=== PATIENT | male | born 1960 | race Caucasian/White ===

== ENCOUNTER → 2020-04-09 09:24 | Outpatient (BNVA) | payer MEDICARE, MEDICAID, SELFPAY | PROVIDERS: PCP Internal Medicine; Referring Provider Internal Medicine; Visit Provider Internal Medicine | DX: J44.9 Chronic obstructive pulmonary disease, unspecified (principal); J30.9 Allergic rhinitis, unspecified; R09.02 Hypoxemia; Z79.899 Other long term (current) drug therapy; Z99.81 Dependence on supplemental oxygen | CPT/HCPCS: 99213 ==

== ENCOUNTER → 2020-07-16 09:50 | Outpatient (BNVA) | payer MEDICARE, MEDICAID, SELFPAY | PROVIDERS: PCP Internal Medicine; Visit Provider Internal Medicine | DX: R09.02 Hypoxemia (principal); J30.9 Allergic rhinitis, unspecified; J44.9 Chronic obstructive pulmonary disease, unspecified | CPT/HCPCS: Q3014 ==

== ENCOUNTER → 2020-10-01 11:32 | Outpatient (BNVA) | payer MEDICARE, MEDICAID, SELFPAY | PROVIDERS: PCP Internal Medicine; Visit Provider Internal Medicine | DX: R09.02 Hypoxemia (principal); J30.9 Allergic rhinitis, unspecified; J44.9 Chronic obstructive pulmonary disease, unspecified; Z87.891 Personal history of nicotine dependence; Z99.81 Dependence on supplemental oxygen; Z79.52 Long term (current) use of systemic steroids; Z79.899 Other long term (current) drug therapy | CPT/HCPCS: Q3014 ==

== ENCOUNTER → 2021-01-01 10:56 | Outpatient (REF) | payer MEDICARE, MEDICAID, SELFPAY ==
--- NOTE | 2021-01-01 11:00 | CA_ITS ---
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 The visually estimated ejection fraction is between 60-65%. - There is moderate calcification of the aortic valve. - There is mild mitral annular calcification. Findings Left Ventricle Normal left ventricular cavity size. There is normal left ventricular wall thickness. The left ventricular systolic function is normal. The visually estimated ejection fraction is between 60-65%. There is no evidence of regional wall motion abnormalities. Diastolic function is indeterminate on the basis of available data. Right Ventricle Normal right ventricular cavity size and systolic function. Atria Both atria are normal in size. Aortic Valve There is moderate calcification of the aortic valve. There is no aortic valve stenosis. There is no aortic valve regurgitation. Mitral Valve There is mild mitral annular calcification. There is trace mitral valve regurgitation. There is no mitral valve stenosis. Pulmonic Valve The pulmonic valve was not well visualized. Tricuspid Valve Normal tricuspid valve structure. There is trace tricuspid valve regurgitation. The pulmonary artery systolic pressure is normal. Great Vessels The aortic annulus, sinuses of valsalva, and asc aorta are normal in size. Venous The inferior vena cava is normal in size and collapses greater than 50% with inspiration. Pericardium/Pleural There is no evidence of pericardial effusion. Prior Study Comparison No significant change compared to prior study dated: 11/24/2018. Measurements 2D Linear Measurements IVSd: 1.04 0.6-0.9/0.6-1.0 cm LVIDd: 4.23 3.9-5.3/4.2-5.9 cm LVIDd Index: 2.30 2.4-3.2/2.2-3.1 cm/m2 LVIDs: 2.38 2.0-3.6 cm LVPWd: 0.83 0.7-1.1 cm Ao Root: 2.70 2.1-3.5 cm LA Diam: 3.20 2.7-3.8/3.0-4.0 cm LAIDs Index: 1.74 1.5-2.3 cm/m2 LV Mass: 157.35 67-162/88-224 g LV Mass Index: 85.51 43-95/49-115 g/m2 LVOT Diam: 2.00 3.0+(-)1.3 cm 2D Systolic Function EF 4C: 59.60 >55% EF 2C: 72.80 >55% EF BiP: 67.80 >55% Mitral Valve MV Pk E: 1.04 MV Decel Time: 157.00 E'Lateral: 11.80 E'Medial: 10.10 E/E' Med: 10.30 E/E' Lat: 8.80 PHT: 46.00 MVA PHT: 4.78 Decel [place]: 6.69 Aortic Valve AoV Pk Andrew: 1.40 AoV Pk Grad: 8.00 LVOT LVOT Pk Andrew: 0.83 LVOT Mn Andrew: 0.58 LVOT VTI: 0.17 LVOT Pk Grad: 3.00 LVOT Mn Grad: 2.00 LVOT Diam: 2.00 LVOT Area: 3.14 Diastolic Function MV Pk E: 1.04 E'Medial: 10.10 E/E' Med: 10.30 E' Laterial: 11.80 E/E' Lat: 8.80 Tricuspid Valve TR Pk Andrew: 2.41 TR Pk Grad: 23.00 RA Press: 3.00 Great Vessels Aorta Ao Root-2D: 2.70 2.0-3.7 cm Ao Asc: 3.20 2.1-3.4 cm Updated in Other Vendor System with Status of Final El Lockett MD electronically signed on 01/02/2021 11:20:40 AM with status of Final
== END ==
LOC: HO.CARD 10:56
PROVIDERS: Visit Provider Internal Medicine Cardiovascular Disease
DX: I48.0 Paroxysmal atrial fibrillation (principal)
CPT/HCPCS: 93306

== ENCOUNTER → 2021-01-09 09:09 | Outpatient (BNVA) | payer MEDICARE, MEDICAID, SELFPAY | PROVIDERS: PCP Internal Medicine; Visit Provider Internal Medicine Cardiovascular Disease | DX: I48.19 Other persistent atrial fibrillation (principal); I10 Essential (primary) hypertension | CPT/HCPCS: Q3014 ==

== ENCOUNTER 2021-01-21 09:35 | Outpatient (REF) | payer MEDICARE, MEDICAID, SELFPAY ==
[2021-01-21 10:29] LABS: Hematocrit 42.3 % (42-52); Hemoglobin 13.6 g/dl (14.0-18.0); Mean Corpuscular HGB Conc 32.2 g/dl (31.0-36.0); Mean Corpuscular Hemoglobin 32.9 pg (27.0-33.0); Mean Corpuscular Volume 102.2 fL (80-98); Mean Platelet Volume 9.2 fL (9.4-12.4); Platelet Count 325 X10*3/uL (160-400); Red Blood Count 4.14 X10*6/uL (4.60-5.80); Red Cell Distribution Width 13.6 % (11.0-16.0); White Blood Count 10.6 X10*3/uL (4.8-10.8)
[2021-01-21 10:47] LABS: B Type Natriuretic Peptide 228 pg/mL (<100)
[2021-01-21 11:08] LABS: Blood Urea Nitrogen 6 mg/dL (9-16); Calcium 9.6 mg/dL (8.4-10.2); Estimated Glomerular Filt Rate > 60; Glucose Random 126 mg/dL (60-115)
[2021-01-21 11:22] LABS: Anion Gap 12 (12-20); Carbon Dioxide 30 mmol/L (22-29); Chloride 105 mmol/L (96-108); Potassium 4.4 mmol/L (3.3-5.1); Sodium 143 mmol/L (135-145)
== END 2021-01-21 09:36 | disposition home or self-care (01) ==
LOC: HO.LAB 09:35
PROVIDERS: PCP Internal Medicine; Visit Provider Internal Medicine Cardiovascular Disease
DX: R60.0 Localized edema (principal)
CPT/HCPCS: 36415; 80048; 83880; 85027

== ENCOUNTER 2021-02-06 07:22 | Day surgery (SDC) | payer MEDICARE, MEDICAID, SELFPAY ==
[2021-01-30 09:37] VITALS: BMI 23.1
--- NOTE | 2021-02-04 08:19 | P.CONAN_ITS ---
Documented by User: Bhakti Servin 02/04/21 08:26 HPI - Anesthesia Eval Consult details Narrative: 60yo M for Cardioversion Xarelto for afib O2 dependant >2L/min Chronic opioids Prednisone daily PMFSH Active Problems Active Problems: All Active Problems (Updated 01/30/21 @ 09:44 by Nikki Carpenter) Leg edema (Acute) Encounter for initial annual wellness visit (AWV) in Medicare patient (Acute) Atrial fibrillation (Acute) HTN (hypertension) (Acute) Persistent atrial fibrillation (Acute) Back pain (Acute) Hypoxemia (Acute) Allergic rhinitis (Acute) COPD (chronic obstructive pulmonary disease) (Acute) Past Medical History Medical History Allergic rhinitis Back pain COPD (chronic obstructive pulmonary disease) COVID-19 vaccine series completed Dependence on continuous supplemental oxygen Elevated cholesterol HTN (hypertension) Hypoxemia On anticoagulant therapy Persistent atrial fibrillation Family History Family History Father No problems noted. Mother No problems noted. Father No problems noted. Mother No problems noted. Surgical History Surgical History H/O colonoscopy History of back surgery History of esophagogastroduodenoscopy (EGD) Social History Social History Housing: Apartment Are you a primary medicare interviewer to a significant other at home: No Do you presently have visiting nurse or other home services: Yes ([employer]) Alcohol intake: never Patient Tobacco Use Status: Former Tobacco user Quit Date: 2000 Tobacco use type: Cigarette e-Cigarette/Vaping Use: Never Used Second Hand Smoke Exposure: No Use of substances other than those prescribed or required for medical reasons: No Have you been hit, kicked, punched, or otherwise hurt by someone within the past year? If so, by whom?: No Are you DNR?: No Advance Directives Information Provided: Yes (states is his sister) Advance Directives on File: No Recently lost weight without trying: No Eating poorly because of decreased appetite: No Nutrition Risks: No Nutritional Risk service: No Current occupational status: disabled Meds Allergies Allergy/AdvReac Type Severity Reaction Status Date / Time No Known Allergies Allergy Verified 02/06/21 07:47 Home Medications Medication Instructions Recorded Confirmed Last Taken Type naloxone 4 mg/actuation nasal spray 1 spray INTRANASAL DAILY PRN 03/23/20 01/30/21 Unknown History quetiapine 200 mg tablet 200 mg PO BEDTIME 03/23/20 01/30/21 Unknown History simvastatin 40 mg tablet 40 mg PO BEDTIME 03/23/20 01/30/21 Unknown History Exam Exam Date and Time: February 04, 2021 0819 Height,Weight and Vital Signs: Height 5 ft 9 in Weight 71.214 kg Pertinent Lab Results Pertinent Lab Results: Laboratory Tests 01/21/21 01/21/21 09:45 09:45 WBC 10.6 Hgb 13.6 L Hct 42.3 Plt Count 325 Sodium 143 Potassium 4.4 Chloride 105 Carbon Dioxide 30 H BUN 6 L Creatinine 0.81 Narrative Narrative: ECHO 12/2020 Conclusions: - The left ventricular systolic function is normal.? The visually estimated ejection fraction is between 60-65%. ? - There is moderate calcification of the aortic valve. ? - There is mild mitral annular calcification.? ?? Assessment and Plan Assessment Anesthesia Assessment: Chart Reviewed Documented by User: Nadir Bernabe 02/06/21 08:27 [facility] Past Medical History Medical History Allergic rhinitis Back pain COPD (chronic obstructive pulmonary disease) COVID-19 vaccine series completed Dependence on continuous supplemental oxygen Elevated cholesterol HTN (hypertension) Hypoxemia On anticoagulant therapy Persistent atrial fibrillation Family History Family History Father No problems noted. Mother No problems noted. Father No problems noted. Mother No problems noted. Family history of problems with anesthesia: No Surgical History Surgical History H/O colonoscopy History of back surgery History of esophagogastroduodenoscopy (EGD) History of Problems with Anesthesia: No Social History Social History Housing: Apartment Are you a primary medicare interviewer to a significant other at home: No Do you presently have visiting nurse or other home services: Yes ([employer]) Alcohol intake: never Patient Tobacco Use Status: Former Tobacco user Quit Date: 2000 Tobacco use type: Cigarette e-Cigarette/Vaping Use: Never Used Second Hand Smoke Exposure: No Use of substances other than those prescribed or required for medical reasons: No Have you been hit, kicked, punched, or otherwise hurt by someone within the past year? If so, by whom?: No Are you DNR?: No Advance Directives Information Provided: Yes (states is his sister) Advance Directives on File: No Recently lost weight without trying: No Eating poorly because of decreased appetite: No Nutrition Risks: No Nutritional Risk service: No Current occupational status: disabled Meds Allergies Allergy/AdvReac Type Severity Reaction Status Date / Time No Known Allergies Allergy Verified 02/06/21 07:47 Home Medications Medication Instructions Recorded Confirmed Last Taken Type naloxone 4 mg/actuation nasal spray 1 spray INTRANASAL DAILY PRN 03/23/20 01/30/21 Unknown History quetiapine 200 mg tablet 200 mg PO BEDTIME 03/23/20 01/30/21 Unknown History simvastatin 40 mg tablet 40 mg PO BEDTIME 03/23/20 01/30/21 Unknown History Exam Airway Mallampati Class: III TM Dist: >3cm Neck ROM: Full Loose/Missing/Broken Teeth: Yes Heart: irreg irreg s1s2 Lungs: + b/s bilaterally Assessment and Plan Assessment Anesthesia Assessment: Anesthesia Plan Discussed and PAT Visit Final Anesthetic Review Family History of Problems with Anesthesia: No History of Problems with Anesthesia: No NPO: Yes ASA Class: III Final Preanesthetic Review: No Changes in Pt Med Stat, Meds/Allgs Chart Reviewed, Consent Obtained/Reviewed and Anes Risks/Benef Reviewed Patient Risk: High Procedure Risk: Intermediate Assessment/Block/Sedation in SS: Assess/Block/Sedation-SS Anesthetic Plan Anesthetic Plan: MAC: and Agree w/ Assess. and Plan Disposition: Standard PACU
[2021-02-06 08:11] VITALS: BP 125/81; PULSE 79; RESP 16; TEMP 36.7; O2SAT 98
[2021-02-06] MEDS: Lactated Ringers 500 ML 20 ML IVCONT (08:25)
--- NOTE | 2021-02-06 11:13 | MHC.SHP ---
Pre-Procedural Eval Section A Date of Service: 02/06/21 The patient is an INPATIENT: No Changes since office visit: Yes Patient answered all questions; No Cold of Flu in the past 2 weeks, No New Medical Problems and No Changes in Medication The History & Physical has been completed within 30 days and I have reviewed it.: Yes Section B Chief Complaint: a-fib Allergies: Allergies Allergy/AdvReac Type Severity Reaction Status Date / Time No Known Allergies Allergy Verified 02/06/21 07:47 Plan I have reviewed the history and physical and performed a pertinent physical examination on my patient. No changes have occurred unless specified.
--- NOTE | 2021-02-06 11:19 | HO.CARDIVERS ---
Cardioversion Procedure Note Cardioversion Date of Procedure: 02/06/2021 Ordering Provider: Myself Performing Provider: Myself Indication for Procedure: Persistent symptomatic atrial fibrillation Pre-Op Diagnosis: Same Post-Op Diagnosis: Sinus rhythm briefly. Recurrent atrial fibrillation Performed with Transesophageal Echo: No History: See my history and physical Consent: Verbal and Written consent was obtained from the patient before starting and confirming oral anticoagulation The patient was made aware of the risk of synchronized cardioversion including risks, benefits, alternatives 2nd opinion. Procedure: After consent obtained, Cardioversion pads were attached In AP configurationand the patient was sedated by the anesthesia team. Once adequate sedation achieved, Patient was delivered 200 joules of biphasic synchronized energy in anteroposterior configuration. After the 1st attempt patient converted to sinus rhythm but again went back into atrial fibrillation. Two more attempts were made. Patient again converted after the 3rd attempt briefly and converted back to atrial fibrillation. Complications: None Impression: Failed cardioversion Recommendations: Plan: 1. Twelve lead EKG 2. Continue oral anticoagulation 3. Will attempt repeat cardioversion after loading up with oral antiarrhythmic therapy, most likely Multaq.
--- NOTE | 2021-02-06 11:24 | ECG_ITS ---
Test Reason : S/P CARDIOVERVSION Blood Pressure : / mmHG Vent. Rate : 082 BPM Atrial Rate : 076 BPM P-R Int : 000 ms QRS Dur : 084 ms QT Int : 366 ms P-R-T Axes : 000 213 020 degrees QTc Int : 427 ms Atrial fibrillation with a competing junctional pacemaker Right superior axis deviation Low voltage QRS Abnormal ECG When compared with ECG of 17-DEC-2018 12:46, Atrial fibrillation has replaced Sinus rhythm Nonspecific T wave abnormality now evident in Inferior leads Referred By: Arley Liz Electronically Signed By:ARLEY LIZ MD
[2021-02-06 11:29] VITALS: BP 116/72; PULSE 83; RESP 16; TEMP 36.5; O2SAT 98
[2021-02-06 11:34] VITALS: BP 103/71; PULSE 81; RESP 16; O2SAT 96
[2021-02-06 11:39] VITALS: BP 107/71; PULSE 86; RESP 17; O2SAT 96
[2021-02-06] MEDS: oxyCODONE HCl Immed Release 5 MG TABLET 10 MG PO (11:42)
[2021-02-06] MEDS: Acetaminophen 325 MG TABLET 650 MG PO (11:43)
[2021-02-06 11:44] VITALS: BP 97/77; PULSE 77; RESP 18; O2SAT 99
[2021-02-06 11:58] VITALS: BP 125/82; PULSE 79; RESP 20; TEMP 36.5; O2SAT 97
== END 2021-02-06 12:27 | disposition home or self-care (01) ==
PROVIDERS: PCP Internal Medicine; Visit Provider Internal Medicine Cardiovascular Disease
PROC: 5A2204Z Restoration of Cardiac Rhythm, Single (ICD-10-PCS; principal; 2021-02-06 11:30)
DX: I48.19 Other persistent atrial fibrillation (principal); I10 Essential (primary) hypertension; J44.9 Chronic obstructive pulmonary disease, unspecified; R60.0 Localized edema; Z79.51 Long term (current) use of inhaled steroids; Z79.52 Long term (current) use of systemic steroids; Z79.899 Other long term (current) drug therapy; Z87.891 Personal history of nicotine dependence
CPT/HCPCS: 92960; 93005; J0330

== ENCOUNTER 2021-02-14 12:04 | Day surgery (SDC) | payer MEDICARE, MEDICAID, SELFPAY ==
--- NOTE | 2021-02-13 08:17 | P.CONAN_ITS ---
HPI - Anesthesia Eval Consult details Narrative: 60yo M for Cardioversion s/p Cardioversion with TIVA 02/06/21 Xarelto for afib O2 dependant >2L/min Chronic opioids Prednisone daily PMFSH Active Problems Active Problems: All Active Problems (Updated 02/07/21 @ 08:51 by Olu Rawls MD) Leg edema (Acute) Encounter for initial annual wellness visit (AWV) in Medicare patient (Acute) Atrial fibrillation (Acute) HTN (hypertension) (Acute) Persistent atrial fibrillation (Acute) Back pain (Acute) Hypoxemia (Acute) Allergic rhinitis (Acute) COPD (chronic obstructive pulmonary disease) (Acute) Past Medical History Medical History Allergic rhinitis Back pain COPD (chronic obstructive pulmonary disease) COVID-19 vaccine series completed Dependence on continuous supplemental oxygen Elevated cholesterol History of cardioversion HTN (hypertension) Hypoxemia On anticoagulant therapy Persistent atrial fibrillation Family History Family History Father No problems noted. Mother No problems noted. Father No problems noted. Mother No problems noted. 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) Alcohol intake: never Patient Tobacco Use Status: Former Tobacco user Quit Date: 2000 Tobacco use type: Cigarette e-Cigarette/Vaping Use: Never Used Second Hand Smoke Exposure: No service: No Current occupational status: disabled Meds Allergies Allergy/AdvReac Type Severity Reaction Status Date / Time No Known Allergies Allergy Verified 02/14/21 12:25 Home Medications Medication Instructions Recorded Confirmed Last Taken Type naloxone 4 mg/actuation nasal spray 1 spray INTRANASAL DAILY PRN 03/23/20 02/07/21 Unknown History quetiapine 200 mg tablet 200 mg PO BEDTIME 03/23/20 02/07/21 Unknown History simvastatin 40 mg tablet 40 mg PO BEDTIME 03/23/20 02/07/21 Unknown History dronedarone 400 mg tablet (Multaq) 1 tab PO BID 02/14/21 02/14/21 Unknown History Exam Exam Date and Time: February 13, 2021 0817 Pertinent Lab Results Pertinent Lab Results: Laboratory Tests ? 01/21/21 01/21/21 ? 09:45 09:45 WBC ?10.6 ? Hgb ?13.6 L ? Hct ?42.3 ? Plt Count ?325 ? Sodium ? ?143 Potassium ? ?4.4 Chloride ? ?105 Carbon Dioxide ? ?30 H BUN ? ?6 L Creatinine ? ?0.81 Narrative Narrative: ECHO 12/2020 Conclusions: - The left ventricular systolic function is normal.? The visually estimated ejection fraction is between 60-65%. ? - There is moderate calcification of the aortic valve. ? - There is mild mitral annular calcification.? ?? Assessment and Plan Assessment Anesthesia Assessment: Chart Reviewed Final Anesthetic Review Family History of Problems with Anesthesia: No History of Problems with Anesthesia: No
[2021-02-14] VITALS (7 sets, daily range): BP systolic 94–105; BP diastolic 64–80; PULSE 67–77; RESP 16–20; TEMP 36.2–36.6; O2SAT 95–98; BMI 23.1
[2021-02-14] MEDS: Lactated Ringers 1,000 ML 100 ML IVCONT (13:00)
--- NOTE | 2021-02-14 13:51 | P.HPSUR_ITS ---
Pre-Procedural Eval Section A Date of Service: 02/14/21 Section B Chief Complaint: A-fib Details of Present Illness: Patient persistent shortness of breath and persistent atrial fibrillation, failed cardioversion a week ago. Brought back with loading of antiarrhythmic such. Confirmed oral anticoagulation. Relevant Family History (Specify if Yes): No Relevant Social History: None Present Medications: see Short Stay Collaborative assessment Medical History: Significant History Allergies: Allergies Allergy/AdvReac Type Severity Reaction Status Date / Time No Known Allergies Allergy Verified 02/14/21 12:25 Review of Systems Sugical H&P ROS: Negative: Constitution, Respiratory, Neurological, Hem-Onc, Allergic/Immunologic, Gastrointestinal, Genitourinary and Musculoskeletal and Yes, Specify: Cardiovascular (Shortness of breath on exertion) Exam Surgical H&P Exam: Normal: HEENT, Normal: Extremities, Normal: Abdomen, Normal: Skin and Normal: Neurological and Significant Findings: Heart (Irregularly irr egular rhythm) and Significant Findings: Lungs (Reduced air entry) Plan Diagnosis/Plan: Unchanged I have reviewed the history and physical and performed a pertinent physical examination on my patient. No changes have occurred unless specified. Proceed with planned cardioversion as before
--- NOTE | 2021-02-14 13:52 | P.CONAN_ITS ---
[facility] Active Problems Active Problems: All Active Problems (Updated 02/14/21 @ 12:25 by Melida lu RN) Leg edema (Acute) Encounter for initial annual wellness visit (AWV) in Medicare patient (Acute) Atrial fibrillation (Acute) HTN (hypertension) (Acute) Persistent atrial fibrillation (Acute) Back pain (Acute) Hypoxemia (Acute) Allergic rhinitis (Acute) COPD (chronic obstructive pulmonary disease) (Acute) Past Medical History Medical History Allergic rhinitis Back pain COPD (chronic obstructive pulmonary disease) COVID-19 vaccine series completed Dependence on continuous supplemental oxygen Elevated cholesterol History of cardioversion HTN (hypertension) Hypoxemia On anticoagulant therapy Persistent atrial fibrillation Functional capacity: independent ambulation Family History Family History Father No problems noted. Mother No problems noted. Father No problems noted. Mother No problems noted. Family history of problems with anesthesia: No Surgical History Surgical History H/O colonoscopy History of back surgery History of esophagogastroduodenoscopy (EGD) History of Problems with Anesthesia: No Social History Social History Housing: Apartment Are you a primary college and career counselor to a significant other at home: No Do you presently have visiting nurse or other home services: Yes ([employer]) Alcohol intake: never Patient Tobacco Use Status: Former Tobacco user Quit Date: 2000 Tobacco use type: Cigarette e-Cigarette/Vaping Use: Never Used Second Hand Smoke Exposure: No Use of substances other than those prescribed or required for medical reasons: No Are you DNR?: No Advance Directives: No Advance Directives Information Provided: Yes service: No Current occupational status: disabled Meds Allergies Allergy/AdvReac Type Severity Reaction Status Date / Time No Known Allergies Allergy Verified 02/14/21 12:25 Active Medications: Current Medications Generic Name Dose Route Start Last Admin Trade Name Freq PRN Reason Stop Dose Admin Albuterol Sulfate 2.5 mg 02/14/21 12:19 Albuterol Sulfate (0.083%) 2.5 Mg/3 Ml Vial.Neb INHALE ONCE PRN Shortness of Breath/Wheezing Lactated Ringer's 1,000 mls @ 100 mls/hr 02/14/21 12:30 02/14/21 13:00 Lr IVCONT 100 mls/hr .Q10H SARAY Administration Home Medications Medication Instructions Recorded Confirmed Last Taken Type naloxone 4 mg/actuation nasal spray 1 spray INTRANASAL DAILY PRN 03/23/20 02/07/21 Unknown History quetiapine 200 mg tablet 200 mg PO BEDTIME 03/23/20 02/07/21 Unknown History simvastatin 40 mg tablet 40 mg PO BEDTIME 03/23/20 02/07/21 Unknown History dronedarone 400 mg tablet (Multaq) 1 tab PO BID 02/14/21 02/14/21 Unknown History Exam Exam Date and Time: February 14, 2021 1352 Height,Weight and Vital Signs: Height 5 ft 9 in Weight 71.214 kg Last Vital Signs Temp 97.3 F 02/14/21 12:46 Pulse 73 02/14/21 12:46 Resp 18 02/14/21 12:46 BP 98/67 02/14/21 12:46 Pulse Ox 98 02/14/21 12:46 Assessment and Plan Final Anesthetic Review Family History of Problems with Anesthesia: No History of Problems with Anesthesia: No
--- NOTE | 2021-02-14 14:02 | HO.CARDIVERS ---
Cardioversion Procedure Note Cardioversion Date of Procedure: 02/14/2021 Ordering Provider: Myself Performing Provider: Myself Indication for Procedure: Persistent atrial fibrillation and failed cardioversion without antiarrhythmic Pre-Op Diagnosis: Same Post-Op Diagnosis: Persistent atrial fibrillation Performed with Transesophageal Echo: No History: Sees tree and physical for details Consent: Verbal and Written consent was obtained from the patient before starting and confirming oral anticoagulation use as well as use of Multaq. The patient was made aware of the risk of synchronized cardioversion including risks, benefits, alternatives and 2nd opinion Procedure: After consent obtained, cardioversion pads were attached and the patient was sedated by the anesthesia team. Once adequate sedation achieved, patient was delivered 200 joules of biphasic synchronized energy in anteroposterior configuration times 2 Complications: None Impression: Sales cardioversion Recommendations: Plan 1. Discontinue Multaq due to ineffectiveness 2. Continue full oral anticoagulation 3. Follow up as outpatient to discuss further options
--- NOTE | 2021-02-14 15:21 | HO.POSTANES ---
Post Anesthesia Evaluation Post Anesthesia Evaluation Vital Signs: Vital Signs Temp Pulse Resp BP Pulse Ox 02/14/21 14:55 97.2 F 70 18 105/80 98 02/14/21 14:40 73 18 98/64 98 02/14/21 14:25 77 20 99/69 96 02/14/21 14:20 72 18 95/68 95 02/14/21 14:15 67 17 97/68 96 02/14/21 14:10 97.8 F 71 16 94/68 97 02/14/21 12:46 97.3 F 73 18 98/67 98 Anesthesia: General Mental Status: Awake Pain Control: Satisfactory Nausea/Vomiting: None Hydration: Adequate Anesthesia-Related Issues: No Anes. Related Issues
== END 2021-02-14 15:40 | disposition home or self-care (01) ==
PROVIDERS: PCP Internal Medicine; Visit Provider Internal Medicine Cardiovascular Disease
PROC: 5A2204Z Restoration of Cardiac Rhythm, Single (ICD-10-PCS; principal; 2021-02-14 13:30)
DX: I48.19 Other persistent atrial fibrillation (principal); Z79.01 Long term (current) use of anticoagulants; I10 Essential (primary) hypertension; J44.9 Chronic obstructive pulmonary disease, unspecified; R09.02 Hypoxemia; Z79.899 Other long term (current) drug therapy; Z87.891 Personal history of nicotine dependence
CPT/HCPCS: 92960; J0461

== ENCOUNTER → 2021-02-20 09:26 | Outpatient (BNVA) | payer MEDICARE, MEDICAID, SELFPAY | PROVIDERS: PCP Internal Medicine; Referring Provider Internal Medicine; Visit Provider Internal Medicine Cardiovascular Disease ==

== ENCOUNTER → 2021-03-13 12:47 | Outpatient (BNVA) | payer MEDICARE, MEDICAID, SELFPAY | PROVIDERS: PCP Internal Medicine; Referring Provider Internal Medicine; Visit Provider Internal Medicine Cardiovascular Disease | DX: I48.19 Other persistent atrial fibrillation (principal); J96.11 Chronic respiratory failure with hypoxia | CPT/HCPCS: 93005; 99212 ==

== ENCOUNTER → 2021-03-18 14:56 | Outpatient (REF) | payer MEDICARE, MEDICAID, SELFPAY ==
--- NOTE | 2021-03-18 15:00 | HM_ITS ---
Total monitoring time 3 days. Underlying rhythm is atrial fibrillation. The heart rate 63/Min. Maximum 122/minute. Average 86/Min. No significant bradycardia. Minimal tachycardia-0.81%. Rare PVCs-burden 0.26%. One morphology. No patient events. Overall, adequate rate control of atrial fibrillation. MTDD
== END ==
LOC: HO.CARD 14:56
PROVIDERS: Visit Provider Internal Medicine Cardiovascular Disease
DX: I49.3 Ventricular premature depolarization (principal); I48.19 Other persistent atrial fibrillation
CPT/HCPCS: 93226; 93242

== ENCOUNTER → 2021-05-08 10:59 | Outpatient (BNVA) | payer MEDICARE, MEDICAID, SELFPAY | PROVIDERS: PCP Internal Medicine; Visit Provider Internal Medicine | DX: J30.9 Allergic rhinitis, unspecified (principal); J96.11 Chronic respiratory failure with hypoxia; J44.9 Chronic obstructive pulmonary disease, unspecified | CPT/HCPCS: 99212 ==

== ENCOUNTER → 2021-09-30 10:49 | Outpatient (BNVA) | payer MEDICARE, MEDICAID, SELFPAY | PROVIDERS: PCP Internal Medicine; Visit Provider Internal Medicine | DX: J96.11 Chronic respiratory failure with hypoxia (principal); J30.9 Allergic rhinitis, unspecified; J44.9 Chronic obstructive pulmonary disease, unspecified | CPT/HCPCS: 94010; 99212 ==

== ENCOUNTER 2022-02-11 09:23 | Outpatient (REF) | payer MEDICARE, SELFPAY ==
[2022-02-11 09:34] LABS: MANUAL DIFF FLAG NO
[2022-02-11 11:05] LABS: Basophils Absolute Auto 0.1 X10*3/uL (0.0-0.2); Basophils Percent Auto 0.7 % (0-2); Eosinophils Absolute Auto 0.3 X10*3/uL (0.0-0.4); Eosinophils Percent Auto 2.8 % (0-4); Hematocrit 38.1 % (42.0-52.0); Hemoglobin 12.3 g/dl (14.0-18.0); Imm Gran Abs Auto 0.12 X10*3/uL (0.00-0.03); Imm Gran Pct Auto 1.1 % (0.0-0.4); Lymphocytes Absolute Auto 2.6 X10*3/uL (1.2-4.9); Lymphocytes Percent Auto 23.8 % (20-40); Mean Corpuscular HGB Conc 32.3 g/dl (31.0-36.0); Mean Corpuscular Hemoglobin 32.4 pg (27.0-33.0); Mean Corpuscular Volume 100.3 fL (80.0-98.0); Mean Platelet Volume 9.9 fL (9.4-12.4); Monocytes Percent Auto 9.1 % (2-11); Neutrophils Absolute Auto 6.9 x10*3/uL (2.0-8.3); Neutrophils Percent Auto 62.5 % (45-73); Platelet Count 338 X10*3/uL (160-400); Red Cell Distribution Width 13.2 % (11.0-16.0)
[2022-02-11 11:32] LABS: Anion Gap 16 (12-20); Blood Urea Nitrogen 9 mg/dL (9-16); Calcium 9.8 mg/dL (8.4-10.2); Carbon Dioxide 34 mmol/L (22-29); Chloride 98 mmol/L (96-108); Estimated Glomerular Filt Rate > 60; Glucose Random 105 mg/dL (60-115); Potassium 4.2 mmol/L (3.3-5.1); Sodium 144 mmol/L (135-145)
[2022-02-11 11:44] LABS: Thyroid Stimulating Hormone 1.27 uIU/mL (0.32-4.0)
== END 2022-02-11 09:24 | disposition home or self-care (01) ==
LOC: HO.LAB 09:23
PROVIDERS: PCP Internal Medicine; Visit Provider Internal Medicine
DX: Z13.0 Encounter for screening for diseases of the blood and blood-forming organs and certain disorders involving the immune mechanism (principal); E03.9 Hypothyroidism, unspecified; R51.9 Headache, unspecified
CPT/HCPCS: 36415; 80048; 84443; 85025

== ENCOUNTER → 2022-03-23 10:49 | Outpatient (BNVA) | payer MEDICARE, MEDICAID, SELFPAY | PROVIDERS: PCP Internal Medicine; Visit Provider Internal Medicine | DX: J44.9 Chronic obstructive pulmonary disease, unspecified (principal); J30.9 Allergic rhinitis, unspecified; J96.11 Chronic respiratory failure with hypoxia | CPT/HCPCS: 99212 ==

== ENCOUNTER → 2022-06-02 10:42 | Outpatient (BNVA) | payer MEDICARE, MEDICAID, SELFPAY | PROVIDERS: PCP Internal Medicine; Visit Provider Internal Medicine | DX: J44.9 Chronic obstructive pulmonary disease, unspecified (principal); J96.11 Chronic respiratory failure with hypoxia; J30.9 Allergic rhinitis, unspecified; Z79.899 Other long term (current) drug therapy; Z99.81 Dependence on supplemental oxygen | CPT/HCPCS: 99212 ==

== ENCOUNTER 2022-09-07 15:54 | Inpatient (IN) | payer MEDICARE, MEDICAID, SELFPAY ==
--- NOTE | 2022-09-07 | ECG_ITS ---
Test Reason : SOB Blood Pressure : / mmHG Vent. Rate : 083 BPM Atrial Rate : 000 BPM P-R Int : 000 ms QRS Dur : 088 ms QT Int : 362 ms P-R-T Axes : 000 228 034 degrees QTc Int : 425 ms Atrial fibrillation Pulmonary disease pattern Right ventricular hypertrophy Septal infarct , age undetermined Abnormal ECG When compared with ECG of 06-FEB-2021 11:43, Septal infarct is now Present Referred By: Zuleika Thompson Electronically Signed By:Rodri Cox
--- NOTE | ~2022-09-07 | XR_ITS ---
EXAMINATION: XR CHEST CLINICAL INFORMATION: Shortness of breath COMPARISON: 12/17/2018 TECHNIQUE: Frontal view of the chest was obtained. FINDINGS: Skin folds are seen over the right hemithorax. The lungs are well expanded. Oligemia of the upper lungs suggestive of emphysema. No definite pneumothorax seen. No dense consolidation. No pleural effusion. The cardiomediastinal silhouette is normal in size. No acute osseous abnormality. XR/XR chest 1V IMPRESSION: Oligemia of the upper lungs suggestive of emphysema. No acute pulmonary finding.
--- NOTE | ~2022-09-07 | CT_ITS ---
EXAMINATION: CT CHEST WITHOUT CONTRAST CLINICAL INFORMATION: Shortness of breath. Sepsis. COMPARISON: Chest x-rays dating back to 2019. TECHNIQUE: Multidetector volumetric CT imaging of the chest was done. Axial MIP volume rendering provided. Sagittal and coronal reformatted images were obtained. This CT examination was performed using dose optimization techniques as appropriate, variously including the following: *Automated exposure control *Adjustment of mA and/or kV according to patient size (this includes techniques or standardized protocols for targeted exams where dose is matched to indication/reason for exam; i.e. extremities or head) *Use of iterative reconstruction technique DLP: 273 mGy-cm FINDINGS: LUNGS: Severe emphysema, associated with hyperexpansion of the right lower lobe, which is nearly entirely replaced by large bulla, many of which have espinal that are barely perceptible. The right lower lobe bronchus compressed by the hyperexpanded right lower lobe as best shown on axial images 280-330, and coronal images 40-43. There are transverse diameter of the trachea i.e. saber-sheath trachea. No focal consolidation or evidence of pneumonitis. No suspicious pulmonary nodules. MEDIASTINUM: Normal heart size. No pericardial effusion. No mediastinal, hilar or supraclavicular lymphadenopathy. CORONARY ARTERY CALCIFICATION: Triple vessel coronary calcifications. PLEURA: There is no pleural effusion. No pleural mass or thickening. AXILLA: No lymphadenopathy. UPPER ABDOMEN: Unremarkable. OSSEOUS STRUCTURES: No acute or suspicious osseous abnormalities. Posterior spinal fusion extends from T11 inferiorly. Chronic anterior wedge compression fractures at T12-L1. CT/CT chest wo IV con IMPRESSION: * Severe emphysema with hyperexpansion of the right lower lobe, which is nearly entirely replaced by large bulla. This appears to result in mass effect upon the right lower lobe bronchus which is collapsed (see sales images). This may be creating a ball valve mechanism, contributing to the hyperexpansion. * No evidence of pneumonitis or pneumonia. * Saber-sheath trachea indicative of COPD. * Triple vessel coronary calcifications.
[2022-09-07 16:12] VITALS: BP 128/70; BP 131/80; PULSE 87; PULSE 95; RESP 17; TEMP 37.1; O2SAT 95; BMI 19.2
--- NOTE | 2022-09-07 16:38 | ED_ITS ---
HPI - SOB/Dyspnea General Chief Complaint: Dyspnea Stated Complaint: sob Time Seen by Provider: 09/07/22 16:10 Source: patient Mode of arrival: ambulatory Limitations: no limitations History of Present Illness HPI Narrative: this is a 62-year-old male history of atrial fibrillation on rivaroxaban, COPD, leg edema, hypertension, presenting to the emergency department complaints of productive cough, chest pain, shortness of breath, neck pain, lower extremity edema that all started this morning. Chest pain is substernal in nature, nonradiating and sharp described as severe and intermittent. Shortness of tera th present both at rest and with exertion. Cough productive of thick sputum. Patient tells me he has lower extremity edema however is been much worse since this morning. Patient reports discomfort to his neck which is atraumatic in nature, constant, worse with movement better at rest. Denies fevers, chills, headache, dizziness, weakness, nausea, vomiting, abdominal pain, numbness or tingling, weakness. patient wears 3 L oxygen via nasal cannula at home Related Data Home Medications Medication Instructions Recorded Confirmed naloxone 4 mg/actuation nasal spray 1 spray intranasal DAILY PRN 03/23/20 08/21/22 Opiate Reversal Previous Rx's Medication Instructions Recorded famotidine 40 mg tablet 40 mg PO DAILY #90 tabs 09/05/21 rivaroxaban 20 mg tablet (Xarelto) 20 mg PO QPM 30 days #30 tabs 09/08/21 diltiazem HCl 180 mg 180 mg PO BID #90 caps 09/10/21 capsule,extended release 24 hr magnesium oxide 400 mg (241.3 mg 400 mg PO DAILY PRN constipation 10/21/21 magnesium) tablet #90 tabs ipratropium 0.5 mg-albuterol 3 mg 3 ml inhalation Q6H PRN shortness 02/09/22 (2.5 mg base)/3 mL nebulization of breath or wheezing 90 days soln #1,080 mL furosemide 20 mg tablet 40 mg PO DAILY PRN edema #180 tabs 03/30/22 quetiapine 200 mg tablet 200 mg PO BEDTIME #30 tabs 05/06/22 guaifenesin 100 mg/5 mL oral liquid 100 mg (5 mL) PO Q6H PRN cough 05/26/22 #473 mL simvastatin 40 mg tablet 40 mg PO BEDTIME #90 tabs 05/26/22 zolpidem 10 mg tablet 10 mg PO BEDTIME PRN insomnia #30 06/10/22 tabs metoprolol succinate 100 mg 50 mg PO TID #90 tabs 06/13/22 tablet,extended release 24 hr fluticasone 250 mcg-salmeterol 50 1 ea PO BID #180 ea 06/23/22 mcg/dose blistr powdr for inhalation trazodone 100 mg tablet 100 mg PO BEDTIME #90 tabs 08/10/22 lorazepam 0.5 mg tablet 0.5 mg PO Q6H PRN anxiety #90 tabs 08/12/22 oxycodone 5 mg tablet 5 mg PO Q4-6H PRN pain 28 days 08/21/22 #140 tabs albuterol sulfate 90 mcg/actuation 2 puff inhalation Q6H PRN 09/03/22 aerosol inhaler bronchospasm #8.5 grams prednisone 5 mg tablet 5 mg PO DAILY #30 tabs 09/07/22 Allergies Allergy/AdvReac Type Severity Reaction Status Date / Time No Known Allergies Allergy Verified 08/21/22 08:35 Review of Systems Review of Systems: Constitutional : No Weight loss, No Fever, No Chills, + Fatigue, + Malaise ENT/Mouth : No sore throat, No Rhinorrhea Eyes: No Eye Pain, No Swelling, No Redness Cardiovascular : + Chest Pain, + SOB, + Dyspnea on Exertion, No Orthopnea, + Edema, No Palpitations Respiratory : No Cough, No Sputum, No Wheezing Gastrointestinal : No Nausea, No Vomiting, No Diarrhea, No Constipation, No abdominal Pain, No Hematochezia, No Melena Genitourinary : No Dysuria, No Urinary Frequency, No Hematuria, Musculoskeletal : No joint pain, No Myalgias, No Joint Swelling Skin : No Skin Lesions, No rash Neuro : No Weakness, No Numbness, No Dizziness, No Headache Psych : No Anxiety/Panic, No Depression All other systems reviewed and are negative Yes all other systems are reviewed and are negative [facility] Past Medical History Attestation statement: The following information was validated with the patient. Source: old records reviewed and nursing notes reviewed Medical History Allergic rhinitis Back pain Chronic respiratory failure with hypoxia COPD (chronic obstructive pulmonary disease) COVID-19 vaccine series completed Dependence on continuous supplemental oxygen Elevated cholesterol History of cardioversion HTN (hypertension) Hypoxemia On anticoagulant therapy Persistent atrial fibrillation Surgical History H/O colonoscopy History of back surgery History of esophagogastroduodenoscopy (EGD) Family History Family History Father No problems noted. Mother No problems noted. Father No problems noted. Mother No problems noted. Social History Social History Housing: Apartment Are you a primary intensive care unit registered nurse to a significant other at home: No Do you presently have visiting nurse or other home services: Yes ([employer]) Alcohol intake: never Patient Tobacco Use Status: Former Tobacco user Quit Date: 2000 Tobacco use type: Cigarette Smoked in Last 30 Days: No e-Cigarette/Vaping Use: Never Used Second Hand Smoke Exposure: No Use of substances other than those prescribed or required for medical reasons: No Advance Directives: No Advance Directives Information Provided: No service: No Current occupational status: disabled Cognitive needs: No Hearing needs: No Vision needs: Yes Physical Exam Vital Signs: Vital Signs: Last Vital Signs Temp 98.8 F 09/07/22 16:12 Pulse 118 H 09/07/22 20:00 Resp 12 09/07/22 20:00 BP 116/73 09/07/22 20:00 Pulse Ox 98 09/07/22 20:00 O2 Del Method 09/07/22 20:00 O2 Flow Rate 4 09/07/22 18:34 Oxygen Flow Rate 5 09/07/22 16:12 BMI result Body Mass Index 19.2 vss Appearance: Alert.? Oriented X3.? No acute distress.? Head: Normocephalic, atraumatic, no step-offs or deformities Eyes: Pupils equal, round and reactive to light.? Neck: Normal inspection.? Neck supple.? CVS: Normal heart rate and rhythm.? Pulses normal.? Respiratory: No respiratory distress.? Breath sounds With diffuse wheezing throughout particularly on expiration.? Abdomen: Soft and nontender.? Skin: Skin warm and dry.? Normal skin color.? Normal skin turgor.? Extremities: No lower extremity edema.? No calf ttp. 5/5 strength to bilateral upper and lower extremities Neuro: Oriented X 3.? No motor deficit.? No sensory deficit. CN 2-12 intact Course Reevaluation(s) Reevaluation #1: Patient is noted to have elevated white blood cell count 14.0, blood cultures, lactic acid ordered at this time as well as ceftriaxone for empiric coverage for possible URI versus pneumonia versus chronic lung disease. Chemistry with old female of the right upper lung suggesting emphysema. No acute pulmonary findings noted. Chemistry pending. Time: 16:58 Reevaluation #2: patient's chemistry with elevated carbon dioxide level 39, patient's baseline around 30-34, will obtain VBG to further evaluate this. Patient is mentating well. No other acute electrolyte abnormalities requiring intervention. Patient's BNP within normal limits. Total bilirubin 2.2 elevated however there is no abdominal tenderness to palpation, low suspicion for intra-abdominal etiology. Time: 17:23 Reevaluation #3: Patient continues to have wheezing. Lactic WNL. Patient saturating well on home O2 but patient with significant SOB and labored breathing despite multiple breathing tx, atbx, mag, solumedrol, will admit to hospitalist for chronic lung disease w/ Acute exacerbation. Time: 21:16 Medications Administered Discontinued Medications Generic Name Dose Route Start Last Admin Trade Name Freq PRN Reason Stop Dose Admin Albuterol Sulfate 7.5 mg 09/07/22 18:36 09/07/22 18:54 Albuterol Sulfate (0.083%) 2.5 Mg/3 Ml Vial.Neb INHALE 09/07/22 18:37 Not Given ONCE ONE Albuterol Sulfate 5 mg 09/07/22 20:27 09/07/22 21:14 Albuterol Sulfate (0.083%) 2.5 Mg/3 Ml Vial.Neb INHALE 09/07/22 20:28 Not Given ONCE ONE Albuterol Sulfate 7.5 mg/ 0 mg 09/07/22 16:50 09/07/22 18:48 Ipratropium [place] 0.5 mg INHALE 09/07/22 16:51 1 each ONCE ONE Administration Magnesium Sulfate 2 gm in 50 mls @ 25 mls/hr 09/07/22 16:50 09/07/22 20:01 Magnesium Sulfate/H2o IV 09/07/22 18:49 Infused ONCE ONE Infusion Ceftriaxone Sodium 1 gm/ 50 mls @ 100 mls/hr 09/07/22 16:56 09/07/22 20:00 Sodium Chloride IV 09/07/22 17:25 Infused ONCE ONE Infusion Methylprednisolone Sodium Succinate 125 mg 09/07/22 16:50 09/07/22 17:07 Methylprednisolone Sod Succ 125 Mg/2 Ml Vial IVPUSH 09/07/22 16:51 125 mg ONCE ONE Administration Medical Decision Making Medical Decision Making [facility] Narrative: 1643 62-year-old male presents with productive cough, chest pain, shortness of breath, lower extremity edema , atraumatic neck pain started this morning. Physical exam with diffuse wheezing throughout particularly with expiration Concerns for possible chronic lung disease vs pna. I do not suspect ACS, PE as patient is anticoagulated,. History and physical exam not consistent with aortic dissection. Will rule out CHF. Unlikely venous or arterial occlusion Plan labs, imaging, troponin, chest x-ray. Differential Diagnosis Differential Diagnoses: The differential diagnosis associated with the presentation includes Concerns for possible chronic lung disease vs pna. I do not suspect ACS, PE as patient is anticoagulated,. History and physical exam not consistent with aortic dissection. Will rule out CHF. Unlikely venous or arterial occlusion Admission/Observation Consideration of admission/observation: Escalation of care including admission/observation considered Lab Data [facility] Lab Attestation statement: I reviewed the patient's lab results. 09/07/22 16:43 09/07/22 16:43 Labs: Lab Results 09/07/22 09/07/22 09/07/22 Range/Units 16:43 16:43 16:43 WBC 14.0 H (4.8-10.8) X10*3/uL RBC 4.02 L (4.60-5.80) X10*6/uL Hgb 13.0 L (14.0-18.0) g/dl Hct 39.8 L (42.0-52.0) % MCV 99.0 H (80.0-98.0) fL MCH 32.3 (27.0-33.0) pg MCHC 32.7 (31.0-36.0) g/dl RDW 14.1 (11.0-16.0) % Plt Count 221 D (160-400) X10*3/uL MPV 9.1 L (9.4-12.4) fL Immature Gran % (Auto) 0.7 H (0.0-0.4) % Neut % (Auto) 79.6 H (45-73) % Lymph % (Auto) 9.4 L (20-40) % [place] % (Auto) 8.6 (2-11) % Eos % (Auto) 1.3 (0-4) % Baso % (Auto) 0.4 (0-2) % Lymph # (Auto) 1.3 (1.2-4.9) X10*3/uL [place] # (Auto) 1.2 (0.1-1.2) X10*3/uL Eos # (Auto) 0.2 (0.0-0.4) X10*3/uL Baso # (Auto) 0.1 (0.0-0.2) X10*3/uL Abs Immat Gran (auto) 0.10 H (0.00-0.03) X10*3/uL Absolute Neuts (auto) 11.2 H (2.0-8.3) x10*3/uL Absolute Nucleated RBC 0.000 (0.0-0.012) X10*3/uL Nucleated RBC % (auto) 0.0 (0.0-0.2) /100WBC VBG pH (7.32-7.43) VBG pCO2 mmHg VBG pO2 mmHg VBG HCO3 (22-26) mmol/L VBG O2 Saturation % VBG Base Excess mmol/L Sodium 137 (135-145) mmol/L Potassium 3.7 (3.3-5.1) mmol/L Chloride 90 L (96-108) mmol/L Carbon Dioxide 39 H (22-29) mmol/L Anion Gap 12 (12-20) BUN 9 (9-16) mg/dL Creatinine 0.81 (0.5-1.4) mg/dL Estim Creat Clear Calc 76.8 Estimated GFR > 60 Random Glucose 120 H (60-115) mg/dL Lactic Acid (0.5-2.0) mmol/L Calcium 9.4 (8.4-10.2) mg/dL Magnesium 1.9 (1.6-2.6) mg/dL Total Bilirubin 2.2 H (0.0-1.0) mg/dL AST 16 (5-37) U/L ALT 16 (0-40) U/L Alkaline Phosphatase 68 (39-117) U/L Troponin I High Sens < 3.5 (<3.5-35.0) ng/L B-Natriuretic Peptide (<100) pg/mL Total Protein 6.7 (6.5-8.0) g/dL Albumin 4.2 (3.5-5.0) g/dL Urine Color Urine Appearance Urine pH (5.0-9.0) Ur Specific [place] (1.005-1.025) Urine Protein (Neg-Trace) mg/dL Urine Glucose (UA) (Negative) mg/dL Urine Ketones (Negative) mg/dL Urine Blood (Negative) Urine Nitrite (Negative) Ur Leukocyte Esterase (Negative) Urine RBC (0-2) /HPF Urine WBC (0-5) /HPF Ur Squamous Epith Cells (0-2) /HPF Urine Bacteria (None Seen) Hyaline Casts (0-2) /LPF COVID-19 (DANY) (Negative) COVID-19 Clin Com Influenza Type A (KEVIN) (Negative) Influenza Type B (KEVIN) (Negative) Influenza A & B Note 09/07/22 09/07/22 09/07/22 Range/Units 16:43 16:43 16:43 WBC (4.8-10.8) X10*3/uL RBC (4.60-5.80) X10*6/uL Hgb (14.0-18.0) g/dl Hct (42.0-52.0) % MCV (80.0-98.0) fL MCH (27.0-33.0) pg MCHC (31.0-36.0) g/dl RDW (11.0-16.0) % Plt Count (160-400) X10*3/uL MPV (9.4-12.4) fL Immature Gran % (Auto) (0.0-0.4) % Neut % (Auto) (45-73) % Lymph % (Auto) (20-40) % [place] % (Auto) (2-11) % Eos % (Auto) (0-4) % Baso % (Auto) (0-2) % Lymph # (Auto) (1.2-4.9) X10*3/uL [place] # (Auto) (0.1-1.2) X10*3/uL Eos # (Auto) (0.0-0.4) X10*3/uL Baso # (Auto) (0.0-0.2) X10*3/uL Abs Immat Gran (auto) (0.00-0.03) X10*3/uL Absolute Neuts (auto) (2.0-8.3) x10*3/uL Absolute Nucleated RBC (0.0-0.012) X10*3/uL Nucleated RBC % (auto) (0.0-0.2) /100WBC VBG pH (7.32-7.43) VBG pCO2 mmHg VBG pO2 mmHg VBG HCO3 (22-26) mmol/L VBG O2 Saturation % VBG Base Excess mmol/L Sodium (135-145) mmol/L Potassium (3.3-5.1) mmol/L Chloride (96-108) mmol/L Carbon Dioxide (22-29) mmol/L Anion Gap (12-20) BUN (9-16) mg/dL Creatinine (0.5-1.4) mg/dL Estim Creat Clear Calc Estimated GFR Random Glucose (60-115) mg/dL Lactic Acid (0.5-2.0) mmol/L Calcium (8.4-10.2) mg/dL Magnesium (1.6-2.6) mg/dL Total Bilirubin (0.0-1.0) mg/dL AST (5-37) U/L ALT (0-40) U/L Alkaline Phosphatase (39-117) U/L Troponin I High Sens (<3.5-35.0) ng/L B-Natriuretic Peptide 85 (<100) pg/mL Total Protein (6.5-8.0) g/dL Albumin (3.5-5.0) g/dL Urine Color Urine Appearance Urine pH (5.0-9.0) Ur Specific [place] (1.005-1.025) Urine Protein (Neg-Trace) mg/dL Urine Glucose (UA) (Negative) mg/dL Urine Ketones (Negative) mg/dL Urine Blood (Negative) Urine Nitrite (Negative) Ur Leukocyte Esterase (Negative) Urine RBC (0-2) /HPF Urine WBC (0-5) /HPF Ur Squamous Epith Cells (0-2) /HPF Urine Bacteria (None Seen) Hyaline Casts (0-2) /LPF COVID-19 (DANY) Negative (Negative) COVID-19 Clin Com See Note Influenza Type A (KEVIN) Negative (Negative) Influenza Type B (KEVIN) Negative (Negative) Influenza A & B Note See Note 09/07/22 09/07/22 09/07/22 Range/Units 17:29 17:33 19:32 WBC (4.8-10.8) X10*3/uL RBC (4.60-5.80) X10*6/uL Hgb (14.0-18.0) g/dl Hct (42.0-52.0) % MCV (80.0-98.0) fL MCH (27.0-33.0) pg MCHC (31.0-36.0) g/dl RDW (11.0-16.0) % Plt Count (160-400) X10*3/uL MPV (9.4-12.4) fL Immature Gran % (Auto) (0.0-0.4) % Neut % (Auto) (45-73) % Lymph % (Auto) (20-40) % [place] % (Auto) (2-11) % Eos % (Auto) (0-4) % Baso % (Auto) (0-2) % Lymph # (Auto) (1.2-4.9) X10*3/uL [place] # (Auto) (0.1-1.2) X10*3/uL Eos # (Auto) (0.0-0.4) X10*3/uL Baso # (Auto) (0.0-0.2) X10*3/uL Abs Immat Gran (auto) (0.00-0.03) X10*3/uL Absolute Neuts (auto) (2.0-8.3) x10*3/uL Absolute Nucleated RBC (0.0-0.012) X10*3/uL Nucleated RBC % (auto) (0.0-0.2) /100WBC VBG pH 7.46 H (7.32-7.43) VBG pCO2 50 mmHg VBG pO2 51 mmHg VBG HCO3 35 H (22-26) mmol/L VBG O2 Saturation 82.0 % VBG Base Excess 10.3 mmol/L Sodium (135-145) mmol/L Potassium (3.3-5.1) mmol/L Chloride (96-108) mmol/L Carbon Dioxide (22-29) mmol/L Anion Gap (12-20) BUN (9-16) mg/dL Creatinine (0.5-1.4) mg/dL Estim Creat Clear Calc Estimated GFR Random Glucose (60-115) mg/dL Lactic Acid 1.5 (0.5-2.0) mmol/L Calcium (8.4-10.2) mg/dL Magnesium (1.6-2.6) mg/dL Total Bilirubin (0.0-1.0) mg/dL AST (5-37) U/L ALT (0-40) U/L Alkaline Phosphatase (39-117) U/L Troponin I High Sens (<3.5-35.0) ng/L B-Natriuretic Peptide (<100) pg/mL Total Protein (6.5-8.0) g/dL Albumin (3.5-5.0) g/dL Urine Color Yellow Urine Appearance Clear Urine pH 6.0 (5.0-9.0) Ur Specific [place] 1.010 (1.005-1.025) Urine Protein Negative (Neg-Trace) mg/dL Urine Glucose (UA) Negative (Negative) mg/dL Urine Ketones 40 (Negative) mg/dL Urine Blood Small (1+) H (Negative) Urine Nitrite Negative (Negative) Ur Leukocyte Esterase Negative (Negative) Urine RBC 3-5 H (0-2) /HPF Urine WBC 0-5 (0-5) /HPF Ur Squamous Epith Cells 0-2 (0-2) /HPF Urine Bacteria None Seen (None Seen) Hyaline Casts 0-2 (0-2) /LPF COVID-19 (DANY) (Negative) COVID-19 Clin Com Influenza Type A (KEVIN) (Negative) Influenza Type B (KEVIN) (Negative) Influenza A & B Note Independent Interpretation I performed an independent interpretation of an: Plain X-Ray (XR/XR chest 1V IMPRESSION: Oligemia of the upper lungs suggestive of emphysema. No acute pulmonary finding. ) Radiology Impression Discussion of test interpretation with radiology: I have reviewed the radiologist's reading. External Record Review External record reviewed: Inpatient record, Office record, Outpatient record, Prior outpatient labs, Prior outpatient radiology, Primary care record and Outside ED record Core Measures AMI core measures followed: Yes Measure exclusions: not indicated Critical Care Time Critical Care Time Critical Care Time: No Discharge Plan Discharge Clinical Impression: Chronic lung disease, Wheezing, Hyperbilirubinemia Patient Disposition: Still a Patient Instructions: Wheezing (ED) Additional Instructions: Take your medications as prescribed. If you were prescribed antibiotics today, it is important that you take your medication to their entirety, do not skip any doses, do not finish them early. Follow-up with your primary care provider this week. Return to the emergency department with new or worsening symptoms. Such as fev ers, chills, chest pain, shortness of breath, nausea, vomiting, dizziness, headache, vision changes, lethargy In case of emergency call 911 Your bilirubin was noted to be 2.2 today, higher than your baseline, please follow-up with your primary care provider to further evaluate this lab value. Prescriptions: No Action famotidine 40 mg tablet 40 mg PO DAILY Qty: 90 8RF Xarelto 20 mg tablet 20 mg PO QPM 30 Days Qty: 30 0RF Rx Instructions: Must call and make a cardiology appt diltiazem HCl 180 mg capsule,extended release 24hr 180 mg PO BID Qty: 90 8RF magnesium oxide 400 mg (241.3 mg magnesium) tablet 400 mg PO DAILY PRN (Reason: constipation) Qty: 90 8RF ipratropium-albuterol 0.5 mg-3 mg(2.5 mg base)/3 mL solution for nebulization 3 ml inhalation Q6H PRN (Reason: shortness of breath or wheezing) 90 Days Qty: 1080 8RF furosemide 20 mg tablet 40 mg PO DAILY PRN (Reason: edema) Qty: 180 3RF quetiapine 200 mg tablet 200 mg PO BEDTIME Qty: 30 6RF simvastatin 40 mg tablet 40 mg PO BEDTIME Qty: 90 8RF guaifenesin 100 mg/5 mL liquid 100 mg PO Q6H PRN (Reason: cough) Qty: 473 3RF zolpidem 10 mg tablet 10 mg PO BEDTIME PRN (Reason: insomnia) Qty: 30 5RF metoprolol succinate 100 mg tablet extended release 24 hr 50 mg PO TID Qty: 90 8RF fluticasone propion-salmeterol 250-50 mcg/dose blister with device 1 ea PO BID Qty: 180 0RF trazodone 100 mg tablet 100 mg PO BEDTIME Qty: 90 8RF lorazepam 0.5 mg tablet 0.5 mg PO Q6H PRN (Reason: anxiety) Qty: 90 0RF albuterol sulfate 90 mcg/actuation HFA aerosol inhaler 2 puff inhalation Q6H PRN (Reason: bronchospasm) Qty: 8.5 8RF prednisone 5 mg tablet 5 mg PO DAILY Qty: 30 0RF oxycodone 5 mg tablet 5 mg PO Q4-6H PRN (Reason: pain) 28 Days Qty: 140 0RF Narcan 4 mg/actuation spray,non-aerosol 1 spray intranasal DAILY PRN (Reason: Opiate Reversal)
[2022-09-07 16:48] LABS: MANUAL DIFF FLAG NO
[2022-09-07 16:50] LABS: Basophils Absolute Auto 0.1 X10*3/uL (0.0-0.2); Basophils Percent Auto 0.4 % (0-2); Eosinophils Absolute Auto 0.2 X10*3/uL (0.0-0.4); Eosinophils Percent Auto 1.3 % (0-4); Hematocrit 39.8 % (42.0-52.0); Imm Gran Pct Auto 0.7 % (0.0-0.4); Lymphocytes Absolute Auto 1.3 X10*3/uL (1.2-4.9); Lymphocytes Percent Auto 9.4 % (20-40); Mean Corpuscular HGB Conc 32.7 g/dl (31.0-36.0); Mean Corpuscular Hemoglobin 32.3 pg (27.0-33.0); Mean Platelet Volume 9.1 fL (9.4-12.4); Monocytes Absolute Auto 1.2 X10*3/uL (0.1-1.2); Monocytes Percent Auto 8.6 % (2-11); Neutrophils Absolute Auto 11.2 x10*3/uL (2.0-8.3); Neutrophils Percent Auto 79.6 % (45-73); Platelet Count 221 X10*3/uL (160-400); Red Blood Count 4.02 X10*6/uL (4.60-5.80); Red Cell Distribution Width 14.1 % (11.0-16.0)
[2022-09-07 17:06] LABS: COVID-19 Test Negative (Negative); IDNOW Serial# 08D9AD1C; IDNOW Serial# BCCEAD1C; Influenza A Negative (Negative); Influenza B2 Negative (Negative)
[2022-09-07] MEDS: methylPREDNISolone Sod Succ 125 MG/2 ML VIAL IVPUSH (17:07)
[2022-09-07] MEDS: Magnesium Sulfate/H2O 2 GM/50 ML PIGGYBACK IV (17:07)
[2022-09-07 17:14] LABS: Alanine Aminotransferase 16 U/L (0-40); Albumin Level 4.2 g/dL (3.5-5.0); Alkaline Phosphatase 68 U/L (39-117); Anion Gap 12 (12-20); Aspartate Amino Transferase 16 U/L (5-37); Bilirubin Total 2.2 mg/dL (0.0-1.0); Blood Urea Nitrogen 9 mg/dL (9-16); Calcium 9.4 mg/dL (8.4-10.2); Carbon Dioxide 39 mmol/L (22-29); Chloride 90 mmol/L (96-108); Creatinine Clr Calc Pharmacy 76.8; Estimated Glomerular Filt Rate > 60; Glucose Random 120 mg/dL (60-115); Magnesium 1.9 mg/dL (1.6-2.6); Potassium 3.7 mmol/L (3.3-5.1); Sodium 137 mmol/L (135-145); Total Protein 6.7 g/dL (6.5-8.0)
[2022-09-07 17:19] LABS: B Type Natriuretic Peptide 85 pg/mL (<100)
[2022-09-07 17:24] LABS: Troponin-I High Sensitivity < 3.5 ng/L (<3.5-35.0)
[2022-09-07 17:44] LABS: Venous Blood Gas Refer to POC result
[2022-09-07 17:45] LABS: VBG Base Excess 10.3 mmol/L; VBG HCO3 35 mmol/L (22-26); VBG pCO2 50 mmHg; VBG pH 7.46 (7.32-7.43); VBG pO2 51 mmHg
[2022-09-07 17:45] LABS: Lactic Acid 1.5 mmol/L (0.5-2.0)
[2022-09-07] MEDS: cefTRIAXone sodium 1 GM in 0.9 % Sodium Chloride 50 ML IV (17:50)
[2022-09-07 18:34] VITALS: BP 135/73; PULSE 92; RESP 16; O2SAT 97
[2022-09-07 18:49] VITALS: PULSE 101; RESP 16; O2SAT 96
[2022-09-07 19:41] LABS: Appearance Urine Clear; Color Urine Yellow; Glucose Urine UA Negative (Negative); Leukocyte Esterase Urine Negative (Negative); Nitrite Urine Negative (Negative); UMIC TRIGGER UACC YES; Urine Blood Small (1+) (Negative); Urine Ketones 40 mg/dL (Negative); Urine Protein Negative (Neg-Trace)
[2022-09-07 19:55] LABS: Bacteria Urine None Seen (None Seen); Hyaline Casts Urine 0-2 /LPF (0-2); Squamous Epithelial Cell Urine 0-2 /HPF (0-2); WBC Urine 0-5 /HPF (0-5)
[2022-09-07 20:00] VITALS: BP 116/73; PULSE 118; RESP 12; O2SAT 98
--- NOTE | 2022-09-07 21:45 | PHA.MEDREC ---
Pharmacy Consult ? Medication Reconciliation Pharmacy has completed the medication reconciliation. Patient states they only take diltiazem once a day. Toprol xl is TID. Patient takes three meds at bedtime only David
--- NOTE | 2022-09-07 22:02 | PM.IMHP ---
History of Present Illness Date of Service: 09/07/22 Attending physician on admission: Shirley Choi Chief Complaint: sob 62-year-old male with history of COPD with chronic hypoxic respiratory failure, paroxysmal atrial fibrillation anticoagulated with Xarelto, hyperlipidemia, hypertension presented to the ED earlier today for evaluation of shortness of breath and productive cough as well as retrosternal chest pain that started this morning. He also awoke with neck pain, back pain, and right arm pain and denies injury. The patient uses 3 L supplemental O2 at baseline but has been increasingly short of breath since this morning. There has also been subjective fevers. He states he cleaned under the bed which had a lot of dog hair several days ago, which he states often triggers COPD exacerbation. There is associated chest pain described as sharp, nonradiating, pleuritic in nature. On arrival, vital stable though did develop tachycardia to 118, with quality assurance monitor chassis reading primarily sinus rhythm though EKG on arrival showing atrial fibrillation, rate at 83. There is a leukocytosis of 14.0. Renal function baseline. Sodium 137, potassium 3.7, chloride 90, CO2 39 (baseline around 34), total bilirubin 2.2. Lactic acid 1.5. Troponin unremarkable. BNP 85. VBG ordered given hypercapnia showing pH of 7.46, pCO2 50, PO2 51, bicarb 35. CXR negative for any acute cardiopulmonary abnormality. In the ED, patient treated with IV ceftriaxone, albuterol nebulizer, 2 g IV magnesium, and 125 mg IV methylprednisolone. Review of Systems Review of Systems: General: No fevers, malaise, unintentional weight loss HEENT: No blurred vision, diplopia. No sore throat, nasal congestion, rhinorrhea, sinus pain, ear pain Cardiovascular: + pleuritic chest pain. No chest pressure, palpitations, or leg edema Respiratory: +sob, + productive cough, + wheezing GI: No abdominal pain, nausea, vomiting, diarrhea, constipation, melena, hematochezia : No dysuria, hematuria, increased urinary frequency, decreased urinary output MSK: No myalgia. + neck and low back pain Neuro: No headaches, weakness, paresthesias Skin: No rashes or lesions [facility] Medical History Allergic rhinitis Back pain Chronic respiratory failure with hypoxia COPD (chronic obstructive pulmonary disease) COVID-19 vaccine series completed Dependence on continuous supplemental oxygen Elevated cholesterol History of cardioversion HTN (hypertension) Hypoxemia On anticoagulant therapy Persistent atrial fibrillation Family History Father No problems noted. Mother No problems noted. Father No problems noted. Mother No problems noted. Surgical History H/O colonoscopy History of back surgery History of esophagogastroduodenoscopy (EGD) Social History Housing: Apartment Are you a primary intensive care ambulance paramedic to a significant other at home: No Do you presently have visiting nurse or other home services: Yes ([employer]) Alcohol intake: never Patient Tobacco Use Status: Former Tobacco user Quit Date: 2000 Tobacco use type: Cigarette Smoked in Last 30 Days: No e-Cigarette/Vaping Use: Never Used Second Hand Smoke Exposure: No Use of substances other than those prescribed or required for medical reasons: No Advance Directives: No Advance Directives Information Provided: No service: No Current occupational status: disabled Cognitive needs: No Hearing needs: No Vision needs: Yes Meds Allergies Allergy/AdvReac Type Severity Reaction Status Date / Time No Known Allergies Allergy Verified 08/21/22 08:35 Active Medications: Current Medications Pharmacy Consult (Consult Rx Perform Med Rec) 1 each MISCELLANE ONCE PRN PRN Reason: Consult order Home Medications Medication Instructions Recorded Confirmed Last Taken Type diltiazem HCl 180 mg 180 mg PO DAILY 09/07/22 09/07/22 09/07/22 History capsule,extended release 24 hr lorazepam 0.5 mg tablet 0.5 mg PO BEDTIME PRN anxiety 09/07/22 09/07/22 Unknown History magnesium oxide 400 mg (241.3 mg 400 mg PO DAILY 09/07/22 09/07/22 09/07/22 History magnesium) tablet rivaroxaban 20 mg tablet (Xarelto) 20 mg PO DAILY 09/07/22 09/07/22 09/07/22 History simvastatin 40 mg tablet 40 mg PO DAILY 09/07/22 09/07/22 09/07/22 History Physical Exam Vital Signs and Narrative: Vital Signs: Last Vital Signs Temp 98.8 F 09/07/22 16:12 Pulse 118 H 09/07/22 20:00 Resp 12 09/07/22 20:00 BP 116/73 09/07/22 20:00 Pulse Ox 98 09/07/22 20:00 O2 Del Method 09/07/22 20:00 O2 Flow Rate 4 09/07/22 18:34 Oxygen Flow Rate 5 09/07/22 16:12 BMI result Body Mass Index 19.2 Constitutional - Awake and Alert, No apparent distress Eyes - PERRLA, EOMI Neck- supple, no adenopathy. Midline and right-sided paraspinal tenderness to palpation Cardiovascular - S1S2, regular rhythm, tachycardic, No edema Respiratory - Normal lung expansion, Normal respiratory effort, No respiratory distress, CTA bilaterally Gastrointestinal - NT / ND; +BS; No rebound or guarding Extremities - no calf tenderness bilaterally, no swelling Skin - Warm/Dry Neurological - Alert & oriented x3, 5/5 strength BUE and BLE Psychological - Appropriate affect Results Labs 09/07/22 16:43 09/07/22 16:43 Labs: Laboratory Results - last 24 hr 09/07/22 09/07/22 09/07/22 16:43 16:43 16:43 MCV 99.0 H MCH 32.3 MCHC 32.7 RDW 14.1 Plt Count 221 D MPV 9.1 L Immature Gran % (Auto) 0.7 H Neut % (Auto) 79.6 H Lymph % (Auto) 9.4 L [place] % (Auto) 8.6 Eos % (Auto) 1.3 Baso % (Auto) 0.4 Lymph # (Auto) 1.3 [place] # (Auto) 1.2 Eos # (Auto) 0.2 Baso # (Auto) 0.1 Abs Immat Gran (auto) 0.10 H Absolute Neuts (auto) 11.2 H Absolute Nucleated RBC 0.000 Nucleated RBC % (auto) 0.0 VBG pH VBG pCO2 VBG pO2 VBG HCO3 VBG O2 Saturation VBG Base Excess Anion Gap 12 Estim Creat Clear Calc 76.8 Estimated GFR > 60 Random Glucose 120 H Lactic Acid Calcium 9.4 Magnesium 1.9 Total Bilirubin 2.2 H AST 16 ALT 16 Alkaline Phosphatase 68 Troponin I High Sens < 3.5 B-Natriuretic Peptide Total Protein 6.7 Albumin 4.2 Urine Color Urine Appearance Urine pH Ur Specific Ma[place] Urine Protein Urine Glucose (UA) Urine Ketones Urine Blood Urine Nitrite Ur Leukocyte Esterase Urine RBC Urine WBC Ur Squamous Epith Cells Urine Bacteria Hyaline Casts COVID-19 (DANY) COVID-19 Clin Com Influenza Type A (KEVIN) Influenza Type B (KEVIN) Influenza A & B Note 09/07/22 09/07/22 09/07/22 16:43 16:43 16:43 MCV MCH MCHC RDW Plt Count MPV Immature Gran % (Auto) Neut % (Auto) Lymph % (Auto) [place] % (Auto) Eos % (Auto) Baso % (Auto) Lymph # (Auto) [place] # (Auto) Eos # (Auto) Baso # (Auto) Abs Immat Gran (auto) Absolute Neuts (auto) Absolute Nucleated RBC Nucleated RBC % (auto) VBG pH VBG pCO2 VBG pO2 VBG HCO3 VBG O2 Saturation VBG Base Excess Anion Gap Estim Creat Clear Calc Estimated GFR Random Glucose Lactic Acid Calcium Magnesium Total Bilirubin AST ALT Alkaline Phosphatase Troponin I High Sens B-Natriuretic Peptide 85 Total Protein Albumin Urine Color Urine Appearance Urine pH Ur Specific Maury Urine Protein Urine Glucose (UA) Urine Ketones Urine Blood Urine Nitrite Ur Leukocyte Esterase Urine RBC Urine WBC Ur Squamous Epith Cells Urine Bacteria Hyaline Casts COVID-19 (DANY) Negative COVID-19 Clin Com See Note Influenza Type A (KEVIN) Negative Influenza Type B (KEVIN) Negative Influenza A & B Note See Note 09/07/22 09/07/22 09/07/22 17:29 17:33 19:32 MCV MCH MCHC RDW Plt Count MPV Immature Gran % (Auto) Neut % (Auto) Lymph % (Auto) [place] % (Auto) Eos % (Auto) Baso % (Auto) Lymph # (Auto) [place] # (Auto) Eos # (Auto) Baso # (Auto) Abs Immat Gran (auto) Absolute Neuts (auto) Absolute Nucleated RBC Nucleated RBC % (auto) VBG pH 7.46 H VBG pCO2 50 VBG pO2 51 VBG HCO3 35 H VBG O2 Saturation 82.0 VBG Base Excess 10.3 Anion Gap Estim Creat Clear Calc Estimated GFR Random Glucose Lactic Acid 1.5 Calcium Magnesium Total Bilirubin AST ALT Alkaline Phosphatase Troponin I High Sens B-Natriuretic Peptide Total Protein Albumin Urine Color Yellow Urine Appearance Clear Urine pH 6.0 Ur Specific [place] 1.010 Urine Protein Negative Urine Glucose (UA) Negative Urine Ketones 40 Urine Blood Small (1+) H Urine Nitrite Negative Ur Leukocyte Esterase Negative Urine RBC 3-5 H Urine WBC 0-5 Ur Squamous Epith Cells 0-2 Urine Bacteria None Seen Hyaline Casts 0-2 COVID-19 (DANY) COVID-19 Clin Com Influenza Type A (KEVIN) Influenza Type B (KEVIN) Influenza A & B Note Imaging Radiologist's Impressions: Impressions Chest X-Ray 09/07/22 16:22 IMPRESSION: Oligemia of the upper lungs suggestive of emphysema. No acute pulmonary finding. Assessment and Plan (1) COPD exacerbation: Status: Acute Plan 62-year-old male with history of COPD with chronic hypoxic respiratory failure, paroxysmal atrial fibrillation anticoagulated with Xarelto, hyperlipidemia, hypertension to be admitted for COPD exacerbation with severe sepsis. #Acute COPD exacerbation with severe sepsis -CXR showing emphysema, but negative for acute cardiopulmonary abnormality -given severe sepsis with leukocytosis 14.0, tachycardia to 118 (sinus rhythm noted on monitor), and hyperbilirubinemia of 2.2 with COPD exacerbation, there is concern for superimposed bacterial infection versus pneumonia. Lactic acid normal, no hypotension -chest CT ordered -IV ceftriaxone and doxycycline 100 mg b.i.d. ordered (initiated 09/07) x5 days -60 mg IV methylprednisolone b.i.d. -DuoNebs q.4h while awake -albuterol q.2h p.r.n. -continue home maintenance inhaler -admit to telemetry -follow CBC, hepatic panel, and cultures # chronic hypoxemic respiratory failure -VBG with pH 7.46, pCO2 50, PO2 51, bicarb 35 -continue 3 L supplemental O2 (baseline) to maintain oximetry around 92% #Hypochloremia -unclear etiology -no metabolic acidosis, renal function baseline, lytes normal (except CO2 39) -Follow BMP # paroxysmal atrial fibrillation -tachycardic, but appears to be in sinus rhythm on quality assurance monitor chassis though EKG did show atrial fibrillation on arrival -monitor on telemetry -continue Xarelto for anticoagulation -continue rate control medications # hypertension-reasonably controlled -continue home meds # neck pain and chronic low back pain -continue home oxycodone -lidocaine patches p.r.n. -tizanidine DVT prophylaxis-on Xarelto Full code Patient requires inpatient stay of at least 2 midnights for management of acute COPD exacerbation with severe sepsis requiring IV antibiotics, IV steroids, and close monitoring for any cardiopulmonary decompensation Time Spent With Patient Time: Total time managing care of this patient today ____ minutes. Quality Stroke Does the patient have a stroke diagnosis?: No VTE Prior VTE?: No VTE Risk Level:: Medical - moderate - high VTE Device Contraindication: Treatment Not Indicated VTE Drug Contraindication: N/A - Med Ordered
[2022-09-07] MEDS: TiZANidine HCL 4 MG TABLET PO (23:17)
[2022-09-07] MEDS: oxyCODONE HCl Immed Release 5 MG TABLET PO (23:17)
[2022-09-07] MEDS: Doxycycline Hyclate 100 MG in 0.9 % Sodium Chloride 250 ML 166.67 MG IV (23:20)
[2022-09-07] MEDS: 0.9 % Sodium Chloride Flush 3 ML SYRINGE IVFLUSH (23:20)
[2022-09-07] MEDS: methylPREDNISolone Sod Succ 125 MG/2 ML VIAL 60 MG IVPUSH (23:20)
[2022-09-08] VITALS (10 sets, daily range): BP systolic 98–122; BP diastolic 62–75; PULSE 60–97; RESP 17–20; TEMP 36.1–36.8; O2SAT 94–99; BMI 19.1
[2022-09-08 07:46] LABS: Basophils Percent Auto 0.1 % (0-2); Hematocrit 35.9 % (42.0-52.0); Imm Gran Abs Auto 0.06 X10*3/uL (0.00-0.03); Imm Gran Pct Auto 0.6 % (0.0-0.4); Lymphocytes Absolute Auto 0.3 X10*3/uL (1.2-4.9); Lymphocytes Percent Auto 3.5 % (20-40); MANUAL DIFF FLAG SCAN; Mean Corpuscular HGB Conc 33.4 g/dl (31.0-36.0); Mean Corpuscular Hemoglobin 32.6 pg (27.0-33.0); Mean Corpuscular Volume 97.6 fL (80.0-98.0); Mean Platelet Volume 9.7 fL (9.4-12.4); Monocytes Absolute Auto 0.2 X10*3/uL (0.1-1.2); Monocytes Percent Auto 2.3 % (2-11); Neutrophils Absolute Auto 9.1 x10*3/uL (2.0-8.3); Neutrophils Percent Auto 93.5 % (45-73); Platelet Count 229 X10*3/uL (160-400); Red Blood Count 3.68 X10*6/uL (4.60-5.80); Red Cell Distribution Width 13.8 % (11.0-16.0); SCAN SMEAR FLAG 1; White Blood Count 9.7 X10*3/uL (4.8-10.8)
[2022-09-08] MEDS: Metoprolol Succinate ER 50 MG TAB.ER.24H PO ×3 (07:47→20:08)
[2022-09-08] MEDS: dilTIAZem HCL CD 180 MG CAP.ER.24H PO (07:47)
[2022-09-08] MEDS: Rivaroxaban 20 MG TABLET PO (07:47)
[2022-09-08] MEDS: Famotidine 20 MG TABLET 40 MG PO (07:48)
[2022-09-08] MEDS: 0.9 % Sodium Chloride Flush 3 ML SYRINGE IVFLUSH ×2 (07:48→15:15)
[2022-09-08] MEDS: Magnesium Oxide 400 MG TABLET PO (07:48)
[2022-09-08] MEDS: Atorvastatin Calcium 20 MG TABLET PO (07:48)
[2022-09-08 07:49] LABS: Alanine Aminotransferase 14 U/L (0-40); Albumin Level 3.8 g/dL (3.5-5.0); Alkaline Phosphatase 59 U/L (39-117); Aspartate Amino Transferase 12 U/L (5-37); Bilirubin Total 1.1 mg/dL (0.0-1.0); Blood Urea Nitrogen 10 mg/dL (9-16); Calcium 9.1 mg/dL (8.4-10.2); Creatinine Clr Calc Pharmacy 85.1; Estimated Glomerular Filt Rate > 60; Glucose Random 191 mg/dL (60-115); Total Protein 6.1 g/dL (6.5-8.0)
[2022-09-08] MEDS: oxyCODONE HCl Immed Release 5 MG TABLET PO ×4 (07:49→20:09)
[2022-09-08] MEDS: TiZANidine HCL 4 MG TABLET PO ×3 (07:49→20:08)
[2022-09-08 08:17] LABS: Anion Gap 16 (12-20); Carbon Dioxide 29 mmol/L (22-29); Chloride 96 mmol/L (96-108); Potassium 3.2 mmol/L (3.3-5.1); Sodium 138 mmol/L (135-145)
[2022-09-08 08:30] LABS: SLIDE REVIEW VERIFIED
--- NOTE | 2022-09-08 08:31 | MHC.CM.PN ---
Met with Patient at bedside and addressed IMM with him, providing him with the original and placing a copy on the chart. Patient lives alone in an apartment and he recently had VNA (He thinks it was [facility] but he wants [facility]). Home with VNA and resume home O2 from [employer] is the goal;CM has initiated and will follow for dc planning. Patient has received Pfizer/CovTechnitrol vax x3 and his PCP is Dr. Olu Rawls.
--- NOTE | 2022-09-08 08:36 | MHC.CM.PN ---
Patient's Sister, who recently , was the HCP; Patient is considering naming his Nephew as his new HCP at some point.
[2022-09-08] MEDS: Furosemide 40 MG TABLET PO (11:09)
[2022-09-08] MEDS: guaiFENesin LA 600 MG TAB.ER.12H PO ×2 (11:09→20:09)
[2022-09-08] MEDS: Potassium Chloride Packet 20 MEQ PACKET 40 MEQ PO (11:09)
[2022-09-08] MEDS: methylPREDNISolone Sod Succ 125 MG/2 ML VIAL 60 MG IVPUSH ×2 (11:10→22:09)
[2022-09-08] MEDS: Doxycycline Hyclate 100 MG in 0.9 % Sodium Chloride 250 ML 166.67 MG IV ×2 (11:10→22:09)
--- NOTE | 2022-09-08 11:30 | MHC.CLN ---
NUTRITION REVEIW OF WEIGHT HX SHOWS WEIGHT LOSS X 6 MONTHS -5.2%; SIGNIFICANT WEIGHT LOSS X 1 YEAR -20.3%. DISCUSSED WEIGHT LOSS. PATIENT STATED THAT EATING LESS AND COOKING LESS OFTEN. LIKES WHOLE MILK. DOES NOT WANT ENSURE SUPPLEMENT. DINING SERVICES ALERTED THAT OK TO SEND WHOLE MILK.
--- NOTE | 2022-09-08 15:07 | P.PNIM_ITS ---
Subjective Subjective Date of Service: 09/08/22 Interval History: Feels better , denies any chest pain wean down O2 to 3 L No fever No other overnight events Review of Systems Review of Systems: Yes all other systems are reviewed and are negative Physical Exam Vital Signs: Vital Signs: Last Vital Signs Temp 98.2 F 09/08/22 11:18 Pulse 64 09/08/22 11:37 Resp 18 09/08/22 11:37 BP 122/66 09/08/22 11:18 Pulse Ox 96 09/08/22 11:18 O2 Del Method 09/08/22 11:18 O2 Flow Rate 3 09/08/22 11:18 Oxygen Flow Rate 5 09/07/22 16:12 BMI result Body Mass Index 19.1 Const: Other: Constitutional : Awake, interactive, not in distress Neck : Normal inspection, Supple Cardiovascular : RRR, no JVP, no lower extremity edema Respiratory : decreased bilateral air entry, no crackles, expiratory wheezes Gastrointestinal: soft, lax, Normal bowel sounds, Non tender Skin : Warm, Dry Neurological : Alert & oriented x3, No focal deficit Objective Data Active Medications Acetaminophen (Acetaminophen 325 Mg Tablet) 650 mg PO Q6H PRN PRN Reason: Pain, Mild (Pain Scale 1-3) Albuterol Sulfate (Albuterol Sulfate (0.083%) 2.5 Mg/3 Ml Vial.Neb) 2.5 mg INHALE Q2H PRN PRN Reason: Shortness of Breath/Wheezing Atorvastatin Calcium (Atorvastatin Calcium 20 Mg Tablet) 20 mg PO DAILY [facility] Last Admin: 09/08/22 07:48 Dose: 20 mg Documented By: BRUNILDA Albuterol Sulfate 2.5 mg/ (Ipratropium [place] 0.5 mg) 0 mg INHALE RQ4H WHILE AWAKE [facility] Last Admin: 09/08/22 11:35 Dose: 1 each Documented By: DIDI Diltiazem HCl (Diltiazem Hcl Cd 180 Mg Cap.Er.24h) 180 mg PO DAILY [facility]; Protocol Last Admin: 09/08/22 07:47 Dose: 180 mg Documented By: BRUNILDA Docusate Sodium (Docusate Sodium 100 Mg Capsule) 100 mg PO DAILY PRN PRN Reason: Constipation Famotidine (Famotidine 20 Mg Tablet) 40 mg PO DAILY [facility] Last Admin: 09/08/22 07:48 Dose: 40 mg Documented By: BRUNILDA Fluticasone/Vilanterol (Fluticasone/Vilanterol 100/25 Blst.W.Dev) 1 puff INHALE RDAILY [facility] Last Admin: 09/08/22 08:01 Dose: Not Given Documented By: DIDI Non-Admin Reason: Med Not Available Furosemide (Furosemide 40 Mg Tablet) 40 mg PO DAILY PRN; Protocol PRN Reason: edema Furosemide (Furosemide 40 Mg Tablet) 40 mg PO DAILY [facility]; Protocol Last Admin: 09/08/22 11:09 Dose: 40 mg Documented By: BRUNILDA Guaifenesin (Guaifenesin 100 Mg/5 Ml Liquid) 5 ml PO Q6H PRN PRN Reason: cough Guaifenesin (Guaifenesin La 600 Mg Tab.Er.12h) 600 mg PO BID [facility] Last Admin: 09/08/22 11:09 Dose: 600 mg Documented By: BRUNILDA Ceftriaxone Sodium 1 gm/ (Sodium Chloride) 50 mls @ 100 mls/hr IV Q24H [facility] Doxycycline Hyclate 100 mg/ (Sodium Chloride) 250 mls @ 166.67 mls/hr IV Q12H [facility] Stop: 09/12/22 12:14 Last Infusion: 09/08/22 13:04 Dose: 0 mls/hr Documented By: BRUNILDA Lorazepam (Lorazepam 0.5 Mg Tablet) 0.5 mg PO BEDTIME PRN PRN Reason: anxiety Magnesium Oxide (Magnesium Oxide 400 Mg Tablet) 400 mg PO DAILY [facility] Last Admin: 09/08/22 07:48 Dose: 400 mg Documented By: BRUNILDA Methylprednisolone Sodium Succinate (Methylprednisolone Sod Succ 125 Mg/2 Ml Vial) 60 mg IVPUSH Q12H [facility] Last Admin: 09/08/22 11:10 Dose: 60 mg Documented By: BRUNILDA Metoprolol Succinate (Metoprolol Succinate Er 50 Mg Tab.Er.24h) 50 mg PO TID [facility]; Protocol Last Admin: 09/08/22 07:47 Dose: 50 mg Documented By: BRUNILDA Ondansetron HCl (Ondansetron Hcl 4 Mg/2 Ml Vial) 4 mg IVPUSH Q8H PRN PRN Reason: Nausea and Vomiting Oxycodone HCl (Oxycodone Hcl Immed Release 5 Mg Tablet) 5 mg PO Q4H PRN PRN Reason: Pain, Severe (Pain Scale 7-10) Last Admin: 09/08/22 11:55 Dose: 5 mg Documented By: BRUNILDA Pharmacy Consult (Consult Rx Perform Med Rec) 1 each MISCELLANE ONCE PRN PRN Reason: Consult order Quetiapine Fumarate (Quetiapine Fumarate 200 Mg Tablet) 200 mg PO BEDTIME [facility] Rivaroxaban (Rivaroxaban 20 Mg Tablet) 20 mg PO DAILY@0730 [facility] Last Admin: 09/08/22 07:47 Dose: 20 mg Documented By: BRUNILDA Sodium Chloride (0.9 % Sodium Chloride Flush 3 Ml Syringe) 3 ml IVFLUSH QSHIFT [facility] Last Admin: 09/08/22 07:48 Dose: 3 ml Documented By: BRUNILDA Tizanidine HCl (Tizanidine Hcl 4 Mg Tablet) 4 mg PO TID [facility] Last Admin: 09/08/22 07:49 Dose: 4 mg Documented By: BRUNILDA Trazodone HCl (Trazodone Hcl 100 Mg Tablet) 100 mg PO BEDTIME [facility] Zolpidem Tartrate (Zolpidem Tartrate 5 Mg Tablet) 5 mg PO BEDTIME PRN PRN Reason: insomnia Labs 09/08/22 06:59 09/08/22 06:59 Labs: Laboratory Results - last 24 hr 09/07/22 09/07/22 09/07/22 16:43 16:43 16:43 MCV 99.0 H MCH 32.3 MCHC 32.7 RDW 14.1 Plt Count 221 D MPV 9.1 L Immature Gran % (Auto) 0.7 H Neut % (Auto) 79.6 H Lymph % (Auto) 9.4 L [place] % (Auto) 8.6 Eos % (Auto) 1.3 Baso % (Auto) 0.4 Lymph # (Auto) 1.3 [place] # (Auto) 1.2 Eos # (Auto) 0.2 Baso # (Auto) 0.1 Abs Immat Gran (auto) 0.10 H Absolute Neuts (auto) 11.2 H Absolute Nucleated RBC 0.000 Nucleated RBC % (auto) 0.0 Smear Tech's Comments VBG pH VBG pCO2 VBG pO2 VBG HCO3 VBG O2 Saturation VBG Base Excess Anion Gap 12 Estim Creat Clear Calc 76.8 Estimated GFR > 60 Random Glucose 120 H Lactic Acid Calcium 9.4 Magnesium 1.9 Total Bilirubin 2.2 H AST 16 ALT 16 Alkaline Phosphatase 68 Troponin I High Sens < 3.5 B-Natriuretic Peptide Total Protein 6.7 Albumin 4.2 Urine Color Urine Appearance Urine pH Ur Specific [place] Urine Protein Urine Glucose (UA) Urine Ketones Urine Blood Urine Nitrite Ur Leukocyte Esterase Urine RBC Urine WBC Ur Squamous Epith Cells Urine Bacteria Hyaline Casts COVID-19 (DANY) COVID-19 Clin Com Influenza Type A (KEVIN) Influenza Type B (KEVIN) Influenza A & B Note 09/07/22 09/07/22 09/07/22 16:43 16:43 16:43 MCV MCH MCHC RDW Plt Count MPV Immature Gran % (Auto) Neut % (Auto) Lymph % (Auto) [place] % (Auto) Eos % (Auto) Baso % (Auto) Lymph # (Auto) [place] # (Auto) Eos # (Auto) Baso # (Auto) Abs Immat Gran (auto) Absolute Neuts (auto) Absolute Nucleated RBC Nucleated RBC % (auto) Smear Tech's Comments VBG pH VBG pCO2 VBG pO2 VBG HCO3 VBG O2 Saturation VBG Base Excess Anion Gap Estim Creat Clear Calc Estimated GFR Random Glucose Lactic Acid Calcium Magnesium Total Bilirubin AST ALT Alkaline Phosphatase Troponin I High Sens B-Natriuretic Peptide 85 Total Protein Albumin Urine Color Urine Appearance Urine pH Ur Specific [place] Urine Protein Urine Glucose (UA) Urine Ketones Urine Blood Urine Nitrite Ur Leukocyte Esterase Urine RBC Urine WBC Ur Squamous Epith Cells Urine Bacteria Hyaline Casts COVID-19 (DANY) Negative COVID-19 Clin Com See Note Influenza Type A (KEVIN) Negative Influenza Type B (KEVIN) Negative Influenza A & B Note See Note 09/07/22 09/07/22 09/07/22 17:29 17:33 19:32 MCV MCH MCHC RDW Plt Count MPV Immature Gran % (Auto) Neut % (Auto) Lymph % (Auto) [place] % (Auto) Eos % (Auto) Baso % (Auto) Lymph # (Auto) [place] # (Auto) Eos # (Auto) Baso # (Auto) Abs Immat Gran (auto) Absolute Neuts (auto) Absolute Nucleated RBC Nucleated RBC % (auto) Smear Tech's Comments VBG pH 7.46 H VBG pCO2 50 VBG pO2 51 VBG HCO3 35 H VBG O2 Saturation 82.0 VBG Base Excess 10.3 Anion Gap Estim Creat Clear Calc Estimated GFR Random Glucose Lactic Acid 1.5 Calcium Magnesium Total Bilirubin AST ALT Alkaline Phosphatase Troponin I High Sens B-Natriuretic Peptide Total Protein Albumin Urine Color Yellow Urine Appearance Clear Urine pH 6.0 Ur Specific [place] 1.010 Urine Protein Negative Urine Glucose (UA) Negative Urine Ketones 40 Urine Blood Small (1+) H Urine Nitrite Negative Ur Leukocyte Esterase Negative Urine RBC 3-5 H Urine WBC 0-5 Ur Squamous Epith Cells 0-2 Urine Bacteria None Seen Hyaline Casts 0-2 COVID-19 (DANY) COVID-19 Clin Com Influenza Type A (KEVIN) Influenza Type B (KEVIN) Influenza A & B Note 09/08/22 09/08/22 06:59 06:59 MCV 97.6 MCH 32.6 MCHC 33.4 RDW 13.8 Plt Count 229 MPV 9.7 Immature Gran % (Auto) 0.6 H Neut % (Auto) 93.5 H Lymph % (Auto) 3.5 L [place] % (Auto) 2.3 Eos % (Auto) 0.0 Baso % (Auto) 0.1 Lymph # (Auto) 0.3 L [place] # (Auto) 0.2 Eos # (Auto) 0.0 Baso # (Auto) 0.0 Abs Immat Gran (auto) 0.06 H Absolute Neuts (auto) 9.1 H Absolute Nucleated RBC 0.000 Nucleated RBC % (auto) 0.0 Smear Tech's Comments VERIFIED VBG pH VBG pCO2 VBG pO2 VBG HCO3 VBG O2 Saturation VBG Base Excess Anion Gap 16 Estim Creat Clear Calc 85.1 Estimated GFR > 60 Random Glucose 191 H Lactic Acid Calcium 9.1 Magnesium Total Bilirubin 1.1 H AST 12 ALT 14 Alkaline Phosphatase 59 Troponin I High Sens B-Natriuretic Peptide Total Protein 6.1 L Albumin 3.8 Urine Color Urine Appearance Urine pH Ur Specific [place] Urine Protein Urine Glucose (UA) Urine Ketones Urine Blood Urine Nitrite Ur Leukocyte Esterase Urine RBC Urine WBC Ur Squamous Epith Cells Urine Bacteria Hyaline Casts COVID-19 (DANY) COVID-19 Clin Com Influenza Type A (KEVIN) Influenza Type B (KEVIN) Influenza A & B Note Assessment and Plan (1) COPD exacerbation: Status: Acute (2) Wheezing: Status: Acute (3) Chronic respiratory failure with hypoxia: Status: Acute Plan 62-year-old male with history of COPD with chronic hypoxic respiratory failure, paroxysmal atrial fibrillation anticoagulated with Xarelto, hyperlipidemia, hypertension to be admitted for COPD exacerbation with severe sepsis. # Acute COPD exacerbation with sepsis sepsis resolved chest CT showing large bullae and emphysema on IV ceftriaxone and doxycycline 100 mg b.i.d. (initiated 09/07) pending final blood culture 60 mg IV methylprednisolone b.i.d. DuoNebs q.4h while awake continue home maintenance inhaler # chronic hypoxemic respiratory failure continue 3 L supplemental O2 (baseline) to maintain oximetry around 92% #Hypokalemia replacement given # paroxysmal atrial fibrillation in sinus rhythm on telemetry continue Xarelto for anticoagulation continue rate control medications # hypertension-reasonably controlled continue home meds # neck pain and chronic low back pain continue home oxycodone lidocaine patches p.r.n. tizanidine DVT prophylaxis Xarelto Full code Patient requires inpatient overnight for management of acute COPD exacerbation with severe sepsis requiring IV antibiotics, IV steroids, and close monitoring for any cardiopulmonary decompensation Time Spent With Patient Time: Total time managing care of this patient today ____ minutes. Quality Stroke Does the patient have a stroke diagnosis?: No VTE Prior VTE?: No VTE Risk Level:: Medical - moderate - high VTE Device Contraindication: Treatment Not Indicated VTE Drug Contraindication: N/A - Med Ordered
[2022-09-08] MEDS: cefTRIAXone sodium 1 GM in 0.9 % Sodium Chloride 50 ML IV (18:04)
[2022-09-08] MEDS: LORazepam 0.5 MG TABLET PO (20:44)
[2022-09-08] MEDS: QUEtiapine Fumarate 200 MG TABLET PO (23:37)
[2022-09-08] MEDS: Zolpidem Tartrate 5 MG TABLET PO (23:37)
[2022-09-08] MEDS: traZODone HCL 100 MG TABLET PO (23:37)
[2022-09-09] VITALS (10 sets, daily range): BP systolic 80–107; BP diastolic 57–72; PULSE 82–100; RESP 16–20; TEMP 36–36.2; O2SAT 93–100
[2022-09-09] MEDS: TiZANidine HCL 4 MG TABLET PO ×3 (08:41→21:31)
[2022-09-09] MEDS: dilTIAZem HCL CD 180 MG CAP.ER.24H PO (08:42)
[2022-09-09] MEDS: oxyCODONE HCl Immed Release 5 MG TABLET PO ×4 (08:42→21:31)
[2022-09-09] MEDS: Atorvastatin Calcium 20 MG TABLET PO (08:42)
[2022-09-09] MEDS: Rivaroxaban 20 MG TABLET PO (08:42)
[2022-09-09] MEDS: Magnesium Oxide 400 MG TABLET PO (08:42)
[2022-09-09] MEDS: guaiFENesin LA 600 MG TAB.ER.12H PO ×2 (08:42→21:32)
[2022-09-09] MEDS: Metoprolol Succinate ER 50 MG TAB.ER.24H PO (08:42)
[2022-09-09] MEDS: 0.9 % Sodium Chloride Flush 3 ML SYRINGE IVFLUSH ×3 (08:43→21:32)
[2022-09-09] MEDS: Furosemide 40 MG TABLET PO (08:43)
[2022-09-09] MEDS: Famotidine 20 MG TABLET 40 MG PO (08:43)
[2022-09-09] MEDS: Fluticasone/Vilanterol 100/25 BLST.W.DEV 1 PUFF INHALE (11:16)
[2022-09-09] MEDS: Doxycycline Hyclate 100 MG in 0.9 % Sodium Chloride 250 ML 166.67 MG IV ×2 (11:44→23:34)
[2022-09-09] MEDS: methylPREDNISolone Sod Succ 125 MG/2 ML VIAL 60 MG IVPUSH ×2 (11:51→23:34)
--- NOTE | 2022-09-09 12:14 | HO.PM.IMPN ---
Subjective Subjective Date of Service: 09/09/22 Interval History: sob Physical Exam Vital Signs: Vital Signs: Last Vital Signs Temp 97.2 F 09/09/22 11:43 Pulse 97 09/09/22 11:43 Resp 18 09/09/22 11:43 BP 100/72 09/09/22 11:43 Pulse Ox 94 09/09/22 11:43 O2 Del Method 09/09/22 11:43 O2 Flow Rate 3 09/09/22 11:43 Oxygen Flow Rate 5 09/07/22 16:12 BMI result Body Mass Index 19.1 wheezing Objective Data Active Medications Acetaminophen (Acetaminophen 325 Mg Tablet) 650 mg PO Q6H PRN PRN Reason: Pain, Mild (Pain Scale 1-3) Albuterol Sulfate (Albuterol Sulfate (0.083%) 2.5 Mg/3 Ml Vial.Neb) 2.5 mg INHALE Q2H PRN PRN Reason: Shortness of Breath/Wheezing Atorvastatin Calcium (Atorvastatin Calcium 20 Mg Tablet) 20 mg PO DAILY [facility] Last Admin: 09/09/22 08:42 Dose: 20 mg Documented By: BELEM Albuterol Sulfate 2.5 mg/ (Ipratropium [place] 0.5 mg) 0 mg INHALE RQ4H WHILE AWAKE [facility] Last Admin: 09/09/22 11:16 Dose: 2.5 each Documented By: JASPAL Diltiazem HCl (Diltiazem Hcl Cd 180 Mg Cap.Er.24h) 180 mg PO DAILY [facility]; Protocol Last Admin: 09/09/22 08:42 Dose: 180 mg Documented By: BELEM Docusate Sodium (Docusate Sodium 100 Mg Capsule) 100 mg PO DAILY PRN PRN Reason: Constipation Famotidine (Famotidine 20 Mg Tablet) 40 mg PO DAILY [facility] Last Admin: 09/09/22 08:43 Dose: 40 mg Documented By: BELEM Fluticasone/Vilanterol (Fluticasone/Vilanterol 100/25 Blst.W.Dev) 1 puff INHALE RDAILY [facility] Last Admin: 09/09/22 11:16 Dose: 1 puff Documented By: JASPAL Furosemide (Furosemide 40 Mg Tablet) 40 mg PO DAILY [facility]; Protocol Last Admin: 09/09/22 08:43 Dose: 40 mg Documented By: BELEM Guaifenesin (Guaifenesin 100 Mg/5 Ml Liquid) 5 ml PO Q6H PRN PRN Reason: cough Guaifenesin (Guaifenesin La 600 Mg Tab.Er.12h) 600 mg PO BID [facility] Last Admin: 09/09/22 08:42 Dose: 600 mg Documented By: BELEM Ceftriaxone Sodium 1 gm/ (Sodium Chloride) 50 mls @ 100 mls/hr IV Q24H [facility] Last Infusion: 09/08/22 18:36 Dose: 0 mls/hr Documented By: BRUNILDA Doxycycline Hyclate 100 mg/ (Sodium Chloride) 250 mls @ 166.67 mls/hr IV Q12H [facility] Stop: 09/12/22 12:14 Last Admin: 09/09/22 11:44 Dose: 166.67 mls/hr Documented By: BELEM Lorazepam (Lorazepam 0.5 Mg Tablet) 0.5 mg PO BEDTIME PRN PRN Reason: anxiety Last Admin: 09/08/22 20:44 Dose: 0.5 mg Documented By: KATIE Magnesium Oxide (Magnesium Oxide 400 Mg Tablet) 400 mg PO DAILY [facility] Last Admin: 09/09/22 08:42 Dose: 400 mg Documented By: BELEM Methylprednisolone Sodium Succinate (Methylprednisolone Sod Succ 125 Mg/2 Ml Vial) 60 mg IVPUSH Q12H [facility] Last Admin: 09/09/22 11:51 Dose: 60 mg Documented By: BELEM Metoprolol Succinate (Metoprolol Succinate Er 50 Mg Tab.Er.24h) 50 mg PO TID [facility]; Protocol Last Admin: 09/09/22 08:42 Dose: 50 mg Documented By: BELEM Ondansetron HCl (Ondansetron Hcl 4 Mg/2 Ml Vial) 4 mg IVPUSH Q8H PRN PRN Reason: Nausea and Vomiting Oxycodone HCl (Oxycodone Hcl Immed Release 5 Mg Tablet) 5 mg PO Q4H PRN PRN Reason: Pain, Severe (Pain Scale 7-10) Last Admin: 09/09/22 08:42 Dose: 5 mg Documented By: BELEM Pharmacy Consult (Consult Rx Perform Med Rec) 1 each MISCELLANE ONCE PRN PRN Reason: Consult order Quetiapine Fumarate (Quetiapine Fumarate 200 Mg Tablet) 200 mg PO BEDTIME [facility] Last Admin: 09/08/22 23:37 Dose: 200 mg Documented By: KATIE Rivaroxaban (Rivaroxaban 20 Mg Tablet) 20 mg PO DAILY@0730 [facility] Last Admin: 09/09/22 08:42 Dose: 20 mg Documented By: BELEM Sodium Chloride (0.9 % Sodium Chloride Flush 3 Ml Syringe) 3 ml IVFLUSH QSHIFT [facility] Last Admin: 09/09/22 08:43 Dose: 3 ml Documented By: BELEM Tizanidine HCl (Tizanidine Hcl 4 Mg Tablet) 4 mg PO TID [facility] Last Admin: 09/09/22 08:41 Dose: 4 mg Documented By: BELEM Trazodone HCl (Trazodone Hcl 100 Mg Tablet) 100 mg PO BEDTIME [facility] Last Admin: 09/08/22 23:37 Dose: 100 mg Documented By: KATIE Zolpidem Tartrate (Zolpidem Tartrate 5 Mg Tablet) 5 mg PO BEDTIME PRN PRN Reason: insomnia Last Admin: 09/08/22 23:37 Dose: 5 mg Documented By: KATIE Labs 09/08/22 06:59 09/08/22 06:59 Microbiology Microbiology Results: Microbiology 09/07/22 18:42 Blood Culture - Preliminary Blood - Venous No growth after 24 hours. 09/07/22 17:29 Blood Culture - Preliminary Blood - Venous No growth after 24 hours. Assessment and Plan (1) COPD exacerbation: Status: Acute (2) Wheezing: Status: Acute (3) Chronic respiratory failure with hypoxia: Status: Acute Plan 62M PMH COPD with chronic hypoxic respiratory failure on 3L home o2, paroxysmal atrial fibrillation anticoagulated with Xarelto, hyperlipidemia, hypertension to be admitted for COPD exacerbation with severe sepsis. sepsis, acute on chronic hypoxic respiratory failure due to copd with acute decompensation steroids, bronchodilators, antibiotics Hypokalemia replacement given paroxysmal atrial fibrillation toprol, cardizem, xarelto hypertension-reasonably controlled toprol, cardizem neck pain and chronic low back pain continue home oxycodone lidocaine patches p.r.n. tizanidine DVT prophylaxis Xarelto Full code reason for continued hospitalization:sob Time Spent With Patient Time: Total time managing care of this patient today ____ minutes. Quality Stroke Does the patient have a stroke diagnosis?: No VTE Prior VTE?: No VTE Risk Level:: Medical - moderate - high VTE Device Contraindication: Treatment Not Indicated VTE Drug Contraindication: N/A - Med Ordered
--- NOTE | 2022-09-09 15:01 | P.CDIM_ITS ---
PROVIDER RESPONSE TEXT: To clarify, the appropriate diagnosis supported by the clinical indicators: Acute hypoxic and hypercarbic respiratory failure QUERY TEXT: PHYSICIAN'S DOCUMENTATION REQUEST Date of Query: 09/09/2022 02:49 PM EDT Patient Name: Kelechi Amado Admit Date: 09/08/2022 Dear Tai Dover, A review of the medical record indicates additional documentation may be needed. Please review below and update the documentation accordingly. Is there a diagnosis that correlates with the findings below: Clinical Indicators: Labs: Carbon dioxide level on 09/07 - 39 VBG on 09/07: pH - 7.46 pCO2 - 50 pO2 - 51 HCO3 - 35 Other indicators/risk factors: -Patient requiring supplemental oxygen via NC -Patient requiring PRN use of Albuterol inhaler and nebulizer treatments -Patient presents with sob and wheezing -Patient being treated for ARF with hypoxia Please clarify which of the following accurately represents the patient's respiratory status: Acute hypoxic and hypercarbic respiratory failure Acute hypoxic respiratory failure Other Other (explain) Clinically unable to determine (explain) Thank you, Claudia Wade MS, RN, CCRN Use of terms such as suspected, likely, concern for, or probable (associated with a specific diagnosi s that is being evaluated, monitored, or treated as if it exists) are acceptable and can be coded in the inpatient se tting, when documented at the time of discharge. Please use your independent medical judgment in providing your response. THIS QUERY IS PART OF THE PERMANENT MEDICAL RECORD
--- NOTE | 2022-09-09 15:19 | PC.NURSE ---
Patient alert and oriented, BP 92/59, pt. assymptomatic; denies dizziness/ weakness. Schedule Metoprolol MD stephany notified.
[2022-09-09] MEDS: cefTRIAXone sodium 1 GM in 0.9 % Sodium Chloride 50 ML IV (17:23)
[2022-09-09] MEDS: QUEtiapine Fumarate 200 MG TABLET PO (23:41)
[2022-09-09] MEDS: traZODone HCL 100 MG TABLET PO (23:41)
[2022-09-10] VITALS (9 sets, daily range): BP systolic 106–141; BP diastolic 71–93; PULSE 84–129; RESP 18–28; TEMP 36.1–36.9; O2SAT 95–100
[2022-09-10] MEDS: 0.9 % Sodium Chloride 500 ML IV (00:13)
--- NOTE | 2022-09-10 00:21 | PC.NURSE ---
Pt's BP's running soft. HS BP 90/57. Rechecked before HS medications, 90/60-held Metoprolol. Midnight BP 80/65 (manual) with HR 95. Dr Choi notified. 500NS ordered at 500mls/hr. Infusing. Pt aware to notify staff of any increased sob. Pt has hx CHF, on Lasix.
[2022-09-10] MEDS: oxyCODONE HCl Immed Release 5 MG TABLET PO ×5 (01:30→21:06)
--- NOTE | 2022-09-10 03:07 | PC.NURSE ---
After patient received 500mls of NS, recheck of BP 115/73 with HR 101. Pt requesting Ambien and Oxy. I discussed with patient my concern that if he received both he may drop his BP again. Pt agreed to taking his prn pain medication and will hold off on the Ambien. Pt pain free and resting in bed with eyes closed. Will continue to monitor.
[2022-09-10 06:30] LABS: Hematocrit 32.3 % (42.0-52.0); Hemoglobin 10.5 g/dl (14.0-18.0); Mean Corpuscular HGB Conc 32.5 g/dl (31.0-36.0); Mean Corpuscular Hemoglobin 32.5 pg (27.0-33.0); Mean Platelet Volume 9.7 fL (9.4-12.4); Platelet Count 247 X10*3/uL (160-400); Red Blood Count 3.23 X10*6/uL (4.60-5.80); White Blood Count 13.6 X10*3/uL (4.8-10.8)
[2022-09-10 06:58] LABS: Anion Gap 13 (12-20); Blood Urea Nitrogen 14 mg/dL (9-16); Calcium 9.3 mg/dL (8.4-10.2); Carbon Dioxide 31 mmol/L (22-29); Chloride 102 mmol/L (96-108); Creatinine Clr Calc Pharmacy 87.5; Estimated Glomerular Filt Rate > 60; Glucose Fasting 151 mg/dL (60-99); Potassium 3.9 mmol/L (3.3-5.1); Sodium 142 mmol/L (135-145)
[2022-09-10] MEDS: Fluticasone/Vilanterol 100/25 BLST.W.DEV 1 PUFF INHALE (07:55)
[2022-09-10] MEDS: guaiFENesin LA 600 MG TAB.ER.12H PO ×2 (08:05→21:06)
[2022-09-10] MEDS: Furosemide 40 MG TABLET PO (08:05)
[2022-09-10] MEDS: Atorvastatin Calcium 20 MG TABLET PO (08:05)
[2022-09-10] MEDS: Magnesium Oxide 400 MG TABLET PO (08:05)
[2022-09-10] MEDS: Metoprolol Succinate ER 50 MG TAB.ER.24H PO ×3 (08:06→21:06)
[2022-09-10] MEDS: Rivaroxaban 20 MG TABLET PO (08:06)
[2022-09-10] MEDS: Famotidine 20 MG TABLET 40 MG PO (08:06)
[2022-09-10] MEDS: 0.9 % Sodium Chloride Flush 3 ML SYRINGE IVFLUSH ×2 (08:06→17:11)
--- NOTE | 2022-09-10 08:46 | HO.PM.IMPN ---
Subjective Subjective Date of Service: 09/10/22 Interval History: sob Physical Exam Vital Signs: Vital Signs: Last Vital Signs Temp 97.4 F 09/10/22 07:27 Pulse 98 09/10/22 07:58 Resp 18 09/10/22 07:58 BP 120/73 09/10/22 07:27 Pulse Ox 97 09/10/22 07:27 O2 Del Method 09/10/22 07:27 O2 Flow Rate 3 09/10/22 07:27 Oxygen Flow Rate 5 09/07/22 16:12 BMI result Body Mass Index 19.1 wheezing Objective Data Active Medications Acetaminophen (Acetaminophen 325 Mg Tablet) 650 mg PO Q6H PRN PRN Reason: Pain, Mild (Pain Scale 1-3) Albuterol Sulfate (Albuterol Sulfate (0.083%) 2.5 Mg/3 Ml Vial.Neb) 2.5 mg INHALE Q2H PRN PRN Reason: Shortness of Breath/Wheezing Atorvastatin Calcium (Atorvastatin Calcium 20 Mg Tablet) 20 mg PO DAILY [facility] Last Admin: 09/10/22 08:05 Dose: 20 mg Documented By: BELEM Albuterol Sulfate 2.5 mg/ (Ipratropium [place] 0.5 mg) 0 mg INHALE RQ4H WHILE AWAKE [facility] Last Admin: 09/10/22 07:55 Dose: 2.5 each Documented By: SHAE Diltiazem HCl (Diltiazem Hcl Cd 180 Mg Cap.Er.24h) 180 mg PO DAILY [facility]; Protocol Last Admin: 09/10/22 08:06 Dose: Not Given Documented By: BELEM Non-Admin Reason: held per Docusate Sodium (Docusate Sodium 100 Mg Capsule) 100 mg PO DAILY PRN PRN Reason: Constipation Famotidine (Famotidine 20 Mg Tablet) 40 mg PO DAILY [facility] Last Admin: 09/10/22 08:06 Dose: 40 mg Documented By: BELEM Fluticasone/Vilanterol (Fluticasone/Vilanterol 100/25 Blst.W.Dev) 1 puff INHALE RDAILY [facility] Last Admin: 09/10/22 07:55 Dose: 1 puff Documented By: SHAE Furosemide (Furosemide 40 Mg Tablet) 40 mg PO DAILY [facility]; Protocol Last Admin: 09/10/22 08:05 Dose: 40 mg Documented By: BELEM Guaifenesin (Guaifenesin 100 Mg/5 Ml Liquid) 5 ml PO Q6H PRN PRN Reason: cough Guaifenesin (Guaifenesin La 600 Mg Tab.Er.12h) 600 mg PO BID [facility] Last Admin: 09/10/22 08:05 Dose: 600 mg Documented By: BELEM Ceftriaxone Sodium 1 gm/ (Sodium Chloride) 50 mls @ 100 mls/hr IV Q24H [facility] Last Infusion: 09/09/22 17:59 Dose: 0 mls/hr Documented By: BELEM Doxycycline Hyclate 100 mg/ (Sodium Chloride) 250 mls @ 166.67 mls/hr IV Q12H [facility] Stop: 09/12/22 12:14 Last Infusion: 09/10/22 01:05 Dose: 0 mls/hr Documented By: ANAHY Lorazepam (Lorazepam 0.5 Mg Tablet) 0.5 mg PO BEDTIME PRN PRN Reason: anxiety Last Admin: 09/08/22 20:44 Dose: 0.5 mg Documented By: KATIE Magnesium Oxide (Magnesium Oxide 400 Mg Tablet) 400 mg PO DAILY [facility] Last Admin: 09/10/22 08:05 Dose: 400 mg Documented By: BELEM Methylprednisolone Sodium Succinate (Methylprednisolone Sod Succ 125 Mg/2 Ml Vial) 60 mg IVPUSH Q12H [facility] Last Admin: 09/09/22 23:34 Dose: 60 mg Documented By: ANAHY Metoprolol Succinate (Metoprolol Succinate Er 50 Mg Tab.Er.24h) 50 mg PO TID [facility]; Protocol Last Admin: 09/10/22 08:06 Dose: 50 mg Documented By: BELEM Ondansetron HCl (Ondansetron Hcl 4 Mg/2 Ml Vial) 4 mg IVPUSH Q8H PRN PRN Reason: Nausea and Vomiting Oxycodone HCl (Oxycodone Hcl Immed Release 5 Mg Tablet) 5 mg PO Q4H PRN PRN Reason: Pain, Severe (Pain Scale 7-10) Last Admin: 09/10/22 08:05 Dose: 5 mg Documented By: BELEM Pharmacy Consult (Consult Rx Perform Med Rec) 1 each MISCELLANE ONCE PRN PRN Reason: Consult order Quetiapine Fumarate (Quetiapine Fumarate 200 Mg Tablet) 200 mg PO BEDTIME [facility] Last Admin: 09/09/22 23:41 Dose: 200 mg Documented By: ANAHY Rivaroxaban (Rivaroxaban 20 Mg Tablet) 20 mg PO DAILY@0730 [facility] Last Admin: 09/10/22 08:06 Dose: 20 mg Documented By: BELEM Sodium Chloride (0.9 % Sodium Chloride Flush 3 Ml Syringe) 3 ml IVFLUSH QSHIFT [facility] Last Admin: 09/10/22 08:06 Dose: 3 ml Documented By: BELEM Trazodone HCl (Trazodone Hcl 100 Mg Tablet) 100 mg PO BEDTIME [facility] Last Admin: 09/09/22 23:41 Dose: 100 mg Documented By: ANAHY Zolpidem Tartrate (Zolpidem Tartrate 5 Mg Tablet) 5 mg PO BEDTIME PRN PRN Reason: insomnia Last Admin: 09/08/22 23:37 Dose: 5 mg Documented By: KATIE Labs 09/10/22 06:14 09/10/22 06:14 Labs: Laboratory Results - last 24 hr 09/10/22 09/10/22 06:14 06:14 MCV 100.0 H MCH 32.5 MCHC 32.5 RDW 14.0 Plt Count 247 MPV 9.7 Absolute Nucleated RBC 0.000 Nucleated RBC % (auto) 0.0 Anion Gap 13 Estim Creat Clear Calc 87.5 Estimated GFR > 60 Fasting Glucose 151 H Calcium 9.3 Microbiology Microbiology Results: Microbiology 09/07/22 18:42 Blood Culture - Preliminary Blood - Venous No growth after 48 hours. 09/07/22 17:29 Blood Culture - Preliminary Blood - Venous No growth after 48 hours. Assessment and Plan (1) COPD exacerbation: Status: Acute (2) Wheezing: Status: Acute (3) Chronic respiratory failure with hypoxia: Status: Acute Plan 62M PMH COPD with chronic hypoxic respiratory failure on 3L home o2, paroxysmal atrial fibrillation anticoagulated with Xarelto, hyperlipidemia, hypertension to be admitted for COPD exacerbation with severe sepsis. sepsis, acute on chronic hypoxic and hypercapneic respiratory failure due to copd with acute decompensation steroids, bronchodilators, antibiotics Hypokalemia replacement given paroxysmal atrial fibrillation toprol, xarelto hodling cardizem for relative hypotension neck pain and chronic low back pain continue home oxycodone lidocaine patches p.r.n. DVT prophylaxis Xarelto Full code reason for continued hospitalization:sob Time Spent With Patient Time: Total time managing care of this patient today ____ minutes. Quality Stroke Does the patient have a stroke diagnosis?: No VTE Prior VTE?: No VTE Risk Level:: Medical - moderate - high VTE Device Contraindication: Treatment Not Indicated VTE Drug Contraindication: N/A - Med Ordered
[2022-09-10] MEDS: guaiFENesin 100 MG/5 ML LIQUID PO (11:00)
[2022-09-10] MEDS: Albuterol Sulfate (0.083%) 2.5 MG/3 ML VIAL.NEB INHALE (11:00)
[2022-09-10] MEDS: methylPREDNISolone Sod Succ 125 MG/2 ML VIAL 60 MG IVPUSH ×2 (11:08→22:59)
[2022-09-10] MEDS: Doxycycline Hyclate 100 MG in 0.9 % Sodium Chloride 250 ML 166.67 MG IV ×2 (11:57→23:00)
[2022-09-10] MEDS: Furosemide 40 MG/4 ML VIAL IVPUSH (12:09)
[2022-09-10] MEDS: Digoxin 0.5 MG/2 ML AMPUL 0.25 MG IVPUSH ×2 (12:15→17:09)
--- NOTE | 2022-09-10 12:32 | MHC.CLN ---
F/U DIET=CARDIAC. ALLOW WHOLE MILK PER PREFERENCE. DISIKES SUPPLEMENTS. APPEARS TO BE EATING WELL, 100% FOLLOW FOR INTAKE AND WEIGHT.
[2022-09-10] MEDS: cefTRIAXone sodium 1 GM in 0.9 % Sodium Chloride 50 ML IV (17:14)
[2022-09-10] MEDS: QUEtiapine Fumarate 200 MG TABLET PO (23:13)
[2022-09-10] MEDS: traZODone HCL 100 MG TABLET PO (23:13)
[2022-09-11] VITALS (9 sets, daily range): BP systolic 123–163; BP diastolic 78–98; PULSE 89–110; RESP 17–20; TEMP 36.3–37.2; O2SAT 95–99
[2022-09-11] MEDS: oxyCODONE HCl Immed Release 5 MG TABLET PO ×5 (00:42→21:50)
[2022-09-11] MEDS: LORazepam 0.5 MG TABLET PO ×2 (00:42→11:21)
[2022-09-11] MEDS: Zolpidem Tartrate 5 MG TABLET PO (00:42)
[2022-09-11] MEDS: Fluticasone/Vilanterol 100/25 BLST.W.DEV 1 PUFF INHALE (07:23)
[2022-09-11] MEDS: Famotidine 20 MG TABLET 40 MG PO (07:51)
[2022-09-11] MEDS: guaiFENesin LA 600 MG TAB.ER.12H PO ×2 (07:51→21:50)
[2022-09-11] MEDS: Furosemide 40 MG TABLET PO (07:51)
[2022-09-11] MEDS: Magnesium Oxide 400 MG TABLET PO (07:51)
[2022-09-11] MEDS: Rivaroxaban 20 MG TABLET PO (07:51)
[2022-09-11] MEDS: 0.9 % Sodium Chloride Flush 3 ML SYRINGE IVFLUSH ×3 (07:52→21:52)
[2022-09-11] MEDS: Atorvastatin Calcium 20 MG TABLET PO (07:52)
[2022-09-11] MEDS: Metoprolol Succinate ER 50 MG TAB.ER.24H PO ×3 (07:52→21:50)
--- NOTE | 2022-09-11 10:26 | MHC.CM.PN ---
[facility] will not be accepting Patient back r/t [facility] not doing subsidies. Per ROUNDS, Patient is still SOB and not yet medically cleared for dc. CM has made additional VNA referrals and will continue to follow.
[2022-09-11] MEDS: methylPREDNISolone Sod Succ 125 MG/2 ML VIAL 60 MG IVPUSH ×2 (11:04→21:51)
--- NOTE | 2022-09-11 11:25 | P.PNIM_ITS ---
Subjective Subjective Date of Service: 09/11/22 Interval History: sob Physical Exam Vital Signs: Vital Signs: Last Vital Signs Temp 97.4 F 09/11/22 07:40 Pulse 100 09/11/22 07:40 Resp 17 09/11/22 07:40 BP 126/89 09/11/22 07:40 Pulse Ox 98 09/11/22 07:40 O2 Del Method 09/11/22 07:40 O2 Flow Rate 3 09/11/22 07:40 Oxygen Flow Rate 5 09/07/22 16:12 BMI result Body Mass Index 19.1 wheezing, diminsihed Objective Data Active Medications Acetaminophen (Acetaminophen 325 Mg Tablet) 650 mg PO Q6H PRN PRN Reason: Pain, Mild (Pain Scale 1-3) Albuterol Sulfate (Albuterol Sulfate (0.083%) 2.5 Mg/3 Ml Vial.Neb) 2.5 mg INHALE Q2H PRN PRN Reason: Shortness of Breath/Wheezing Last Admin: 09/10/22 11:00 Dose: 2.5 mg Documented By: BELEM Atorvastatin Calcium (Atorvastatin Calcium 20 Mg Tablet) 20 mg PO DAILY [facility] Last Admin: 09/11/22 07:52 Dose: 20 mg Documented By: VANE Azithromycin (Azithromycin 500 Mg Tablet) 500 mg PO Q24H [facility] Albuterol Sulfate 2.5 mg/ (Ipratropium [place] 0.5 mg) 0 mg INHALE RQ4H WHILE AWAKE [facility] Last Admin: 09/11/22 07:22 Dose: 1 each Documented By: DIDI Diltiazem HCl (Diltiazem Hcl Cd 180 Mg Cap.Er.24h) 180 mg PO DAILY [facility]; Protocol Last Admin: 09/10/22 08:06 Dose: Not Given Documented By: BELEM Non-Admin Reason: held per Docusate Sodium (Docusate Sodium 100 Mg Capsule) 100 mg PO DAILY PRN PRN Reason: Constipation Doxycycline Monohydrate (Doxycycline Monohydrate 100 Mg Capsule) 100 mg PO Q12H [facility] Famotidine (Famotidine 20 Mg Tablet) 40 mg PO DAILY [facility] Last Admin: 09/11/22 07:51 Dose: 40 mg Documented By: VANE Fluticasone/Vilanterol (Fluticasone/Vilanterol 100/25 Blst.W.Dev) 1 puff INHALE RDAILY [facility] Last Admin: 09/11/22 07:23 Dose: 1 puff Documented By: DIDI Furosemide (Furosemide 40 Mg Tablet) 40 mg PO DAILY [facility]; Protocol Last Admin: 09/11/22 07:51 Dose: 40 mg Documented By: VANE Guaifenesin (Guaifenesin 100 Mg/5 Ml Liquid) 5 ml PO Q6H PRN PRN Reason: cough Last Admin: 09/10/22 11:00 Dose: 5 ml Documented By: BELEM Guaifenesin (Guaifenesin La 600 Mg Tab.Er.12h) 600 mg PO BID [facility] Last Admin: 09/11/22 07:51 Dose: 600 mg Documented By: VANE Lorazepam (Lorazepam 0.5 Mg Tablet) 0.5 mg PO BEDTIME PRN PRN Reason: anxiety Last Admin: 09/11/22 11:21 Dose: 0.5 mg Documented By: CLARISSE Magnesium Oxide (Magnesium Oxide 400 Mg Tablet) 400 mg PO DAILY [facility] Last Admin: 09/11/22 07:51 Dose: 400 mg Documented By: VANE Methylprednisolone Sodium Succinate (Methylprednisolone Sod Succ 125 Mg/2 Ml Vial) 60 mg IVPUSH Q12H [facility] Last Admin: 09/11/22 11:04 Dose: 60 mg Documented By: CLARISSE Metoprolol Succinate (Metoprolol Succinate Er 50 Mg Tab.Er.24h) 50 mg PO TID [facility]; Protocol Last Admin: 09/11/22 07:52 Dose: 50 mg Documented By: VANE Ondansetron HCl (Ondansetron Hcl 4 Mg/2 Ml Vial) 4 mg IVPUSH Q8H PRN PRN Reason: Nausea and Vomiting Oxycodone HCl (Oxycodone Hcl Immed Release 5 Mg Tablet) 5 mg PO Q4H PRN PRN Reason: Pain, Severe (Pain Scale 7-10) Last Admin: 09/11/22 07:51 Dose: 5 mg Documented By: VANE Pharmacy Consult (Consult Rx Perform Med Rec) 1 each MISCELLANE ONCE PRN PRN Reason: Consult order Quetiapine Fumarate (Quetiapine Fumarate 200 Mg Tablet) 200 mg PO BEDTIME [facility] Last Admin: 09/10/22 23:13 Dose: 200 mg Documented By: DARIA Rivaroxaban (Rivaroxaban 20 Mg Tablet) 20 mg PO DAILY@0730 [facility] Last Admin: 09/11/22 07:51 Dose: 20 mg Documented By: AVNE Sodium Chloride (0.9 % Sodium Chloride Flush 3 Ml Syringe) 3 ml IVFLUSH QSHIFT [facility] Last Admin: 09/11/22 07:52 Dose: 3 ml Documented By: VANE Trazodone HCl (Trazodone Hcl 100 Mg Tablet) 100 mg PO BEDTIME [facility] Last Admin: 09/10/22 23:13 Dose: 100 mg Documented By: DARIA Zolpidem Tartrate (Zolpidem Tartrate 5 Mg Tablet) 5 mg PO BEDTIME PRN PRN Reason: insomnia Last Admin: 09/11/22 00:42 Dose: 5 mg Documented By: DARIA Labs 09/10/22 06:14 09/10/22 06:14 Assessment and Plan (1) COPD exacerbation: Status: Acute (2) Wheezing: Status: Acute (3) Chronic respiratory failure with hypoxia: Status: Acute Plan 62M PMH COPD with chronic hypoxic respiratory failure on 3L home o2, paroxysmal atrial fibrillation anticoagulated with Xarelto, hyperlipidemia, hypertension to be admitted for COPD exacerbation with severe sepsis. sepsis, acute on chronic hypoxic and hypercapneic respiratory failure due to copd with acute decompensation with large bleb compressing right lung steroids, bronchodilators, antibiotics changed to azithro Hypokalemia replacement given paroxysmal atrial fibrillation with rvr toprol, xarelto hodling cardizem for relative hypotension neck pain and chronic low back pain continue home oxycodone lidocaine patches p.r.n. DVT prophylaxis Xarelto Full code reason for continued hospitalization:sob Time Spent With Patient Time: Total time managing care of this patient today ____ minutes. Quality Stroke Does the patient have a stroke diagnosis?: No VTE Prior VTE?: No VTE Risk Level:: Medical - moderate - high VTE Device Contraindication: Treatment Not Indicated VTE Drug Contraindication: N/A - Med Ordered
--- NOTE | 2022-09-11 12:58 | MHC.CLN ---
F/U DIET=CARDIAC. ALLOW WHOLE MILK PER PREFERENCE. DISIKES SUPPLEMENTS. APPEARS TO BE EATING WELL, 100% FOLLOW FOR INTAKE AND WEIGHT.
[2022-09-11] MEDS: Azithromycin 500 MG TABLET PO (15:03)
[2022-09-11] MEDS: Doxycycline Monohydrate 100 MG CAPSULE PO (21:50)
[2022-09-12] VITALS (9 sets, daily range): BP systolic 132–156; BP diastolic 61–86; PULSE 76–103; RESP 17–20; TEMP 36.1–36.9; O2SAT 95–99
[2022-09-12] MEDS: traZODone HCL 100 MG TABLET PO (00:31)
[2022-09-12] MEDS: Zolpidem Tartrate 5 MG TABLET PO (00:31)
[2022-09-12] MEDS: QUEtiapine Fumarate 200 MG TABLET PO (00:32)
[2022-09-12] MEDS: oxyCODONE HCl Immed Release 5 MG TABLET PO ×5 (03:35→20:32)
[2022-09-12 06:37] LABS: Hematocrit 38.5 % (42.0-52.0); Hemoglobin 12.8 g/dl (14.0-18.0); Mean Corpuscular HGB Conc 33.2 g/dl (31.0-36.0); Mean Corpuscular Hemoglobin 32.1 pg (27.0-33.0); Mean Corpuscular Volume 96.5 fL (80.0-98.0); Mean Platelet Volume 9.4 fL (9.4-12.4); Platelet Count 312 X10*3/uL (160-400); Red Blood Count 3.99 X10*6/uL (4.60-5.80); Red Cell Distribution Width 13.5 % (11.0-16.0); White Blood Count 13.3 X10*3/uL (4.8-10.8)
[2022-09-12 06:49] LABS: Anion Gap 14 (12-20); Blood Urea Nitrogen 21 mg/dL (9-16); Carbon Dioxide 33 mmol/L (22-29); Chloride 98 mmol/L (96-108); Creatinine Clr Calc Pharmacy 95.6; Estimated Glomerular Filt Rate > 60; Glucose Fasting 132 mg/dL (60-99); Potassium 4.1 mmol/L (3.3-5.1); Sodium 141 mmol/L (135-145)
[2022-09-12] MEDS: Fluticasone/Vilanterol 100/25 BLST.W.DEV 1 PUFF INHALE (07:44)
[2022-09-12] MEDS: Metoprolol Succinate ER 50 MG TAB.ER.24H PO (07:48)
[2022-09-12] MEDS: Magnesium Oxide 400 MG TABLET PO (07:48)
[2022-09-12] MEDS: Rivaroxaban 20 MG TABLET PO (07:49)
[2022-09-12] MEDS: Atorvastatin Calcium 20 MG TABLET PO (07:49)
[2022-09-12] MEDS: Doxycycline Monohydrate 100 MG CAPSULE PO ×2 (07:49→20:32)
[2022-09-12] MEDS: dilTIAZem HCL CD 180 MG CAP.ER.24H PO (07:49)
[2022-09-12] MEDS: Famotidine 20 MG TABLET 40 MG PO (07:49)
[2022-09-12] MEDS: guaiFENesin LA 600 MG TAB.ER.12H PO ×2 (07:49→20:32)
[2022-09-12] MEDS: 0.9 % Sodium Chloride Flush 3 ML SYRINGE IVFLUSH ×2 (07:50→14:40)
[2022-09-12] MEDS: Furosemide 40 MG TABLET PO (07:57)
--- NOTE | 2022-09-12 10:00 | HO.PM.IMPN ---
Subjective Subjective Date of Service: 09/12/22 Interval History: sob Physical Exam Vital Signs: Vital Signs: Last Vital Signs Temp 97.0 F 09/12/22 07:10 Pulse 88 09/12/22 07:45 Resp 17 09/12/22 07:45 BP 145/80 H 09/12/22 07:10 Pulse Ox 98 09/12/22 07:10 O2 Del Method 09/12/22 07:10 O2 Flow Rate 3 09/12/22 07:10 Oxygen Flow Rate 5 09/07/22 16:12 BMI result Body Mass Index 19.1 wheezing, diminsihed Objective Data Active Medications Acetaminophen (Acetaminophen 325 Mg Tablet) 650 mg PO Q6H PRN PRN Reason: Pain, Mild (Pain Scale 1-3) Albuterol Sulfate (Albuterol Sulfate (0.083%) 2.5 Mg/3 Ml Vial.Neb) 2.5 mg INHALE Q2H PRN PRN Reason: Shortness of Breath/Wheezing Last Admin: 09/10/22 11:00 Dose: 2.5 mg Documented By: BELEM Atorvastatin Calcium (Atorvastatin Calcium 20 Mg Tablet) 20 mg PO DAILY [facility] Last Admin: 09/12/22 07:49 Dose: 20 mg Documented By: MATIAS Azithromycin (Azithromycin 500 Mg Tablet) 500 mg PO Q24H [facility] Last Admin: 09/11/22 15:03 Dose: 500 mg Documented By: CLARISSE Albuterol Sulfate 2.5 mg/ (Ipratropium [place] 0.5 mg) 0 mg INHALE RQ4H WHILE AWAKE [facility] Last Admin: 09/12/22 07:44 Dose: 1 each Documented By: DIDI Diltiazem HCl (Diltiazem Hcl Cd 180 Mg Cap.Er.24h) 180 mg PO DAILY [facility]; Protocol Last Admin: 09/12/22 07:49 Dose: 180 mg Documented By: MATIAS Docusate Sodium (Docusate Sodium 100 Mg Capsule) 100 mg PO DAILY PRN PRN Reason: Constipation Doxycycline Monohydrate (Doxycycline Monohydrate 100 Mg Capsule) 100 mg PO Q12H [facility] Last Admin: 09/12/22 07:49 Dose: 100 mg Documented By: MATIAS Famotidine (Famotidine 20 Mg Tablet) 40 mg PO DAILY [facility] Last Admin: 09/12/22 07:49 Dose: 40 mg Documented By: MATIAS Fluticasone/Vilanterol (Fluticasone/Vilanterol 100/25 Blst.W.Dev) 1 puff INHALE RDAILY [facility] Last Admin: 09/12/22 07:44 Dose: 1 puff Documented By: DIDI Furosemide (Furosemide 40 Mg Tablet) 40 mg PO DAILY [facility]; Protocol Last Admin: 09/12/22 07:57 Dose: 40 mg Documented By: MATIAS Guaifenesin (Guaifenesin 100 Mg/5 Ml Liquid) 5 ml PO Q6H PRN PRN Reason: cough Last Admin: 09/10/22 11:00 Dose: 5 ml Documented By: BELEM Guaifenesin (Guaifenesin [place] 600 Mg Tab.Er.12h) 600 mg PO BID [facility] Last Admin: 09/12/22 07:49 Dose: 600 mg Documented By: MATIAS Lorazepam (Lorazepam 0.5 Mg Tablet) 0.5 mg PO BEDTIME PRN PRN Reason: anxiety Last Admin: 09/11/22 11:21 Dose: 0.5 mg Documented By: CLARISSE Magnesium Oxide (Magnesium Oxide 400 Mg Tablet) 400 mg PO DAILY [facility] Last Admin: 09/12/22 07:48 Dose: 400 mg Documented By: MATIAS Methylprednisolone Sodium Succinate (Methylprednisolone Sod Succ 125 Mg/2 Ml Vial) 60 mg IVPUSH Q12H [facility] Last Admin: 09/11/22 21:51 Dose: 60 mg Documented By: LARRY Metoprolol Succinate (Metoprolol Succinate Er 100 Mg Tab.Er.24h) 100 mg PO BID [facility]; Protocol Ondansetron HCl (Ondansetron Hcl 4 Mg/2 Ml Vial) 4 mg IVPUSH Q8H PRN PRN Reason: Nausea and Vomiting Oxycodone HCl (Oxycodone Hcl Immed Release 5 Mg Tablet) 5 mg PO Q4H PRN PRN Reason: Pain, Severe (Pain Scale 7-10) Last Admin: 09/12/22 07:45 Dose: 5 mg Documented By: MATIAS Pharmacy Consult (Consult Rx Perform Med Rec) 1 each MISCELLANE ONCE PRN PRN Reason: Consult order Quetiapine Fumarate (Quetiapine Fumarate 200 Mg Tablet) 200 mg PO BEDTIME [facility] Last Admin: 09/12/22 00:32 Dose: 200 mg Documented By: LARRY Rivaroxaban (Rivaroxaban 20 Mg Tablet) 20 mg PO DAILY@0730 [facility] Last Admin: 09/12/22 07:49 Dose: 20 mg Documented By: MATIAS Sodium Chloride (0.9 % Sodium Chloride Flush 3 Ml Syringe) 3 ml IVFLUSH QSHIFT [facility] Last Admin: 09/12/22 07:50 Dose: 3 ml Documented By: MATIAS Trazodone HCl (Trazodone Hcl 100 Mg Tablet) 100 mg PO BEDTIME [facility] Last Admin: 09/12/22 00:31 Dose: 100 mg Documented By: LARRY Zolpidem Tartrate (Zolpidem Tartrate 5 Mg Tablet) 5 mg PO BEDTIME PRN PRN Reason: insomnia Last Admin: 09/12/22 00:31 Dose: 5 mg Documented By: LARRY Labs 09/12/22 06:05 09/12/22 06:05 Labs: Laboratory Results - last 24 hr 09/12/22 09/12/22 06:05 06:05 MCV 96.5 MCH 32.1 MCHC 33.2 RDW 13.5 Plt Count 312 D MPV 9.4 Absolute Nucleated RBC 0.000 Nucleated RBC % (auto) 0.0 Anion Gap 14 Estim Creat Clear Calc 95.6 Estimated GFR > 60 Fasting Glucose 132 H Calcium 9.0 Assessment and Plan (1) COPD exacerbation: Status: Acute (2) Wheezing: Status: Acute (3) Chronic respiratory failure with hypoxia: Status: Acute Plan 62M PMH COPD with chronic hypoxic respiratory failure on 3L home o2, paroxysmal atrial fibrillation anticoagulated with Xarelto, hyperlipidemia, hypertension to be admitted for COPD exacerbation with severe sepsis. sepsis, acute on chronic hypoxic and hypercapneic respiratory failure due to copd with acute decompensation with large bleb compressing right lung steroids, bronchodilators, antibiotics changed to azithro Hypokalemia replacement given paroxysmal atrial fibrillation with rvr toprol increased to 100mg bid, xarelto restarting diltiazem neck pain and chronic low back pain continue home oxycodone lidocaine patches p.r.n. DVT prophylaxis Xarelto Full code reason for continued hospitalization:sob, rvr Time Spent With Patient Time: Total time managing care of this patient today ____ minutes. Quality Stroke Does the patient have a stroke diagnosis?: No VTE Prior VTE?: No VTE Risk Level:: Medical - moderate - high VTE Device Contraindication: Treatment Not Indicated VTE Drug Contraindication: N/A - Med Ordered
[2022-09-12] MEDS: methylPREDNISolone Sod Succ 125 MG/2 ML VIAL 60 MG IVPUSH (12:03)
[2022-09-12] MEDS: Azithromycin 500 MG TABLET PO (14:39)
[2022-09-12] MEDS: Metoprolol Succinate ER 100 MG TAB.ER.24H PO (20:31)
[2022-09-13] VITALS (11 sets, daily range): BP systolic 128–153; BP diastolic 78–92; PULSE 86–100; RESP 15–20; TEMP 36.1–36.4; O2SAT 94–98
[2022-09-13] MEDS: Zolpidem Tartrate 5 MG TABLET PO ×2 (00:05→23:14)
[2022-09-13] MEDS: traZODone HCL 100 MG TABLET PO ×2 (00:05→23:13)
[2022-09-13] MEDS: methylPREDNISolone Sod Succ 125 MG/2 ML VIAL 60 MG IVPUSH ×3 (00:05→23:13)
[2022-09-13] MEDS: QUEtiapine Fumarate 200 MG TABLET PO ×2 (00:05→23:13)
[2022-09-13] MEDS: 0.9 % Sodium Chloride Flush 3 ML SYRINGE IVFLUSH ×3 (00:07→13:51)
[2022-09-13] MEDS: oxyCODONE HCl Immed Release 5 MG TABLET PO ×5 (06:28→23:13)
[2022-09-13 06:35] LABS: Hematocrit 38.3 % (42.0-52.0); Hemoglobin 12.6 g/dl (14.0-18.0); Mean Corpuscular HGB Conc 32.9 g/dl (31.0-36.0); Mean Corpuscular Hemoglobin 31.7 pg (27.0-33.0); Mean Corpuscular Volume 96.2 fL (80.0-98.0); Mean Platelet Volume 9.1 fL (9.4-12.4); Platelet Count 322 X10*3/uL (160-400); Red Blood Count 3.98 X10*6/uL (4.60-5.80); Red Cell Distribution Width 13.5 % (11.0-16.0); White Blood Count 12.9 X10*3/uL (4.8-10.8)
[2022-09-13 07:13] LABS: Anion Gap 13 (12-20); Blood Urea Nitrogen 20 mg/dL (9-16); Calcium 9.1 mg/dL (8.4-10.2); Carbon Dioxide 33 mmol/L (22-29); Chloride 98 mmol/L (96-108); Creatinine Clr Calc Pharmacy 85.1; Estimated Glomerular Filt Rate > 60; Glucose Fasting 144 mg/dL (60-99); Sodium 140 mmol/L (135-145)
[2022-09-13] MEDS: Fluticasone/Vilanterol 100/25 BLST.W.DEV 1 PUFF INHALE (07:44)
[2022-09-13] MEDS: Magnesium Oxide 400 MG TABLET PO (08:27)
[2022-09-13] MEDS: Rivaroxaban 20 MG TABLET PO (08:27)
[2022-09-13] MEDS: guaiFENesin LA 600 MG TAB.ER.12H PO ×2 (08:27→20:18)
[2022-09-13] MEDS: dilTIAZem HCL CD 180 MG CAP.ER.24H PO (08:27)
[2022-09-13] MEDS: Famotidine 20 MG TABLET 40 MG PO (08:28)
[2022-09-13] MEDS: Atorvastatin Calcium 20 MG TABLET PO (08:28)
[2022-09-13] MEDS: Metoprolol Succinate ER 100 MG TAB.ER.24H PO ×2 (08:28→20:18)
[2022-09-13] MEDS: Doxycycline Monohydrate 100 MG CAPSULE PO ×2 (08:28→20:18)
[2022-09-13] MEDS: Furosemide 40 MG TABLET PO (08:28)
--- NOTE | 2022-09-13 10:15 | HO.PM.IMPN ---
Subjective Subjective Date of Service: 09/13/22 Interval History: sob Physical Exam Vital Signs: Vital Signs: Last Vital Signs Temp 97.4 F 09/13/22 07:07 Pulse 92 09/13/22 07:46 Resp 18 09/13/22 07:46 BP 139/90 H 09/13/22 07:07 Pulse Ox 97 09/13/22 07:07 O2 Del Method 09/13/22 07:07 O2 Flow Rate 3 09/13/22 07:07 Oxygen Flow Rate 5 09/07/22 16:12 BMI result Body Mass Index 19.1 diminsihed Objective Data Active Medications Acetaminophen (Acetaminophen 325 Mg Tablet) 650 mg PO Q6H PRN PRN Reason: Pain, Mild (Pain Scale 1-3) Albuterol Sulfate (Albuterol Sulfate (0.083%) 2.5 Mg/3 Ml Vial.Neb) 2.5 mg INHALE Q2H PRN PRN Reason: Shortness of Breath/Wheezing Last Admin: 09/10/22 11:00 Dose: 2.5 mg Documented By: BELEM Atorvastatin Calcium (Atorvastatin Calcium 20 Mg Tablet) 20 mg PO DAILY [facility] Last Admin: 09/13/22 08:28 Dose: 20 mg Documented By: MATIAS Azithromycin (Azithromycin 500 Mg Tablet) 500 mg PO Q24H [facility] Last Admin: 09/12/22 14:39 Dose: 500 mg Documented By: MATIAS Albuterol Sulfate 2.5 mg/ (Ipratropium [place] 0.5 mg) 0 mg INHALE RQ4H WHILE AWAKE [facility] Last Admin: 09/13/22 07:44 Dose: 1 each Documented By: DIDI Diltiazem HCl (Diltiazem Hcl Cd 180 Mg Cap.Er.24h) 180 mg PO DAILY [facility]; Protocol Last Admin: 09/13/22 08:27 Dose: 180 mg Documented By: MATIAS Docusate Sodium (Docusate Sodium 100 Mg Capsule) 100 mg PO DAILY PRN PRN Reason: Constipation Doxycycline Monohydrate (Doxycycline Monohydrate 100 Mg Capsule) 100 mg PO Q12H [facility] Last Admin: 09/13/22 08:28 Dose: 100 mg Documented By: MATIAS Famotidine (Famotidine 20 Mg Tablet) 40 mg PO DAILY [facility] Last Admin: 09/13/22 08:28 Dose: 40 mg Documented By: MATIAS Fluticasone/Vilanterol (Fluticasone/Vilanterol 100/25 Blst.W.Dev) 1 puff INHALE RDAILY [facility] Last Admin: 09/13/22 07:44 Dose: 1 puff Documented By: DIDI Furosemide (Furosemide 40 Mg Tablet) 40 mg PO DAILY [facility]; Protocol Last Admin: 09/13/22 08:28 Dose: 40 mg Documented By: MATIAS Guaifenesin (Guaifenesin 100 Mg/5 Ml Liquid) 5 ml PO Q6H PRN PRN Reason: cough Last Admin: 09/10/22 11:00 Dose: 5 ml Documented By: BELEM Guaifenesin (Guaifenesin [place] 600 Mg Tab.Er.12h) 600 mg PO BID [facility] Last Admin: 09/13/22 08:27 Dose: 600 mg Documented By: MATIAS Lorazepam (Lorazepam 0.5 Mg Tablet) 0.5 mg PO BEDTIME PRN PRN Reason: anxiety/restlessness Magnesium Oxide (Magnesium Oxide 400 Mg Tablet) 400 mg PO DAILY [facility] Last Admin: 09/13/22 08:27 Dose: 400 mg Documented By: MATIAS Methylprednisolone Sodium Succinate (Methylprednisolone Sod Succ 125 Mg/2 Ml Vial) 60 mg IVPUSH Q12H [facility] Last Admin: 09/13/22 00:05 Dose: 60 mg Documented By: LARRY Metoprolol Succinate (Metoprolol Succinate Er 100 Mg Tab.Er.24h) 100 mg PO BID [facility]; Protocol Last Admin: 09/13/22 08:28 Dose: 100 mg Documented By: MATIAS Ondansetron HCl (Ondansetron Hcl 4 Mg/2 Ml Vial) 4 mg IVPUSH Q8H PRN PRN Reason: Nausea and Vomiting Oxycodone HCl (Oxycodone Hcl Immed Release 5 Mg Tablet) 5 mg PO Q4H PRN PRN Reason: Pain, Severe (Pain Scale 7-10) Last Admin: 09/13/22 06:28 Dose: 5 mg Documented By: LARRY Pharmacy Consult (Consult Rx Perform Med Rec) 1 each MISCELLANE ONCE PRN PRN Reason: Consult order Quetiapine Fumarate (Quetiapine Fumarate 200 Mg Tablet) 200 mg PO BEDTIME [facility] Last Admin: 09/13/22 00:05 Dose: 200 mg Documented By: LARRY Rivaroxaban (Rivaroxaban 20 Mg Tablet) 20 mg PO DAILY@0730 [facility] Last Admin: 09/13/22 08:27 Dose: 20 mg Documented By: MATIAS Sodium Chloride (0.9 % Sodium Chloride Flush 3 Ml Syringe) 3 ml IVFLUSH QSHIFT [facility] Last Admin: 09/13/22 08:28 Dose: 3 ml Documented By: MATIAS Trazodone HCl (Trazodone Hcl 100 Mg Tablet) 100 mg PO BEDTIME [facility] Last Admin: 09/13/22 00:05 Dose: 100 mg Documented By: LARRY Zolpidem Tartrate (Zolpidem Tartrate 5 Mg Tablet) 5 mg PO BEDTIME PRN PRN Reason: Insomnia Last Admin: 09/13/22 00:05 Dose: 5 mg Documented By: LARRY Labs 09/13/22 06:07 09/13/22 06:07 Labs: Laboratory Results - last 24 hr 09/13/22 09/13/22 06:07 06:07 MCV 96.2 MCH 31.7 MCHC 32.9 RDW 13.5 Plt Count 322 MPV 9.1 L Absolute Nucleated RBC 0.000 Nucleated RBC % (auto) 0.0 Anion Gap 13 Estim Creat Clear Calc 85.1 Estimated GFR > 60 Fasting Glucose 144 H Calcium 9.1 Microbiology Microbiology Results: Microbiology 09/07/22 18:42 Blood Culture - Final Blood - Venous No growth after 5 days. 09/07/22 17:29 Blood Culture - Final Blood - Venous No growth after 5 days. Assessment and Plan (1) COPD exacerbation: Status: Acute (2) Wheezing: Status: Acute (3) Chronic respiratory failure with hypoxia: Status: Acute Plan 62M PMH COPD with chronic hypoxic respiratory failure on 3L home o2, paroxysmal atrial fibrillation anticoagulated with Xarelto, hyperlipidemia, hypertension to be admitted for COPD exacerbation with severe sepsis. sepsis, acute on chronic hypoxic and hypercapneic respiratory failure due to copd with acute decompensation with large bleb compressing right lung steroids, bronchodilators, antibiotics changed to azithro Hypokalemia replacement given paroxysmal atrial fibrillation with rvr toprol increased to 100mg bid, xarelto restarted diltiazem heart rate improved neck pain and chronic low back pain continue home oxycodone lidocaine patches p.r.n. DVT prophylaxis Xarelto Full code reason for continued hospitalization:sob Time Spent With Patient Time: Total time managing care of this patient today ____ minutes. Quality Stroke Does the patient have a stroke diagnosis?: No VTE Prior VTE?: No VTE Risk Level:: Medical - moderate - high VTE Device Contraindication: Treatment Not Indicated VTE Drug Contraindication: N/A - Med Ordered
[2022-09-13] MEDS: Azithromycin 500 MG TABLET PO (13:51)
[2022-09-14] MEDS: oxyCODONE HCl Immed Release 5 MG TABLET PO ×3 (05:59→14:50)
[2022-09-14 07:38] LABS: Glucose, Whole Blood 144 mg/dL (60-115)
[2022-09-14 08:00] VITALS: BP 133/84; PULSE 83; RESP 20; TEMP 36.1; O2SAT 98
--- NOTE | 2022-09-14 08:21 | P.CDIM_ITS ---
PROVIDER RESPONSE TEXT: To clarify, the appropriate diagnosis supported by the clinical indicators: No nutritional deficiency QUERY TEXT: PHYSICIAN'S DOCUMENTATION REQUEST Date of Query: 09/14/2022 08:09 AM EDT Patient Name: Kelechi Amado Admit Date: 09/08/2022 Dear Tai Dover, A review of the medical record indicates additional documentation may be needed. Please review below and update the documentation accordingly. Is there a diagnosis that correlates with the findings below: Clinical indicators: BMI - 19.1 Height - 5ft 9in Weight - 58.9kg Per nutrition consult: HX SHOWS WEIGHT LOSS X 6 MONTHS -5.2%; SIGNIFICANT WEIGHT LOSS X 1 YEAR -20.3%. DISCUSSED WEIGHT LOSS. PATIENT STATED THAT EATING LESS AND COOKING LESS OFTEN. To ensure the quality of the medical record, based on the above information and the recognized standa rd for (specify malnutrition severity), could you please verify which of the following diagnoses best reflects the pa tient's nutritional status. Malnutrition is/was a likely/suspected clinical diagnosis Please specify - mild, moderate, severe No nutritional deficiency Other Other (explain) Clinically unable to determine (explain) Thank you, Claudia Wade, MS, RN, CCRN Use of terms such as suspected, likely, concern for, or probable (associated with a specific diagnosi s that is being evaluated, monitored, or treated as if it exists) are acceptable and can be coded in the inpatient se tting, when documented at the time of discharge. Please use your independent medical judgment in providing your response. THIS QUERY IS PART OF THE PERMANENT MEDICAL RECORD
[2022-09-14] MEDS: Fluticasone/Vilanterol 100/25 BLST.W.DEV 1 PUFF INHALE (08:28)
[2022-09-14] MEDS: Rivaroxaban 20 MG TABLET PO (09:04)
[2022-09-14] MEDS: Magnesium Oxide 400 MG TABLET PO (09:05)
[2022-09-14] MEDS: Metoprolol Succinate ER 100 MG TAB.ER.24H PO (09:05)
[2022-09-14] MEDS: Furosemide 40 MG TABLET PO (09:05)
[2022-09-14] MEDS: Famotidine 20 MG TABLET 40 MG PO (09:05)
[2022-09-14] MEDS: dilTIAZem HCL CD 180 MG CAP.ER.24H PO (09:06)
[2022-09-14] MEDS: Atorvastatin Calcium 20 MG TABLET PO (09:06)
[2022-09-14] MEDS: guaiFENesin LA 600 MG TAB.ER.12H PO (09:06)
[2022-09-14] MEDS: 0.9 % Sodium Chloride Flush 3 ML SYRINGE IVFLUSH (09:06)
[2022-09-14] MEDS: Doxycycline Monohydrate 100 MG CAPSULE PO (09:06)
[2022-09-14] MEDS: methylPREDNISolone Sod Succ 125 MG/2 ML VIAL 60 MG IVPUSH (10:28)
--- NOTE | 2022-09-14 10:41 | P.DS_ITS ---
DS: Providers Provider Date of Service: 09/14/22 Date of admission: 09/07/22 22:30 Primary care physician: Olu Rawls MD DS: Diagnosis Discharge Diagnosis (1) COPD exacerbation: Status: Acute (2) Wheezing: Status: Acute (3) Chronic respiratory failure with hypoxia: Status: Acute DS: Summary Hospital Course Hospital Course: from initial hpi: 62-year-old male with history of COPD with chronic hypoxic respiratory failure, paroxysmal atrial fibrillation anticoagulated with Xarelto, hyperlipidemia, hypertension presented to the ED earlier today for evaluation of shortness of breath and productive cough as well as retrosternal chest pain that started this morning. He also awoke with neck pain, back pain, and right arm pain and denies injury.? The patient uses 3 L supplemental O2 at baseline but has been increasingly short of breath since this morning. There has also been subjective fevers. He states he cleaned under the bed which had a lot of dog hair several days ago, which he states often triggers COPD exacerbation. There is associated chest pain described as sharp, nonradiating, pleuritic in nature.? On arrival, vital stable though did develop tachycardia to 118, with monitoring manager reading primarily sinus rhythm though? EKG on arrival showing atrial fibrillation, rate at 83.? There is a leukocytosis of 14.0.? Renal function baseline.? Sodium 137, potassium 3.7, chloride 90, CO2 39 (baseline around 34), total bilirubin 2.2.? Lactic acid 1.5.? Troponin unremarkable.? BNP 85.? VBG ordered given hypercapnia showing pH of 7.46, pCO2 50, PO2 51, bicarb 35.? CXR negative for any acute cardiopulmonary abnormality.? In the ED, patient treated with IV ceftriaxone, albuterol nebulizer, 2 g IV magnesium, and 125 mg IV methylprednisolone. hospital course: Patient was admitted for sepsis and acute on chronic hypoxic and hypercapnic respiratory failure due to COPD with acute decompensation with large bleb compressing right lung. He was treated with steroids, bronchodilators, antibiotics and was slowly weaned down to his 3 L home O2 and shortness of breath improved. He will be discharged home and follow up with Pulmonary for further management of his COPD and large bleb. patient had hypokalemia which was replaced. For paroxysmal atrial fibrillation with rapid ventricle response he was continued on Toprol 100 mg b.i.d. and Xarelto and continue on diltiazem and heart rate improved. Patient is feeling better will be discharged home with [facility]NA. Time Spent with Patient Time attestation: Total time managing care of this patient today ____ minutes. Discharge coordination time: Greater than 30 minutes Quality: Safe Use of Opioids Does Pt have an Active Cancer Diagnosis on the Problem List?: No Quality: Stroke Does the patient have a stroke diagnosis?: No Physical Exam Vital Signs: Vital Signs: Last Vital Signs Temp 97.0 F 09/14/22 08:00 Pulse 83 09/14/22 08:00 Resp 20 09/14/22 08:00 BP 133/84 09/14/22 08:00 Pulse Ox 98 09/14/22 08:00 O2 Del Method 09/14/22 08:00 O2 Flow Rate 2 09/14/22 08:00 Oxygen Flow Rate 5 09/07/22 16:12 BMI result Body Mass Index 19.1 diminsihed DS: Data Data Completed and Pending Labs on day of discharge: Laboratory Results - last 24 hr 09/14/22 07:34 POC Glucose 144 H Discharge Plan Discharge Anticipated Discharge Date/Time: 09/14/22 10:38 Patient Disposition: Home Health Service Discharge Diagnosis: copd Referrals: [facility] [Outside] - 1 Week Olu Rawls MD [Primary Care Provider] - 1 Week Discharge Medications: Continued famotidine 40 mg tablet 40 mg PO DAILY Qty: 90 8RF ipratropium-albuterol 0.5 mg-3 mg(2.5 mg base)/3 mL solution for nebulization 3 ml inhalation Q6H PRN (Reason: shortness of breath or wheezing) 90 Days Qty: 1080 8RF furosemide 20 mg tablet 40 mg PO DAILY PRN (Reason: edema) Qty: 180 3RF quetiapine 200 mg tablet 200 mg PO BEDTIME Qty: 30 6RF guaifenesin 100 mg/5 mL liquid 100 mg PO Q6H PRN (Reason: cough) Qty: 473 3RF zolpidem 10 mg tablet 10 mg PO BEDTIME PRN (Reason: insomnia) Qty: 30 5RF metoprolol succinate 100 mg tablet extended release 24 hr 50 mg PO TID Qty: 90 8RF fluticasone propion-salmeterol 250-50 mcg/dose blister with device 1 ea PO BID Qty: 180 0RF trazodone 100 mg tablet 100 mg PO BEDTIME Qty: 90 8RF albuterol sulfate 90 mcg/actuation HFA aerosol inhaler 2 puff inhalation Q6H PRN (Reason: bronchospasm) Qty: 8.5 8RF diltiazem HCl 180 mg capsule,extended release 24hr 180 mg PO DAILY simvastatin 40 mg tablet 40 mg PO DAILY magnesium oxide 400 mg (241.3 mg magnesium) tablet 400 mg PO DAILY lorazepam 0.5 mg tablet 0.5 mg PO BEDTIME PRN (Reason: anxiety) Xarelto 20 mg tablet 20 mg PO DAILY Rx Instructions: Must call and make a cardiology appt oxycodone 5 mg tablet 5 mg PO Q4-6H PRN (Reason: pain) 28 Days Qty: 140 0RF Discharge Orders: Discharge Order (Routine); Ordered 09/14/22 Ordered By: Tai Dover Diet: Advance to usual diet Activity on Discharge: As tolerated Stand Alone Forms: Patient Portal Discharge page Activity Restrictions/Additional Instructions: Take your medications as prescribed. If you were prescribed antibiotics today, it is important that you take your medication to their entirety, do not skip any doses, do not finish them early. Follow-up with your primary care provider this week. Return to the emergency department with new or worsening symptoms. Such as fevers, chills, chest pain, shortness of breath, nausea, vomiting, dizziness, headache, vision changes, lethargy In case of emergency call 911 Your bilirubin was noted to be 2.2 today, higher than your baseline, please follow-up with your primary care provider to further evaluate this lab value. Care Plan Goals: recovery Health Concerns: severe copd Plan of Treatment: follow up with pulm Assessment: see above
--- NOTE | 2022-09-14 11:34 | MHC.CM.PN ---
Patient has been medically cleared for dc to home today with [facility]. A referral was made to [facility], who has accepted Patient, and they are aware of today's dc. Patient is aware of and in agreement with the dc plan. Patient will dc to home today at 2:30 PM via [facility]. CM met with Patient at bedside and addressed the IMM with him (original was given to Patient and a copy has been placed on the chart).
--- NOTE | 2022-09-14 11:35 | W.MHC.F2F ---
Service Date Service Date: 09/14/22 Encounter Date of encounter: 09/14/22 Reasons for Services Signs and symptoms assessed: <del>sob</del> Reason for mcfp: medication management, medication treatment and teach disease management Homebound: Leaving the home is medically contraindicated at this time without the asist of a device and/or another person due th the listed conditions above and below. Reason homebound: shortness of breath with minimal effort Certification: Based on the above findings, I certify that this patient is confined to the home and needs intermittent mcfp care, physical therapy and/or speech therapy, or continues to need occupational therapy. The patient is under my care, and I have initiated the establishment of the plan of care. The patient will be followed by a physician who will periodically review the plan of care. Time Spent With Patient Time: Total time managing care of this patient today ____ minutes.
[2022-09-14 11:54] VITALS: BP 122/72; PULSE 88; RESP 20; TEMP 36.7; O2SAT 96
[2022-09-14] MEDS: Azithromycin 500 MG TABLET PO (14:50)
== END 2022-09-14 15:25 | disposition home health service (06) | DRG 192 ==
LOC: HO.ED 17:25 → HO.EDOVER 22:40 → HO.IMC 23:08
PROVIDERS: Physician Assistant; Admitting Provider Physician Assistant; Emergency Provider Emergency Medicine Emergency Medical Services; PCP Internal Medicine; Visit Provider Internal Medicine
DX: J43.9 Emphysema, unspecified (principal); E87.6 Hypokalemia; M54.2 Cervicalgia; M54.59 Other low back pain; I10 Essential (primary) hypertension; E87.8 Other disorders of electrolyte and fluid balance, not elsewhere classified; G89.29 Other chronic pain; Z20.822 Contact with and (suspected) exposure to COVID-19; Z99.81 Dependence on supplemental oxygen; Z87.891 Personal history of nicotine dependence; Z79.01 Long term (current) use of anticoagulants; Z79.899 Other long term (current) drug therapy
CPT/HCPCS: 36415; 71045; 71250; 80048; 80053; 81001; 82803; 82947; 83605; 83735; 83880; 84484; 85025; 85027; 87040; 87502; 87635; 93005; 94640; 99285; J0696; J1160; J1940; J2930; J3475

== ENCOUNTER 2022-12-03 22:02 | Inpatient (IN) | payer MEDICARE, SELFPAY ==
--- NOTE | ~2022-12-03 | XR_ITS ---
EXAMINATION: XR CHEST CLINICAL INFORMATION: Shortness of breath COMPARISON: Previous chest x-ray and chest CT August 2022 TECHNIQUE: Frontal view of the chest was obtained. FINDINGS: The cardiac and mediastinal contours are stable. The lung volumes are low. There is severe emphysematous change at the right right lung. There are crowded bronchovascular markings and the left lung and question mild bronchial wall thickening. No definite pneumonia. No pleural effusion or pneumothorax. Rods in the mid and lower thoracic spine. XR/XR chest 1V IMPRESSION: Low lung volumes and severe emphysematous change. Question left lung bronchial wall thickening versus low lung volumes.
--- NOTE | ~2022-12-03 | XR_ITS ---
EXAMINATION: XR CHEST CLINICAL INFORMATION: Shortness of breath COMPARISON: Previous chest x-ray most recent 12/03/2022 TECHNIQUE: 2 views of the chest were obtained. FINDINGS: The cardiac and mediastinal contours are stable. The lungs are well inflated. There is severe emphysema in the right lung. There are increased coarse lung markings in the left lung similar to previous exams. This may represent crowding of the left lung secondary to severe emphysematous changes on the right. No definite pneumonia. No pleural effusion or pneumothorax. Old lower thoracic compression fractures and rods in the lower thoracic and upper lumbar spine. XR/XR chest 2V IMPRESSION: Severe emphysematous changes of the right lung. Increased coarse lung markings on the left similar to previous exams. No evidence for acute disease in the chest.
--- NOTE | 2022-12-03 22:14 | ECG_ITS ---
Test Reason : SOB Blood Pressure : / mmHG Vent. Rate : 073 BPM Atrial Rate : 000 BPM P-R Int : 000 ms QRS Dur : 092 ms QT Int : 404 ms P-R-T Axes : 000 215 079 degrees QTc Int : 445 ms Atrial fibrillation Right superior axis deviation Pulmonary disease pattern Incomplete right bundle branch block Right ventricular hypertrophy with repolarization abnormality Septal infarct (cited on or before 07-SEP-2022) Abnormal ECG When compared with ECG of 07-SEP-2022 16:30, Nonspecific T wave abnormality now evident in Lateral leads Referred By: Porfirio Chase Electronically Signed By:Rodri Cox
[2022-12-03 22:17] VITALS: BP 102/72; PULSE 77; RESP 14; TEMP 37.2; O2SAT 92; BMI 21.2
--- NOTE | 2022-12-03 22:19 | ED.SOB ---
HPI - SOB/Dyspnea General Chief Complaint: Upper Respiratory Symptoms Stated Complaint: SOB Time Seen by Provider: 12/03/22 22:09 Source: patient and EMS Mode of arrival: EMS Limitations: no limitations History of Present Illness HPI Narrative: Patient 62 years old with history of chronic hypoxic respiratory failure, COPD on 3 LMN/24 hrs of oxygen and chronic prednisone dependent, paroxysmal AFib on Xarelto comes in for increased shortness of breath and cough for last few days patient was saturating high 80s on 3 L when EMS arrived saturating 94% on 5 L on arrival. Patient coughing with mucopurulent expectoration no fever no chills no leg swelling no chest pain or palpitation patient using nebulizing treatment at home without much response patient been admitted to the hospital with same in the past Related Data Home Medications Medication Instructions Recorded Confirmed lorazepam 0.5 mg tablet 0.5 mg PO BEDTIME PRN anxiety 09/07/22 11/06/22 magnesium oxide 400 mg (241.3 mg 400 mg PO DAILY 09/07/22 11/06/22 magnesium) tablet simvastatin 40 mg tablet 40 mg PO DAILY 09/07/22 11/06/22 Previous Rx's Medication Instructions Recorded ipratropium 0.5 mg-albuterol 3 mg 3 ml inhalation Q6H PRN shortness 02/09/22 (2.5 mg base)/3 mL nebulization of breath or wheezing 90 days soln #1,080 mL quetiapine 200 mg tablet 200 mg PO BEDTIME #30 tabs 05/06/22 zolpidem 10 mg tablet 10 mg PO BEDTIME PRN insomnia #30 06/10/22 tabs metoprolol succinate 100 mg 50 mg PO TID #90 tabs 06/13/22 tablet,extended release 24 hr trazodone 100 mg tablet 100 mg PO BEDTIME #90 tabs 08/10/22 albuterol sulfate 90 mcg/actuation 2 puff inhalation Q6H PRN 09/03/22 aerosol inhaler bronchospasm #8.5 grams famotidine 40 mg tablet 40 mg PO DAILY #90 tabs 09/27/22 furosemide 20 mg tablet 40 mg PO DAILY PRN edema #180 tabs 09/27/22 compr.stocking,knee,long,x-lrg #2 ea 09/29/22 fluticasone 250 mcg-salmeterol 50 1 ea PO BID #180 ea 10/13/22 mcg/dose blistr irvingdr for inhalation (Wixela Inhub) diltiazem HCl 180 mg 180 mg PO DAILY #120 caps 11/06/22 capsule,extended release 24 hr oxycodone 5 mg tablet 5 mg PO Q4-6H PRN pain 28 days 11/06/22 #140 tabs rivaroxaban 20 mg tablet (Xarelto) 20 mg PO DAILY #90 tabs 11/06/22 prednisone 5 mg tablet 5 mg PO DAILY #30 tabs 11/16/22 Allergies Allergy/AdvReac Type Severity Reaction Status Date / Time No Known Allergies Allergy Verified 11/06/22 09:46 Review of Systems Review of Systems: Yes all other systems are reviewed and are negative [facility] Past Medical History Medical History Allergic rhinitis Back pain Chronic respiratory failure with hypoxia COPD (chronic obstructive pulmonary disease) COVID-19 vaccine series completed Dependence on continuous supplemental oxygen Elevated cholesterol History of cardioversion HTN (hypertension) Hypoxemia On anticoagulant therapy Persistent atrial fibrillation Surgical History H/O colonoscopy History of back surgery History of esophagogastroduodenoscopy (EGD) Family History Family History Father No problems noted. Mother No problems noted. Father No problems noted. Mother No problems noted. Social History Social History Household Members: None Housing: Apartment Are you a primary direct care specialist to a significant other at home: No Do you presently have visiting nurse or other home services: No Alcohol intake: never Patient Tobacco Use Status: Former Tobacco user Quit Date: 2000 Tobacco use type: Cigarette Smoked in Last 30 Days: No e-Cigarette/Vaping Use: Never Used Second Hand Smoke Exposure: No Use of substances other than those prescribed or required for medical reasons: No Advance Directives: No Advance Directives Information Provided: Yes service: No Current occupational status: disabled Cognitive needs: No Hearing needs: No Vision needs: Yes Physical Exam Vital Signs: Vital Signs: Last Vital Signs Temp 98.3 F 12/04/22 06:42 Pulse 71 12/04/22 06:42 Resp 18 12/04/22 06:42 BP 96/53 L 12/04/22 06:42 Pulse Ox 96 12/04/22 06:42 O2 Del Method Nasal Cannula 12/04/22 06:42 O2 Flow Rate 5.0 12/04/22 06:42 Oxygen Flow Rate 5 12/03/22 22:57 BMI result Body Mass Index 21.2 Appearance: Alert. Oriented X3. Moderate respiratory distress thin build Eyes: PERRLA, No Nystagmus ENT: Pharynx normal. Oral Mucosa moist Neck: Normal inspection. Neck supple. CVS: Irregularly irregular heart rate no murmur. Pulses normal. Respiratory: Moderate respiratory distress. Equal air entry bilateral, bilateral wheezing and conducted sounds Abdomen: Soft and nontender. Bowel sounds are present, no mass palpable, no CVA tenderness Skin: Skin warm and dry. Normal skin color. Normal skin turgor. Extremities: No lower extremity edema. No calf tenderness Neuro: Oriented X 3. No motor deficit. No sensory deficit.No cerebellar signs , cranial nerves II-XII intact Medications Administered Generic Name Dose Route Start Last Admin Trade Name Freq PRN Reason Stop Dose Admin Acetaminophen 650 mg 12/03/22 23:26 12/04/22 03:00 Acetaminophen 325 Mg Tablet PO 650 mg Q6H PRN Administration Pain, Mild (Pain Scale 1-3) Azithromycin 500 mg/ Sodium 250 mls @ 125 mls/hr 12/04/22 00:15 12/04/22 04:53 Chloride IV Infused Q24H SARAY Infusion Methylprednisolone Sodium Succinate 40 mg 12/03/22 23:45 12/04/22 02:53 Methylprednisolone Sod Succ 40 Mg/Ml Vial IVPUSH 40 mg Q12H SARAY Administration Sodium Chloride 3 ml 12/04/22 00:00 12/04/22 03:01 0.9 % Sodium Chloride Flush 3 Ml Syringe IVFLUSH 3 ml QSHIFT SARAY Administration Discontinued Medications Generic Name Dose Route Start Last Admin Trade Name Freq PRN Reason Stop Dose Admin Albuterol Sulfate 2.5 mg/ 0 mg 12/03/22 22:15 12/03/22 22:23 Albuterol/Ipratropium 3 ml INHALE 12/03/22 22:16 1 each ONCE ONE Administration Sodium Chloride 1,000 mls @ 999 mls/hr 12/03/22 22:15 12/03/22 23:17 Ns IV 12/03/22 23:15 Infused .Q1H1M ONE Infusion Ceftriaxone Sodium 1 gm/ 50 mls @ 100 mls/hr 12/03/22 22:15 12/03/22 23:17 Sodium Chloride IV 12/03/22 22:44 Infused ONCE ONE Infusion Oxycodone HCl 5 mg 12/04/22 03:19 12/04/22 03:28 Oxycodone Hcl Immed Release 5 Mg Tablet PO 12/04/22 03:20 5 mg ONCE ONE Administration Medical Decision Making Medical Decision Making [facility] Narrative: Patient on chronic hypoxic respiratory failure due to COPD oxygen and steroid-dependent came here for worsening of hypoxia saturating 88% on 3 L improved on 5 L chest x-ray negative for infiltrate started on IV steroids IV dose of Rocephin given patient is not septic has chronic lung disease has reactive leukocytosis secondary to prednisone use. Will admit patient for further management Consult Healthcare Provider Management of the patient was discussed with: Hospitalist Lab Data [facility] Lab Attestation statement: I reviewed the patient's lab results. 12/03/22 22:28 12/04/22 05:38 Labs: Lab Results 12/03/22 12/03/22 12/03/22 Range/Units 22:28 22:28 22:28 WBC 26.5 H (4.8-10.8) X10*3/uL RBC 4.34 L (4.60-5.80) X10*6/uL Hgb 14.1 (14.0-18.0) g/dl Hct 43.3 (42.0-52.0) % MCV 99.8 H (80.0-98.0) fL MCH 32.5 (27.0-33.0) pg MCHC 32.6 (31.0-36.0) g/dl RDW 13.4 (11.0-16.0) % Plt Count 271 (160-400) X10*3/uL MPV 9.3 L (9.4-12.4) fL Immature Gran % (Auto) 0.7 H (0.0-0.4) % Neut % (Auto) 82.7 H (45-73) % Lymph % (Auto) 7.7 L (20-40) % Greer % (Auto) 7.5 (2-11) % Eos % (Auto) 0.9 (0-4) % Baso % (Auto) 0.5 (0-2) % Lymph # (Auto) 2.1 (1.2-4.9) X10*3/uL Greer # (Auto) 2.0 H (0.1-1.2) X10*3/uL Eos # (Auto) 0.2 (0.0-0.4) X10*3/uL Baso # (Auto) 0.1 (0.0-0.2) X10*3/uL Abs Immat Gran (auto) 0.18 H (0.00-0.03) X10*3/uL Absolute Neuts (auto) 21.9 H (2.0-8.3) x10*3/uL Absolute Nucleated RBC 0.000 (0.0-0.012) X10*3/uL Nucleated RBC % (auto) 0.0 (0.0-0.2) /100WBC Smear Tech's Comments VERIFIED PT 33.4 H (10.0-13.1) SEC INR 2.8 H (0.9-1.1) Sodium 138 (135-145) mmol/L Potassium 3.6 (3.3-5.1) mmol/L Chloride 95 L (96-108) mmol/L Carbon Dioxide 33 H (22-29) mmol/L Anion Gap 14 (12-20) BUN 9 (9-16) mg/dL Creatinine 0.81 (0.5-1.4) mg/dL Estim Creat Clear Calc 84.7 Estimated GFR > 60 Random Glucose 114 (60-115) mg/dL Lactic Acid (0.5-2.0) mmol/L Calcium 10.0 D (8.4-10.2) mg/dL Magnesium 1.9 (1.6-2.6) mg/dL Total Bilirubin 1.8 H (0.0-1.0) mg/dL AST 16 (5-37) U/L ALT 16 (0-40) U/L Alkaline Phosphatase 79 (39-117) U/L Troponin I High Sens (<3.5-35.0) ng/L B-Natriuretic Peptide (<100) pg/mL Total Protein 7.4 (6.5-8.0) g/dL Albumin 4.9 (3.5-5.0) g/dL COVID-19 ([facility]) (Negative) COVID-19 Clin Com 12/03/22 12/03/22 12/03/22 Range/Units 22:28 22:28 22:28 WBC (4.8-10.8) X10*3/uL RBC (4.60-5.80) X10*6/uL Hgb (14.0-18.0) g/dl Hct (42.0-52.0) % MCV (80.0-98.0) fL MCH (27.0-33.0) pg MCHC (31.0-36.0) g/dl RDW (11.0-16.0) % Plt Count (160-400) X10*3/uL MPV (9.4-12.4) fL Immature Gran % (Auto) (0.0-0.4) % Neut % (Auto) (45-73) % Lymph % (Auto) (20-40) % Greer % (Auto) (2-11) % Eos % (Auto) (0-4) % Baso % (Auto) (0-2) % Lymph # (Auto) (1.2-4.9) X10*3/uL Greer # (Auto) (0.1-1.2) X10*3/uL Eos # (Auto) (0.0-0.4) X10*3/uL Baso # (Auto) (0.0-0.2) X10*3/uL Abs Immat Gran (auto) (0.00-0.03) X10*3/uL Absolute Neuts (auto) (2.0-8.3) x10*3/uL Absolute Nucleated RBC (0.0-0.012) X10*3/uL Nucleated RBC % (auto) (0.0-0.2) /100WBC Smear Tech's Comments PT (10.0-13.1) SEC INR (0.9-1.1) Sodium (135-145) mmol/L Potassium (3.3-5.1) mmol/L Chloride (96-108) mmol/L Carbon Dioxide (22-29) mmol/L Anion Gap (12-20) BUN (9-16) mg/dL Creatinine (0.5-1.4) mg/dL Estim Creat Clear Calc Estimated GFR Random Glucose (60-115) mg/dL Lactic Acid 1.1 (0.5-2.0) mmol/L Calcium (8.4-10.2) mg/dL Magnesium (1.6-2.6) mg/dL Total Bilirubin (0.0-1.0) mg/dL AST (5-37) U/L ALT (0-40) U/L Alkaline Phosphatase (39-117) U/L Troponin I High Sens < 2.7 (<3.5-35.0) ng/L B-Natriuretic Peptide 130 H (<100) pg/mL Total Protein (6.5-8.0) g/dL Albumin (3.5-5.0) g/dL COVID-19 ([facility]) (Negative) COVID-19 Clin Com 12/03/22 Range/Units 22:40 WBC (4.8-10.8) X10*3/uL RBC (4.60-5.80) X10*6/uL Hgb (14.0-18.0) g/dl Hct (42.0-52.0) % MCV (80.0-98.0) fL MCH (27.0-33.0) pg MCHC (31.0-36.0) g/dl RDW (11.0-16.0) % Plt Count (160-400) X10*3/uL MPV (9.4-12.4) fL Immature Gran % (Auto) (0.0-0.4) % Neut % (Auto) (45-73) % Lymph % (Auto) (20-40) % Greer % (Auto) (2-11) % Eos % (Auto) (0-4) % Baso % (Auto) (0-2) % Lymph # (Auto) (1.2-4.9) X10*3/uL Greer # (Auto) (0.1-1.2) X10*3/uL Eos # (Auto) (0.0-0.4) X10*3/uL Baso # (Auto) (0.0-0.2) X10*3/uL Abs Immat Gran (auto) (0.00-0.03) X10*3/uL Absolute Neuts (auto) (2.0-8.3) x10*3/uL Absolute Nucleated RBC (0.0-0.012) X10*3/uL Nucleated RBC % (auto) (0.0-0.2) /100WBC Smear Tech's Comments PT (10.0-13.1) SEC INR (0.9-1.1) Sodium (135-145) mmol/L Potassium (3.3-5.1) mmol/L Chloride (96-108) mmol/L Carbon Dioxide (22-29) mmol/L Anion Gap (12-20) BUN (9-16) mg/dL Creatinine (0.5-1.4) mg/dL Estim Creat Clear Calc Estimated GFR Random Glucose (60-115) mg/dL Lactic Acid (0.5-2.0) mmol/L Calcium (8.4-10.2) mg/dL Magnesium (1.6-2.6) mg/dL Total Bilirubin (0.0-1.0) mg/dL AST (5-37) U/L ALT (0-40) U/L Alkaline Phosphatase (39-117) U/L Troponin I High Sens (<3.5-35.0) ng/L B-Natriuretic Peptide (<100) pg/mL Total Protein (6.5-8.0) g/dL Albumin (3.5-5.0) g/dL COVID-19 ([facility]) Negative (Negative) COVID-19 Clin Com See Note Independent Interpretation I performed an independent interpretation of an: EKG Interpretation: Atrial fibrillation heart rate 73 beats per minute incomplete right bundle branch block no acute ST T wave changes no acute ischemia Discharge Plan Discharge Clinical Impression: Acute and chronic respiratory failure with hypoxia, COPD (chronic obstructive pulmonary disease), Atrial fibrillation Patient Disposition: Admitted As Inpatient
[2022-12-03 22:30] VITALS: PULSE 83; RESP 18; O2SAT 93
[2022-12-03] MEDS: 0.9 % Sodium Chloride 1,000 ML 999 ML IV (22:30)
[2022-12-03 22:37] LABS: Basophils Absolute Auto 0.1 X10*3/uL (0.0-0.2); Basophils Percent Auto 0.5 % (0-2); Eosinophils Absolute Auto 0.2 X10*3/uL (0.0-0.4); Eosinophils Percent Auto 0.9 % (0-4); Hematocrit 43.3 % (42.0-52.0); Hemoglobin 14.1 g/dl (14.0-18.0); Imm Gran Abs Auto 0.18 X10*3/uL (0.00-0.03); Imm Gran Pct Auto 0.7 % (0.0-0.4); Lymphocytes Absolute Auto 2.1 X10*3/uL (1.2-4.9); Lymphocytes Percent Auto 7.7 % (20-40); MANUAL DIFF FLAG SCAN; Mean Corpuscular HGB Conc 32.6 g/dl (31.0-36.0); Mean Corpuscular Hemoglobin 32.5 pg (27.0-33.0); Mean Corpuscular Volume 99.8 fL (80.0-98.0); Mean Platelet Volume 9.3 fL (9.4-12.4); Monocytes Percent Auto 7.5 % (2-11); Neutrophils Absolute Auto 21.9 x10*3/uL (2.0-8.3); Neutrophils Percent Auto 82.7 % (45-73); Platelet Count 271 X10*3/uL (160-400); Red Blood Count 4.34 X10*6/uL (4.60-5.80); Red Cell Distribution Width 13.4 % (11.0-16.0); SCAN SMEAR FLAG 1; White Blood Count 26.5 X10*3/uL (4.8-10.8)
[2022-12-03 22:43] LABS: INTERNATIONAL NORM RATIO 2.8 (0.9-1.1); Prothrombin Time 33.4 SEC (10.0-13.1)
[2022-12-03] MEDS: cefTRIAXone sodium 1 GM in 0.9 % Sodium Chloride 50 ML IV (22:45)
--- NOTE | 2022-12-03 22:45 | PC.NURSE ---
pt a&o, respiratory called, breathing treatment given, labs collected and sent, Iv placed, medicated per Aug, Notified VITOR Ellison.
[2022-12-03 22:50] LABS: Lactic Acid 1.1 mmol/L (0.5-2.0)
[2022-12-03 22:55] LABS: Alanine Aminotransferase 16 U/L (0-40); Albumin Level 4.9 g/dL (3.5-5.0); Alkaline Phosphatase 79 U/L (39-117); Anion Gap 14 (12-20); Aspartate Amino Transferase 16 U/L (5-37); Bilirubin Total 1.8 mg/dL (0.0-1.0); Blood Urea Nitrogen 9 mg/dL (9-16); Carbon Dioxide 33 mmol/L (22-29); Chloride 95 mmol/L (96-108); Creatinine Clr Calc Pharmacy 84.7; Estimated Glomerular Filt Rate > 60; Glucose Random 114 mg/dL (60-115); Magnesium 1.9 mg/dL (1.6-2.6); Potassium 3.6 mmol/L (3.3-5.1); Sodium 138 mmol/L (135-145); Total Protein 7.4 g/dL (6.5-8.0)
[2022-12-03 22:57] VITALS: BP 111/62; PULSE 73; RESP 10; TEMP 37.1; O2SAT 95
[2022-12-03 22:58] LABS: SLIDE REVIEW VERIFIED
[2022-12-03 23:00] LABS: B Type Natriuretic Peptide 130 pg/mL (<100)
[2022-12-03 23:02] LABS: Troponin-I High Sensitivity < 2.7 ng/L (<3.5-35.0)
[2022-12-03 23:08] LABS: COVID-19 Test Negative (Negative); IDNOW Serial# 6674DD1D
--- NOTE | 2022-12-03 23:14 | PC.NURSE ---
patient up in bed with eyes open patient vitals are stable at this time patient is on oxygen at this time patient had all labs to be drawn and sent to the lab patient stated he is in pain at this time 02/04 patient stated it is coming from his back and patient has a headache patient doctor was notified patient will continue to be monitored for safety
--- NOTE | 2022-12-03 23:28 | P.HPHOSP_ITS ---
History of Present Illness Date of Service: 12/03/22 Chief Complaint: Dyspnea This is a 62-year-old male with pertinent history of chronic hypoxemic respiratory failure due to COPD on 3 L supplemental oxygen, paroxysmal atrial fibrillation on Xarelto, mixed hyperlipidemia, mood disorder who presents to the emergency department for evaluation of dyspnea. Patient states he has been having dyspnea of associated with wheezing for the last 2-3 days. It worsened on the day of presentation. Patient tried home inhaler but no use. Patient states he was having dyspnea in spite of using his supplemental baseline 3 L oxygen. No fevers or chills. No cough. Patient denies chest discomfort, palpitations, abdominal pain, changes in urinary bowel or bowel habits. In the emergency department, patient requiring 5 L supplemental oxygen Review of Systems Constitutional: Constitutional: Reports fatigue and Reports malaise Cardiovascular: Cardiovascular: Reports dyspnea on exertion Respiratory: Respiratory: Reports dyspnea on exertion and Reports wheezing Gastrointestinal: Gastrointestinal: Reports no additional gastrointestinal complaints Genitourinary: Genitourinary: Reports no additional male genitourinary complaints Endocrine: Endocrine: Reports fatigue Allergic/Immunologic: Allergic/Immunologic: Reports wheezing [facility] Medical History Allergic rhinitis Back pain Chronic respiratory failure with hypoxia COPD (chronic obstructive pulmonary disease) COVID-19 vaccine series completed Dependence on continuous supplemental oxygen Elevated cholesterol History of cardioversion HTN (hypertension) Hypoxemia On anticoagulant therapy Persistent atrial fibrillation Family History Father No problems noted. Mother No problems noted. Father No problems noted. Mother No problems noted. Surgical History H/O colonoscopy History of back surgery History of esophagogastroduodenoscopy (EGD) Social History Household Members: None Housing: Apartment Are you a primary patient care technician instructor to a significant other at home: No Do you presently have visiting nurse or other home services: No Alcohol intake: never Patient Tobacco Use Status: Former Tobacco user Quit Date: 2000 Tobacco use type: Cigarette e-Cigarette/Vaping Use: Never Used Second Hand Smoke Exposure: No service: No Current occupational status: disabled Cognitive needs: No Hearing needs: No Vision needs: Yes Meds Allergies Allergy/AdvReac Type Severity Reaction Status Date / Time No Known Allergies Allergy Verified 11/06/22 09:46 Active Medications: Current Medications Acetaminophen (Acetaminophen 325 Mg Tablet) 650 mg PO Q6H PRN PRN Reason: Pain, Mild (Pain Scale 1-3) Benzonatate (Benzonatate 100 Mg Capsule) 100 mg PO TID PRN PRN Reason: Cough Ondansetron HCl (Ondansetron Hcl 4 Mg/2 Ml Vial) 4 mg IVPUSH Q8H PRN PRN Reason: Nausea and Vomiting Pharmacy Consult (Consult Rx Perform Med Rec) 1 each MISCELLANE ONCE PRN PRN Reason: Consult order Sodium Chloride (0.9 % Sodium Chloride Flush 3 Ml Syringe) 3 ml IVFLUSH [facility] Home Medications Medication Instructions Recorded Confirmed Last Taken Type lorazepam 0.5 mg tablet 0.5 mg PO BEDTIME PRN anxiety 09/07/22 11/06/22 Unknown History magnesium oxide 400 mg (241.3 mg 400 mg PO DAILY 09/07/22 11/06/22 09/07/22 History magnesium) tablet simvastatin 40 mg tablet 40 mg PO DAILY 09/07/22 11/06/22 09/07/22 History Physical Exam Vital Signs and Narrative: Vital Signs: Last Vital Signs Temp 98.8 F 12/03/22 22:57 Pulse 73 12/03/22 22:57 Resp 10 L 12/03/22 22:57 BP 111/62 12/03/22 22:57 Pulse Ox 95 12/03/22 22:57 O2 Del Method BiPAP 12/03/22 22:57 Oxygen Flow Rate 5 12/03/22 22:57 BMI result Body Mass Index 21.2 Middle-aged male lying in bed in mild distress on supplemental oxygen Neck supple, no JVD Irregularly irregular, S1-S2 heard Bilateral wheezing present Abdomen soft nontender, no guarding, no rigidity Patient is awake, alert and oriented to self, place, time and person ; no focal motor deficit Psych: Normal mood Results Labs 12/03/22 22:28 12/03/22 22:28 Labs: Laboratory Results - last 24 hr 12/03/22 12/03/22 12/03/22 22:28 22:28 22:28 MCV 99.8 H MCH 32.5 MCHC 32.6 RDW 13.4 Plt Count 271 MPV 9.3 L Immature Gran % (Auto) 0.7 H Neut % (Auto) 82.7 H Lymph % (Auto) 7.7 L [place] % (Auto) 7.5 Eos % (Auto) 0.9 Baso % (Auto) 0.5 Lymph # (Auto) 2.1 [place] # (Auto) 2.0 H Eos # (Auto) 0.2 Baso # (Auto) 0.1 Abs Immat Gran (auto) 0.18 H Absolute Neuts (auto) 21.9 H Absolute Nucleated RBC 0.000 Nucleated RBC % (auto) 0.0 Smear Tech's Comments VERIFIED PT 33.4 H INR 2.8 H Anion Gap 14 Estim Creat Clear Calc 84.7 Estimated GFR > 60 Random Glucose 114 Lactic Acid Calcium 10.0 D Magnesium 1.9 Total Bilirubin 1.8 H AST 16 ALT 16 Alkaline Phosphatase 79 Troponin I High Sens B-Natriuretic Peptide Total Protein 7.4 Albumin 4.9 COVID-19 ([facility]ANY) [employer] 12/03/22 12/03/22 12/03/22 22:28 22:28 22:28 MCV MCH MCHC RDW Plt Count MPV Immature Gran % (Auto) Neut % (Auto) Lymph % (Auto) [place] % (Auto) Eos % (Auto) Baso % (Auto) Lymph # (Auto) [place] # (Auto) Eos # (Auto) Baso # (Auto) Abs Immat Gran (auto) Absolute Neuts (auto) Absolute Nucleated RBC Nucleated RBC % (auto) Smear Tech's Comments PT INR Anion Gap Estim Creat Clear Calc Estimated GFR Random Glucose Lactic Acid 1.1 Calcium Magnesium Total Bilirubin AST ALT Alkaline Phosphatase Troponin I High Sens < 2.7 B-Natriuretic Peptide 130 H Total Protein Albumin COVID-19 ([facility]ANY) [employer] 12/03/22 22:40 MCV MCH MCHC RDW Plt Count MPV Immature Gran % (Auto) Neut % (Auto) Lymph % (Auto) [place] % (Auto) Eos % (Auto) Baso % (Auto) Lymph # (Auto) [place] # (Auto) Eos # (Auto) Baso # (Auto) Abs Immat Gran (auto) Absolute Neuts (auto) Absolute Nucleated RBC Nucleated RBC % (auto) Smear Tech's Comments PT INR Anion Gap Estim Creat Clear Calc Estimated GFR Random Glucose Lactic Acid Calcium Magnesium Total Bilirubin AST ALT Alkaline Phosphatase Troponin I High Sens B-Natriuretic Peptide Total Protein Albumin COVID-19 ([facility]) Negative COVID-19 Clin Com See Note Assessment and Plan (1) COPD exacerbation: Status: Acute Plan This is a 62-year-old male with pertinent history of chronic hypoxemic respiratory failure due to COPD on 3 L supplemental oxygen, paroxysmal atrial fi brillation on Xarelto, mixed hyperlipidemia, mood disorder who presents to the emergency department for evaluation of dyspnea. #. Acute on chronic hypoxemic respiratory failure due to acute exacerbation of COPD. Initiating systemic steroids. Scheduled and p.r.n. DuoNebs. Continue home inhaler. Monitor oxygen saturation and wean as tolerated, maintain oxygen saturation greater than 88%. On 3 L baseline supplemental oxygen at home. Initiating azithromycin for pleiotropic effect #. Reactive leukocytosis #. Paroxysmal atrial fibrillation on Xarelto. Rate control in the ER. Continue metoprolol #. Mood disorder. Continue home mood stabilizers #. Mixed hyperlipidemia: On statin Med rec pending DVT prophylaxis: On Xarelto Full code Cardiac diet Admit as inpatient and will require two night minimum hospital stay for supplemental oxygen Time Spent With Patient Time: Total time managing care of this patient today ____ minutes. Quality Stroke Does the patient have a stroke diagnosis?: No VTE Prior VTE?: No VTE Risk Level:: Medical - moderate - high VTE Device Contraindication: Treatment Not Indicated VTE Drug Contraindication: N/A - Med Ordered
[2022-12-04] VITALS (9 sets, daily range): BP systolic 93–113; BP diastolic 53–81; PULSE 66–104; RESP 16–20; TEMP 36.1–36.8; O2SAT 93–99; BMI 21.0
--- NOTE | 2022-12-04 01:11 | PC.NURSE ---
report was handed over to the overflow nurse Clau patient was made aware and transported with no issues safety was maintained
[2022-12-04] MEDS: methylPREDNISolone Sod Succ 40 MG/ML VIAL IVPUSH ×3 (02:53→18:16)
[2022-12-04] MEDS: Azithromycin 500 MG in 0.9 % Sodium Chloride 250 ML 125 MG IV (02:53)
[2022-12-04] MEDS: Acetaminophen 325 MG TABLET 650 MG PO (03:00)
[2022-12-04] MEDS: 0.9 % Sodium Chloride Flush 3 ML SYRINGE IVFLUSH ×4 (03:01→19:58)
[2022-12-04] MEDS: oxyCODONE HCl Immed Release 5 MG TABLET PO ×5 (03:28→21:46)
--- NOTE | 2022-12-04 04:34 | PC.NURSE ---
Received patient from the ED around 01:12. Pt A&OX4, pleasant and cooperative. Pt's vitals signs obtained and call rosa given. Pt is on 5L NC, sob and has a productive cough. IV Solumedrol and IV antibiotics as ordered.
--- NOTE | 2022-12-04 05:35 | PC.NURSE ---
Pt napped intermittently throughout the night. Chronic back pain relieved with po Oxycodone.
[2022-12-04 05:54] LABS: Basophils Absolute Auto 0.1 X10*3/uL (0.0-0.2); Basophils Percent Auto 0.4 % (0-2); Eosinophils Absolute Auto 0.1 X10*3/uL (0.0-0.4); Eosinophils Percent Auto 0.7 % (0-4); Hematocrit 39.1 % (42.0-52.0); Hemoglobin 12.6 g/dl (14.0-18.0); Imm Gran Abs Auto 0.14 X10*3/uL (0.00-0.03); Imm Gran Pct Auto 0.8 % (0.0-0.4); Lymphocytes Absolute Auto 0.6 X10*3/uL (1.2-4.9); Lymphocytes Percent Auto 3.5 % (20-40); MANUAL DIFF FLAG SCAN; Mean Corpuscular HGB Conc 32.2 g/dl (31.0-36.0); Mean Corpuscular Hemoglobin 32.3 pg (27.0-33.0); Mean Corpuscular Volume 100.3 fL (80.0-98.0); Mean Platelet Volume 9.4 fL (9.4-12.4); Monocytes Absolute Auto 0.4 X10*3/uL (0.1-1.2); Monocytes Percent Auto 2.4 % (2-11); Neutrophils Absolute Auto 16.9 x10*3/uL (2.0-8.3); Neutrophils Percent Auto 92.2 % (45-73); Platelet Count 228 X10*3/uL (160-400); Red Cell Distribution Width 13.6 % (11.0-16.0); SCAN SMEAR FLAG 1; White Blood Count 18.3 X10*3/uL (4.8-10.8)
[2022-12-04 06:09] LABS: Anion Gap 14 (12-20); Blood Urea Nitrogen 9 mg/dL (9-16); Calcium 9.2 mg/dL (8.4-10.2); Carbon Dioxide 28 mmol/L (22-29); Chloride 101 mmol/L (96-108); Creatinine Clr Calc Pharmacy 100.8; Estimated Glomerular Filt Rate > 60; Glucose Random 129 mg/dL (60-115); Potassium 3.9 mmol/L (3.3-5.1); Sodium 139 mmol/L (135-145)
[2022-12-04] MEDS: Albuterol/Iprat 2.5/0.5MG 3 ML AMPUL.NEB INHALE ×5 (08:11→20:17)
--- NOTE | 2022-12-04 08:22 | PHA.MEDREC ---
Pharmacy Consult ? Medication Reconciliation Pharmacy has completed the medication reconciliation.
--- NOTE | 2022-12-04 08:30 | HO.PM.IMPN ---
Subjective Subjective Date of Service: 12/04/22 Interval History: f/u on acute on chronic resp failure d/t copd exacerbation interval history: still fee sob, and can cath his breath Physical Exam Vital Signs: Vital Signs: Last Vital Signs Temp 98.3 F 12/04/22 06:42 Pulse 87 12/04/22 08:12 Resp 16 12/04/22 08:12 BP 96/53 L 12/04/22 06:42 Pulse Ox 96 12/04/22 06:42 O2 Del Method Nasal Cannula 12/04/22 06:42 O2 Flow Rate 5.0 12/04/22 06:42 Oxygen Flow Rate 5 12/03/22 22:57 BMI result Body Mass Index 21.2 Const: Other: General: AO X 3, no acute distress Resp: tight air movement, mild accessory muscle use, and difuse wheeze CVS: S1,S2,RRR GI: +BS, NT, no distention Skin: No rash Neuro: motor grossly intact Psych: appropriate affect Objective Data Active Medications Acetaminophen (Acetaminophen 325 Mg Tablet) 650 mg PO Q6H PRN PRN Reason: Pain, Mild (Pain Scale 1-3) Last Admin: 12/04/22 03:00 Dose: 650 mg Documented By: ANAHY Albuterol/Ipratropium (Albuterol/Iprat 2.5/0.5mg 3 Ml Ampul.Neb) 3 ml INHALE RQ4H WHILE AWAKE [facility] Last Admin: 12/04/22 08:11 Dose: 3 ml Documented By: SHAE Albuterol/Ipratropium (Albuterol/Iprat 2.5/0.5mg 3 Ml Ampul.Neb) 3 ml INHALE Q4H PRN PRN Reason: Wheezing Benzonatate (Benzonatate 100 Mg Capsule) 100 mg PO TID PRN PRN Reason: Cough Diltiazem HCl (Diltiazem Hcl Cd 180 Mg Cap.Er.24h) 180 mg PO DAILY [facility]; Protocol Famotidine (Famotidine 20 Mg Tablet) 40 mg PO DAILY SARAY Furosemide (Furosemide 40 Mg Tablet) 40 mg PO DAILY PRN; Protocol PRN Reason: edema Azithromycin 500 mg/ Sodium (Chloride) 250 mls @ 125 mls/hr IV Q24H [facility] Last Infusion: 12/04/22 04:53 Dose: 0 mls/hr Documented By: ANAHY Lorazepam (Lorazepam 0.5 Mg Tablet) 0.5 mg PO BEDTIME PRN PRN Reason: anxiety Magnesium Oxide (Magnesium Oxide 400 Mg Tablet) 400 mg PO DAILY [facility] Melatonin (Melatonin 3 Mg Tablet) 6 mg PO BEDTIME PRN PRN Reason: Insomnia Methylprednisolone Sodium Succinate (Methylprednisolone Sod Succ 40 Mg/Ml Vial) 40 mg IVPUSH Q12H [facility] Last Admin: 12/04/22 02:53 Dose: 40 mg Documented By: ANAHY Metoprolol Succinate (Metoprolol Succinate Er 50 Mg Tab.Er.24h) 50 mg PO TID [facility]; Protocol Non-Formulary Medication (Fluticasone Propion-Salmeterol [Wixela Inhub]) 1 each PO BID [facility] Non-Formulary Medication (Simvastatin) 40 mg PO DAILY [facility] Ondansetron HCl (Ondansetron Hcl 4 Mg/2 Ml Vial) 4 mg IVPUSH Q8H PRN PRN Reason: Nausea and Vomiting Oxycodone HCl (Oxycodone Hcl Immed Release 5 Mg Tablet) 5 mg PO Q4-6H PRN PRN Reason: Pain, Severe (Pain Scale 7-10) Pharmacy Consult (Consult Rx Perform Med Rec) 1 each MISCELLANE ONCE PRN PRN Reason: Consult order Quetiapine Fumarate (Quetiapine Fumarate 200 Mg Tablet) 200 mg PO DAILY@0000 [facility] Rivaroxaban (Rivaroxaban 20 Mg Tablet) 20 mg PO DAILY [facility] Sodium Chloride (0.9 % Sodium Chloride Flush 3 Ml Syringe) 3 ml IVFLUSH QSHIFT [facility] Last Admin: 12/04/22 08:25 Dose: 3 ml Documented By: JEANETTE Trazodone HCl (Trazodone Hcl 100 Mg Tablet) 100 mg PO DAILY@0000 [facility] Zolpidem Tartrate (Zolpidem Tartrate 5 Mg Tablet) 10 mg PO DAILY@0000 PRN PRN Reason: insomnia Labs 12/04/22 05:38 12/04/22 05:38 Labs: Laboratory Results - last 24 hr 12/03/22 12/03/22 12/03/22 22:28 22:28 22:28 MCV 99.8 H MCH 32.5 MCHC 32.6 RDW 13.4 Plt Count 271 MPV 9.3 L Immature Gran % (Auto) 0.7 H Neut % (Auto) 82.7 H Lymph % (Auto) 7.7 L [place] % (Auto) 7.5 Eos % (Auto) 0.9 Baso % (Auto) 0.5 Lymph # (Auto) 2.1 [place] # (Auto) 2.0 H Eos # (Auto) 0.2 Baso # (Auto) 0.1 Abs Immat Gran (auto) 0.18 H Absolute Neuts (auto) 21.9 H Absolute Nucleated RBC 0.000 Nucleated RBC % (auto) 0.0 Smear Tech's Comments VERIFIED PT 33.4 H INR 2.8 H Anion Gap 14 Estim Creat Clear Calc 84.7 Estimated GFR > 60 Random Glucose 114 Lactic Acid Calcium 10.0 D Magnesium 1.9 Total Bilirubin 1.8 H AST 16 ALT 16 Alkaline Phosphatase 79 Troponin I High Sens B-Natriuretic Peptide Total Protein 7.4 Albumin 4.9 COVID-19 ([facility]) COVID-19 [employer] 12/03/22 12/03/22 12/03/22 22:28 22:28 22:28 MCV MCH MCHC RDW Plt Count MPV Immature Gran % (Auto) Neut % (Auto) Lymph % (Auto) [place] % (Auto) Eos % (Auto) Baso % (Auto) Lymph # (Auto) [place] # (Auto) Eos # (Auto) Baso # (Auto) Abs Immat Gran (auto) Absolute Neuts (auto) Absolute Nucleated RBC Nucleated RBC % (auto) Smear Tech's Comments PT INR Anion Gap Estim Creat Clear Calc Estimated GFR Random Glucose Lactic Acid 1.1 Calcium Magnesium Total Bilirubin AST ALT Alkaline Phosphatase Troponin I High Sens < 2.7 B-Natriuretic Peptide 130 H Total Protein Albumin COVID-19 ([facility]) COVID-19 [employer] 12/03/22 12/04/22 12/04/22 22:40 05:38 05:38 MCV 100.3 H MCH 32.3 MCHC 32.2 RDW 13.6 Plt Count 228 MPV 9.4 Immature Gran % (Auto) 0.8 H Neut % (Auto) 92.2 H Lymph % (Auto) 3.5 L [place] % (Auto) 2.4 Eos % (Auto) 0.7 Baso % (Auto) 0.4 Lymph # (Auto) 0.6 L [place] # (Auto) 0.4 Eos # (Auto) 0.1 Baso # (Auto) 0.1 Abs Immat Gran (auto) 0.14 H Absolute Neuts (auto) 16.9 H Absolute Nucleated RBC 0.000 Nucleated RBC % (auto) 0.0 Smear Tech's Comments PT INR Anion Gap 14 Estim Creat Clear Calc 100.8 Estimated GFR > 60 Random Glucose 129 H Lactic Acid Calcium 9.2 D Magnesium Total Bilirubin AST ALT Alkaline Phosphatase Troponin I High Sens B-Natriuretic Peptide Total Protein Albumin COVID-19 ([facility]) Negative COVID-19 Clin Com See Note Assessment and Plan (1) Acute and chronic respiratory failure with hypoxia: Status: Acute (2) COPD exacerbation: Status: Acute (3) Atrial fibrillation: Status: Acute Plan This is a 62-year-old male with pertinent history of chronic hypoxemic respiratory failure due to COPD on 3 L supplemental oxygen, paroxysmal atrial fibrillation on Xarelto, mixed hyperlipidemia, mood disorder who presents to the emergency department for evaluation of dyspnea. #? Acute on chronic hypoxemic respiratory failure due to acute exacerbation of COPD, probably precipitated by bronchitis -Continue IV steroid, bronchodilators by Neb, empiric Azithromycin, continue chronic Supplemental O2 #. Reactive leukocytosis--likely from chronic steroid use #.? Paroxysmal atrial fibrillation on Xarelto.? Cardizem and metoprolol for rate control #.? Mood disorder.? Continue home mood stabilizers #.? Mixed hyperlipidemia: On statin Med rec completed DVT prophylaxis:? On Xarelto Full code Cardiac diet Need for inpatient: Acute hypoxic resp failure d/t copd being treated with IV steroid, and monitoring for response, close moniotoring of hypoxia Time Spent With Patient Time: Total time managing care of this patient today ____ minutes. Quality Stroke Does the patient have a stroke diagnosis?: No VTE Prior VTE?: No VTE Risk Level:: Medical - moderate - high VTE Device Contraindication: Treatment Not Indicated VTE Drug Contraindication: N/A - Med Ordered
[2022-12-04] MEDS: Magnesium Oxide 400 MG TABLET PO (08:44)
[2022-12-04] MEDS: Metoprolol Succinate ER 50 MG TAB.ER.24H PO ×3 (08:45→21:46)
[2022-12-04] MEDS: dilTIAZem HCL CD 180 MG CAP.ER.24H PO (08:45)
[2022-12-04] MEDS: Atorvastatin Calcium 20 MG TABLET PO (08:45)
[2022-12-04] MEDS: Famotidine 20 MG TABLET 40 MG PO (08:45)
[2022-12-04] MEDS: Rivaroxaban 20 MG TABLET PO (11:08)
[2022-12-04] MEDS: LORazepam 0.5 MG TABLET PO ×2 (17:29→21:46)
--- NOTE | 2022-12-04 18:38 | PC.NURSE ---
At approx 17:45, pt was having increased work of breathing, with expiratory wheezes. Respiratory was notified and gave pt duoneb updraft. Pt was given ativan for increased anxiety. Dr. Lang was notified and order was given for solumedrol IVP x 1 now. Pt breathing slowly improving and anxiety decreasing. Will continue to monitor.
[2022-12-05] VITALS (9 sets, daily range): BP systolic 97–119; BP diastolic 58–76; PULSE 74–96; RESP 16–22; TEMP 35.8–36.1; O2SAT 97–99
[2022-12-05] MEDS: Azithromycin 500 MG in 0.9 % Sodium Chloride 250 ML 125 MG IV (00:11)
[2022-12-05] MEDS: Zolpidem Tartrate 5 MG TABLET 10 MG PO (01:03)
[2022-12-05] MEDS: QUEtiapine Fumarate 200 MG TABLET PO (01:04)
[2022-12-05] MEDS: traZODone HCL 100 MG TABLET PO (01:04)
[2022-12-05] MEDS: oxyCODONE HCl Immed Release 5 MG TABLET PO ×5 (06:14→23:34)
[2022-12-05 06:38] LABS: Hematocrit 37.7 % (42.0-52.0); Hemoglobin 12.3 g/dl (14.0-18.0); Mean Corpuscular HGB Conc 32.6 g/dl (31.0-36.0); Mean Corpuscular Hemoglobin 32.4 pg (27.0-33.0); Mean Corpuscular Volume 99.2 fL (80.0-98.0); Mean Platelet Volume 9.6 fL (9.4-12.4); Platelet Count 253 X10*3/uL (160-400); Red Cell Distribution Width 13.2 % (11.0-16.0); White Blood Count 15.6 X10*3/uL (4.8-10.8)
[2022-12-05] MEDS: Albuterol/Iprat 2.5/0.5MG 3 ML AMPUL.NEB INHALE ×4 (07:44→18:45)
--- NOTE | 2022-12-05 08:33 | HO.PM.IMPN ---
Subjective Subjective Date of Service: 12/05/22 Interval History: f/u on acute on chronic resp failure d/t copd exacerbation interval history: Still with signficant difficulty breathing, O2 sat Ok Physical Exam Vital Signs: Vital Signs: Last Vital Signs Temp 96.8 F 12/05/22 07:38 Pulse 78 12/05/22 07:45 Resp 20 12/05/22 07:45 BP 97/70 12/05/22 07:38 Pulse Ox 98 12/05/22 07:38 O2 Del Method Nasal Cannula 12/05/22 07:38 O2 Flow Rate 3 12/05/22 07:38 Oxygen Flow Rate 5 12/03/22 22:57 BMI result Body Mass Index 21.0 Const: Other: General: AO X 3, no acute distress Resp: tight air movement, mild accessory muscle use, and less wheeze CVS: S1,S2,RRR GI: +BS, NT, no distention Skin: No rash Neuro: motor grossly intact Psych: appropriate affect Objective Data Active Medications Acetaminophen (Acetaminophen 325 Mg Tablet) 650 mg PO Q6H PRN PRN Reason: Pain, Mild (Pain Scale 1-3) Last Admin: 12/04/22 03:00 Dose: 650 mg Documented By: ANAHY Albuterol/Ipratropium (Albuterol/Iprat 2.5/0.5mg 3 Ml Ampul.Neb) 3 ml INHALE RQ4H WHILE AWAKE [facility] Last Admin: 12/05/22 07:44 Dose: 3 ml Documented By: BHASKAR Albuterol/Ipratropium (Albuterol/Iprat 2.5/0.5mg 3 Ml Ampul.Neb) 3 ml INHALE Q4H PRN PRN Reason: Wheezing Last Admin: 12/04/22 17:59 Dose: 3 ml Documented By: GRAZJOEY Atorvastatin Calcium (Atorvastatin Calcium 20 Mg Tablet) 20 mg PO DAILY [facility] Last Admin: 12/04/22 08:45 Dose: 20 mg Documented By: JEANETTE Benzonatate (Benzonatate 100 Mg Capsule) 100 mg PO TID PRN PRN Reason: Cough Diltiazem HCl (Diltiazem Hcl Cd 180 Mg Cap.Er.24h) 180 mg PO DAILY [facility]; Protocol Last Admin: 12/04/22 08:45 Dose: 180 mg Documented By: JEANETTE Famotidine (Famotidine 20 Mg Tablet) 40 mg PO DAILY [facility] Last Admin: 12/04/22 08:45 Dose: 40 mg Documented By: JEANETTE Fluticasone/Vilanterol (Fluticasone/Vilanterol 100/25 Blst.W.Dev) 1 puff INHALE RDAILY [facility] Last Admin: 12/05/22 07:46 Dose: Not Given Documented By: BHASKAR Non-Admin Reason: not available, pharmacy notified. Furosemide (Furosemide 40 Mg Tablet) 40 mg PO DAILY PRN; Protocol PRN Reason: edema Azithromycin 500 mg/ Sodium (Chloride) 250 mls @ 125 mls/hr IV Q24H [facility] Last Infusion: 12/05/22 02:26 Dose: 0 mls/hr Documented By: YI Lorazepam (Lorazepam 0.5 Mg Tablet) 0.5 mg PO BEDTIME PRN PRN Reason: anxiety Last Admin: 12/04/22 21:46 Dose: 0.5 mg Documented By: GABBY Lorazepam (Lorazepam 0.5 Mg Tablet) 0.5 mg PO Q4H PRN PRN Reason: Anxiety Last Admin: 12/04/22 17:29 Dose: 0.5 mg Documented By: ALECIA Magnesium Oxide (Magnesium Oxide 400 Mg Tablet) 400 mg PO DAILY [facility] Last Admin: 12/04/22 08:44 Dose: 400 mg Documented By: JEANETTE Melatonin (Melatonin 3 Mg Tablet) 6 mg PO BEDTIME PRN PRN Reason: Insomnia Metoprolol Succinate (Metoprolol Succinate Er 50 Mg Tab.Er.24h) 50 mg PO TID [facility]; Protocol Last Admin: 12/04/22 21:46 Dose: 50 mg Documented By: GABBY Ondansetron HCl (Ondansetron Hcl 4 Mg/2 Ml Vial) 4 mg IVPUSH Q8H PRN PRN Reason: Nausea and Vomiting Oxycodone HCl (Oxycodone Hcl Immed Release 5 Mg Tablet) 5 mg PO Q4H PRN PRN Reason: Pain, Severe (Pain Scale 7-10) Last Admin: 12/05/22 06:14 Dose: 5 mg Documented By: YI Pharmacy Consult (Consult Rx Perform Med Rec) 1 each MISCELLANE ONCE PRN PRN Reason: Consult order Quetiapine Fumarate (Quetiapine Fumarate 200 Mg Tablet) 200 mg PO DAILY@0000 [facility] Last Admin: 12/05/22 01:04 Dose: 200 mg Documented By: YI Rivaroxaban (Rivaroxaban 20 Mg Tablet) 20 mg PO DAILY [facility] Last Admin: 12/04/22 11:08 Dose: 20 mg Documented By: ALECIA Sodium Chloride (0.9 % Sodium Chloride Flush 3 Ml Syringe) 3 ml IVFLUSH QSHIFT [facility] Last Admin: 12/04/22 19:58 Dose: 3 ml Documented By: YI Trazodone HCl (Trazodone Hcl 100 Mg Tablet) 100 mg PO DAILY@0000 [facility] Last Admin: 12/05/22 01:04 Dose: 100 mg Documented By: YI Zolpidem Tartrate (Zolpidem Tartrate 5 Mg Tablet) 10 mg PO DAILY@0000 PRN PRN Reason: insomnia Last Admin: 12/05/22 01:03 Dose: 10 mg Documented By: YI Labs 12/05/22 05:47 12/04/22 05:38 Labs: Laboratory Results - last 24 hr 12/05/22 05:47 MCV 99.2 H MCH 32.4 MCHC 32.6 RDW 13.2 Plt Count 253 MPV 9.6 Absolute Nucleated RBC 0.000 Nucleated RBC % (auto) 0.0 Microbiology Microbiology Results: Microbiology 12/03/22 22:40 Blood Culture - Preliminary Blood - Venous No growth after 24 hours. 12/03/22 22:32 Blood Culture - Preliminary Blood - Venous No growth after 24 hours. Assessment and Plan (1) Acute and chronic respiratory failure with hypoxia: Status: Acute (2) Atrial fibrillation: Status: Acute (3) COPD exacerbation: Status: Acute Plan This is a 62-year-old male with pertinent history of chronic hypoxemic respiratory failure due to COPD on 3 L supplemental oxygen, paroxysmal atrial fibrillation on Xarelto, mixed hyperlipidemia, mood disorder who presents to the emergency department for evaluation of dyspnea. #? Acute on chronic hypoxemic respiratory failure due to acute exacerbation of COPD, probably precipitated by bronchitis -Continue IV steroid, bronchodilators by Neb, empiric Azithromycin, continue chronic Supplemental O2 , if not improving pulmonology consult #. Reactive leukocytosis--likely from chronic steroid use, better #.? Paroxysmal atrial fibrillation on Xarelto.? Cardizem and metoprolol for rate control #.? Mood disorder.? Continue home mood stabilizers #.? Mixed hyperlipidemia: On statin DVT prophylaxis:? On Xarelto Full code Cardiac diet Need for inpatient: Acute hypoxic resp failure d/t copd being treated with IV steroid, and monitoring for response, close moniotoring of hypoxia Time Spent With Patient Time: Total time managing care of this patient today ____ minutes. Quality Stroke Does the patient have a stroke diagnosis?: No VTE Prior VTE?: No VTE Risk Level:: Medical - moderate - high VTE Device Contraindication: Treatment Not Indicated VTE Drug Contraindication: N/A - Med Ordered
[2022-12-05] MEDS: Atorvastatin Calcium 20 MG TABLET PO (08:47)
[2022-12-05] MEDS: Metoprolol Succinate ER 50 MG TAB.ER.24H PO ×3 (08:47→21:18)
[2022-12-05] MEDS: dilTIAZem HCL CD 180 MG CAP.ER.24H PO (08:48)
[2022-12-05] MEDS: Famotidine 20 MG TABLET 40 MG PO (08:48)
[2022-12-05] MEDS: Rivaroxaban 20 MG TABLET PO (08:48)
[2022-12-05] MEDS: Magnesium Oxide 400 MG TABLET PO (08:48)
[2022-12-05] MEDS: LORazepam 0.5 MG TABLET PO ×3 (08:53→19:34)
[2022-12-05] MEDS: 0.9 % Sodium Chloride Flush 3 ML SYRINGE IVFLUSH ×3 (08:53→19:37)
--- NOTE | 2022-12-05 12:06 | MHC.CM.BRN ---
pt lives alone has home 02 and homemaker services thru [facility] he will need a ride home when dcd dc plan home
[2022-12-06] VITALS (8 sets, daily range): BP systolic 95–122; BP diastolic 67–84; PULSE 80–90; RESP 16–22; TEMP 36.1–36.3; O2SAT 96–100
[2022-12-06] MEDS: traZODone HCL 100 MG TABLET PO ×2 (00:11→22:36)
[2022-12-06] MEDS: Zolpidem Tartrate 5 MG TABLET 10 MG PO (00:11)
[2022-12-06] MEDS: QUEtiapine Fumarate 200 MG TABLET PO ×2 (00:12→22:36)
[2022-12-06] MEDS: Azithromycin 500 MG in 0.9 % Sodium Chloride 250 ML 125 MG IV ×2 (00:17→22:40)
[2022-12-06] MEDS: Atorvastatin Calcium 20 MG TABLET PO (07:21)
[2022-12-06] MEDS: Metoprolol Succinate ER 50 MG TAB.ER.24H PO ×3 (07:21→19:43)
[2022-12-06] MEDS: LORazepam 0.5 MG TABLET PO ×4 (07:21→22:35)
[2022-12-06] MEDS: oxyCODONE HCl Immed Release 5 MG TABLET PO ×4 (07:21→22:36)
[2022-12-06] MEDS: Magnesium Oxide 400 MG TABLET PO (07:21)
[2022-12-06] MEDS: Famotidine 20 MG TABLET 40 MG PO (07:21)
[2022-12-06] MEDS: dilTIAZem HCL CD 180 MG CAP.ER.24H PO (07:21)
[2022-12-06] MEDS: Rivaroxaban 20 MG TABLET PO (07:21)
[2022-12-06] MEDS: Furosemide 40 MG TABLET PO (07:33)
[2022-12-06] MEDS: Fluticasone/Vilanterol 100/25 BLST.W.DEV 1 PUFF INHALE (08:23)
[2022-12-06] MEDS: Albuterol/Iprat 2.5/0.5MG 3 ML AMPUL.NEB INHALE ×4 (08:23→19:01)
--- NOTE | 2022-12-06 08:32 | HO.PM.IMPN ---
Subjective Subjective Date of Service: 12/06/22 Interval History: f/u on acute on chronic resp failure d/t copd exacerbation interval history: persistent shortness of breath, feels congested Physical Exam Vital Signs: Vital Signs: Last Vital Signs Temp 97.2 F 12/06/22 07:12 Pulse 90 12/06/22 08:23 Resp 20 12/06/22 08:23 BP 122/79 12/06/22 07:12 Pulse Ox 97 12/06/22 07:12 O2 Del Method Nasal Cannula 12/06/22 07:12 O2 Flow Rate 3 12/06/22 07:12 Oxygen Flow Rate 5 12/03/22 22:57 BMI result Body Mass Index 21.0 Const: Other: General: AO X 3, no acute distress Resp: difuse rhonchi, exp wheeze, no accessory muscle use CVS: S1,S2,RRR GI: +BS, NT, no distention Skin: No rash Neuro: motor grossly intact Psych: appropriate affect Objective Data Active Medications Acetaminophen (Acetaminophen 325 Mg Tablet) 650 mg PO Q6H PRN PRN Reason: Pain, Mild (Pain Scale 1-3) Last Admin: 12/04/22 03:00 Dose: 650 mg Documented By: ANAHY Albuterol/Ipratropium (Albuterol/Iprat 2.5/0.5mg 3 Ml Ampul.Neb) 3 ml INHALE RQ4H WHILE AWAKE [facility] Last Admin: 12/06/22 08:23 Dose: 3 ml Documented By: BHASKAR Albuterol/Ipratropium (Albuterol/Iprat 2.5/0.5mg 3 Ml Ampul.Neb) 3 ml INHALE Q4H PRN PRN Reason: Wheezing Last Admin: 12/04/22 17:59 Dose: 3 ml Documented By: ALECIA Atorvastatin Calcium (Atorvastatin Calcium 20 Mg Tablet) 20 mg PO DAILY [facility] Last Admin: 12/06/22 07:21 Dose: 20 mg Documented By: SAE Benzonatate (Benzonatate 100 Mg Capsule) 100 mg PO TID PRN PRN Reason: Cough Diltiazem HCl (Diltiazem Hcl Cd 180 Mg Cap.Er.24h) 180 mg PO DAILY [facility]; Protocol Last Admin: 12/06/22 07:21 Dose: 180 mg Documented By: SAE Famotidine (Famotidine 20 Mg Tablet) 40 mg PO DAILY [facility] Last Admin: 12/06/22 07:21 Dose: 40 mg Documented By: SAE Fluticasone/Vilanterol (Fluticasone/Vilanterol 100/25 Blst.W.Dev) 1 puff INHALE RDAILY [facility] Last Admin: 12/06/22 08:23 Dose: 1 puff Documented By: BHASKAR Furosemide (Furosemide 40 Mg Tablet) 40 mg PO DAILY PRN; Protocol PRN Reason: edema Last Admin: 12/06/22 07:33 Dose: 40 mg Documented By: SAE Azithromycin 500 mg/ Sodium (Chloride) 250 mls @ 125 mls/hr IV Q24H [facility] Last Infusion: 12/06/22 02:29 Dose: 0 mls/hr Documented By: YI Lorazepam (Lorazepam 0.5 Mg Tablet) 0.5 mg PO BEDTIME PRN PRN Reason: anxiety Last Admin: 12/04/22 21:46 Dose: 0.5 mg Documented By: GABBY Lorazepam (Lorazepam 0.5 Mg Tablet) 0.5 mg PO Q4H PRN PRN Reason: Anxiety Last Admin: 12/06/22 07:21 Dose: 0.5 mg Documented By: SAE Magnesium Oxide (Magnesium Oxide 400 Mg Tablet) 400 mg PO DAILY [facility] Last Admin: 12/06/22 07:21 Dose: 400 mg Documented By: SAE Melatonin (Melatonin 3 Mg Tablet) 6 mg PO BEDTIME PRN PRN Reason: Insomnia Metoprolol Succinate (Metoprolol Succinate Er 50 Mg Tab.Er.24h) 50 mg PO TID [facility]; Protocol Last Admin: 12/06/22 07:21 Dose: 50 mg Documented By: SAE Ondansetron HCl (Ondansetron Hcl 4 Mg/2 Ml Vial) 4 mg IVPUSH Q8H PRN PRN Reason: Nausea and Vomiting Oxycodone HCl (Oxycodone Hcl Immed Release 5 Mg Tablet) 5 mg PO Q4H PRN PRN Reason: Pain, Severe (Pain Scale 7-10) Last Admin: 12/06/22 07:21 Dose: 5 mg Documented By: SAE Pharmacy Consult (Consult Rx Perform Med Rec) 1 each MISCELLANE ONCE PRN PRN Reason: Consult order Quetiapine Fumarate (Quetiapine Fumarate 200 Mg Tablet) 200 mg PO DAILY@0000 [facility] Last Admin: 12/06/22 00:12 Dose: 200 mg Documented By: YI Rivaroxaban (Rivaroxaban 20 Mg Tablet) 20 mg PO DAILY [facility] Last Admin: 12/06/22 07:21 Dose: 20 mg Documented By: SAE Sodium Chloride (0.9 % Sodium Chloride Flush 3 Ml Syringe) 3 ml IVFLUSH QSHIFT [facility] Last Admin: 12/06/22 07:27 Dose: Not Given Documented By: SAE Non-Admin Reason: Previously Administered Trazodone HCl (Trazodone Hcl 100 Mg Tablet) 100 mg PO DAILY@0000 [facility] Last Admin: 12/06/22 00:11 Dose: 100 mg Documented By: YI Zolpidem Tartrate (Zolpidem Tartrate 5 Mg Tablet) 10 mg PO DAILY@0000 PRN PRN Reason: insomnia Last Admin: 12/06/22 00:11 Dose: 10 mg Documented By: YI Labs 12/05/22 05:47 12/04/22 05:38 Microbiology Microbiology Results: Microbiology 12/03/22 22:40 Blood Culture - Preliminary Blood - Venous No growth after 48 hours. 12/03/22 22:32 Blood Culture - Preliminary Blood - Venous No growth after 48 hours. Assessment and Plan (1) Acute and chronic respiratory failure with hypoxia: Status: Acute (2) Atrial fibrillation: Status: Acute (3) COPD exacerbation: Status: Acute Plan This is a 62-year-old male with pertinent history of chronic hypoxemic respiratory failure due to COPD on 3 L supplemental oxygen, paroxysmal atrial fibrillation on Xarelto, mixed hyperlipidemia, mood disorder who presents to the emergency department for evaluation of dyspnea. #? Acute on chronic hypoxemic respiratory failure due to acute exacerbation of COPD, probably precipitated by bronchitis -Continue IV steroid, bronchodilators by Neb, empiric Azithromycin, continue chronic Supplemental O2 , Pulmonary consult in am if not better, repeat CXR today #. Reactive leukocytosis--likely from chronic steroid use, better #.? Paroxysmal atrial fibrillation on Xarelto.? Cardizem and metoprolol for rate control #.? Mood disorder.? Continue home mood stabilizers #.? Mixed hyperlipidemia: On statin DVT prophylaxis:? On Xarelto Full code Cardiac diet Need for inpatient: Acute hypoxic resp failure d/t copd being treated with IV steroid, and monitoring for response, close moniotoring of hypoxia Time Spent With Patient Time: Total time managing care of this patient today ____ minutes. Quality Stroke Does the patient have a stroke diagnosis?: No VTE Prior VTE?: No VTE Risk Level:: Medical - moderate - high VTE Device Contraindication: Treatment Not Indicated VTE Drug Contraindication: N/A - Med Ordered
[2022-12-06] MEDS: 0.9 % Sodium Chloride Flush 3 ML SYRINGE IVFLUSH ×2 (14:41→19:44)
[2022-12-06] MEDS: guaiFENesin LA 600 MG TAB.ER.12H PO (19:44)
[2022-12-07] VITALS (9 sets, daily range): BP systolic 99–117; BP diastolic 67–80; PULSE 84–100; RESP 16–22; TEMP 36–36.6; O2SAT 96–99
[2022-12-07] MEDS: Albuterol/Iprat 2.5/0.5MG 3 ML AMPUL.NEB INHALE ×4 (07:32→20:00)
[2022-12-07] MEDS: Fluticasone/Vilanterol 100/25 BLST.W.DEV 1 PUFF INHALE (07:43)
[2022-12-07] MEDS: Rivaroxaban 20 MG TABLET PO (07:49)
[2022-12-07] MEDS: LORazepam 0.5 MG TABLET PO ×4 (07:49→20:38)
[2022-12-07] MEDS: guaiFENesin LA 600 MG TAB.ER.12H PO ×2 (07:49→20:37)
[2022-12-07] MEDS: Atorvastatin Calcium 20 MG TABLET PO (07:49)
[2022-12-07] MEDS: Famotidine 20 MG TABLET 40 MG PO (07:49)
[2022-12-07] MEDS: Magnesium Oxide 400 MG TABLET PO (07:49)
[2022-12-07] MEDS: 0.9 % Sodium Chloride Flush 3 ML SYRINGE IVFLUSH ×3 (07:55→20:41)
[2022-12-07] MEDS: oxyCODONE HCl Immed Release 5 MG TABLET PO ×4 (07:55→20:37)
[2022-12-07] MEDS: Metoprolol Succinate ER 50 MG TAB.ER.24H PO ×3 (08:22→20:37)
[2022-12-07] MEDS: Benzonatate 100 MG CAPSULE PO (08:53)
--- NOTE | 2022-12-07 09:21 | P.PNIM_ITS ---
Subjective Subjective Date of Service: 12/07/22 Interval History: He's feeling better but not optimal, some residual cough Physical Exam 2 Vital Signs: Vital Signs: Last Vital Signs Temp 98 F 12/07/22 06:56 Pulse 87 12/07/22 08:00 Resp 20 12/07/22 08:00 BP 99/80 12/07/22 08:00 Pulse Ox 99 12/07/22 06:56 O2 Del Method Nasal Cannula 12/07/22 06:56 O2 Flow Rate 3 12/07/22 06:56 Oxygen Flow Rate 5 12/03/22 22:57 BMI result Body Mass Index 21.0 Const: Other: General: AO X 3, no acute distress Resp: fait wheeze CVS: S1,S2,RRR GI: +BS, NT, no distention Skin: No rash Neuro: motor grossly intact Psych: appropriate affect Objective Data Active Medications Acetaminophen (Acetaminophen 325 Mg Tablet) 650 mg PO Q6H PRN PRN Reason: Pain, Mild (Pain Scale 1-3) Last Admin: 12/04/22 03:00 Dose: 650 mg Documented By: ANAHY Albuterol/Ipratropium (Albuterol/Iprat 2.5/0.5mg 3 Ml Ampul.Neb) 3 ml INHALE RQ4H WHILE AWAKE [facility] Last Admin: 12/07/22 07:32 Dose: 3 ml Documented By: CAPRICE Albuterol/Ipratropium (Albuterol/Iprat 2.5/0.5mg 3 Ml Ampul.Neb) 3 ml INHALE Q4H PRN PRN Reason: Wheezing Last Admin: 12/04/22 17:59 Dose: 3 ml Documented By: ALECIA Atorvastatin Calcium (Atorvastatin Calcium 20 Mg Tablet) 20 mg PO DAILY [facility] Last Admin: 12/07/22 07:49 Dose: 20 mg Documented By: SHABANA Benzonatate (Benzonatate 100 Mg Capsule) 100 mg PO TID PRN PRN Reason: Cough Last Admin: 12/07/22 08:53 Dose: 100 mg Documented By: SHABANA Diltiazem HCl (Diltiazem Hcl Cd 180 Mg Cap.Er.24h) 180 mg PO DAILY [facility]; Protocol Last Admin: 12/07/22 08:22 Dose: Not Given Documented By: SHABANA Non-Admin Reason: hold per MD Lang Famotidine (Famotidine 20 Mg Tablet) 40 mg PO DAILY [facility] Last Admin: 12/07/22 07:49 Dose: 40 mg Documented By: SHABANA Fluticasone/Vilanterol (Fluticasone/Vilanterol 100/25 Blst.W.Dev) 1 puff INHALE RDAILY [facility] Last Admin: 12/07/22 07:43 Dose: 1 puff Documented By: CAPRICE Furosemide (Furosemide 40 Mg Tablet) 40 mg PO DAILY PRN; Protocol PRN Reason: edema Last Admin: 12/06/22 07:33 Dose: 40 mg Documented By: SAE Guaifenesin (Guaifenesin La 600 Mg Tab.Er.12h) 600 mg PO BID [facility] Last Admin: 12/07/22 07:49 Dose: 600 mg Documented By: SHABANA Azithromycin 500 mg/ Sodium (Chloride) 250 mls @ 125 mls/hr IV Q24H [facility] Last Infusion: 12/07/22 01:16 Dose: 0 mls/hr Documented By: ALFREDO Lorazepam (Lorazepam 0.5 Mg Tablet) 0.5 mg PO BEDTIME PRN PRN Reason: anxiety Last Admin: 12/06/22 22:35 Dose: 0.5 mg Documented By: ALFREDO Lorazepam (Lorazepam 0.5 Mg Tablet) 0.5 mg PO Q4H PRN PRN Reason: Anxiety Last Admin: 12/07/22 07:49 Dose: 0.5 mg Documented By: SHABANA Magnesium Oxide (Magnesium Oxide 400 Mg Tablet) 400 mg PO DAILY [facility] Last Admin: 12/07/22 07:49 Dose: 400 mg Documented By: SHABANA Melatonin (Melatonin 3 Mg Tablet) 6 mg PO BEDTIME PRN PRN Reason: Insomnia Metoprolol Succinate (Metoprolol Succinate Er 50 Mg Tab.Er.24h) 50 mg PO TID [facility]; Protocol Last Admin: 12/07/22 08:22 Dose: 50 mg Documented By: SHABANA Ondansetron HCl (Ondansetron Hcl 4 Mg/2 Ml Vial) 4 mg IVPUSH Q8H PRN PRN Reason: Nausea and Vomiting Oxycodone HCl (Oxycodone Hcl Immed Release 5 Mg Tablet) 5 mg PO Q4H PRN PRN Reason: Pain, Severe (Pain Scale 7-10) Last Admin: 12/07/22 07:55 Dose: 5 mg Documented By: SHABANA Pharmacy Consult (Consult Rx Perform Med Rec) 1 each MISCELLANE ONCE PRN PRN Reason: Consult order Quetiapine Fumarate (Quetiapine Fumarate 200 Mg Tablet) 200 mg PO DAILY@0000 [facility] Last Admin: 12/06/22 22:36 Dose: 200 mg Documented By: ALFREDO Rivaroxaban (Rivaroxaban 20 Mg Tablet) 20 mg PO DAILY [facility] Last Admin: 12/07/22 07:49 Dose: 20 mg Documented By: SHABANA Sodium Chloride (0.9 % Sodium Chloride Flush 3 Ml Syringe) 3 ml IVFLUSH QSHIFT [facility] Last Admin: 12/07/22 07:55 Dose: 3 ml Documented By: SHABANA Trazodone HCl (Trazodone Hcl 100 Mg Tablet) 100 mg PO DAILY@0000 [facility] Last Admin: 12/06/22 22:36 Dose: 100 mg Documented By: ALFREDO Zolpidem Tartrate (Zolpidem Tartrate 5 Mg Tablet) 10 mg PO DAILY@0000 PRN PRN Reason: insomnia Last Admin: 12/06/22 00:11 Dose: 10 mg Documented By: YI Hall 12/05/22 05:47 12/04/22 05:38 Assessment and Plan (1) Acute and chronic respiratory failure with hypoxia: Status: Acute (2) Atrial fibrillation: Status: Acute (3) COPD exacerbation: Status: Acute Plan 62-year-old male with pertinent history of chronic hypoxemic respiratory failure due to COPD on 3 L supplemental oxygen, paroxysmal atrial fibrillation on Xarelto, mixed hyperlipidemia, mood disorder who presents to the emergency department for evaluation of dyspnea and was found to have acoute on chronic hypoxic respiratory failure related to COPD #? Acute on chronic hypoxemic respiratory failure due to acute exacerbation of COPD, probably precipitated by bronchitis. He has been treated with bronchodilator by Nebubulizer, IV Corticosteroid which has been changed to oral Prednisone, empric Azithromycin for bronchitis. He has overall resoponded to treatment and should be discharge on oral Prednisone for 3 more days, then to continue resume chronic steroid at 5 mg daily. He has completed 5 days of Azithromycin and need no additonal antibiotics, initial WBC was 25K and has come down to 15 # Reactive leukocytosis--due to chronic steroid, acute bronchitis.. WBC has come down from 25K to 15 # Paroxysmal atrial fibrillation, continue Toprol and Diltiazem for rate control and Xarelto for anticoagulation and stroke prevention. # ? Mood disorder.? Continue home mood stabilizers # ? Mixed hyperlipidemia: On statin #. Chronic pain, oxycodone for few days until he sees PCP Ancipated discharge on 12/08/22, discussed with the patient DVT prophylaxis:? On Xarelto Full code Cardiac diet Need for inpatient: Acute hypoxic resp failure d/t copd being treated with IV steroid, and monitoring for response, close moniotoring of hypoxia Time Spent With Patient Time: Total time managing care of this patient today ____ minutes. Quality Stroke Does the patient have a stroke diagnosis?: No VTE Prior VTE?: No VTE Risk Level:: Medical - moderate - high VTE Device Contraindication: Treatment Not Indicated VTE Drug Contraindication: N/A - Med Ordered
--- NOTE | 2022-12-07 11:22 | MHC.CM.PN ---
PER MD ROUNDS, PT LIKELY TO DC TOMORROW DCP: HOME WITH RESUMPTION OF [facility] SERVICES VIA BLS TRANSPORT
[2022-12-07] MEDS: Azithromycin 500 MG in 0.9 % Sodium Chloride 250 ML 125 MG IV (23:05)
[2022-12-08] MEDS: traZODone HCL 100 MG TABLET PO (00:25)
[2022-12-08] MEDS: QUEtiapine Fumarate 200 MG TABLET PO (00:25)
[2022-12-08] MEDS: Zolpidem Tartrate 5 MG TABLET 10 MG PO (01:28)
[2022-12-08] MEDS: oxyCODONE HCl Immed Release 5 MG TABLET PO ×3 (01:31→13:13)
[2022-12-08 03:43] VITALS: BP 141/68; PULSE 86; RESP 16; TEMP 36.2; O2SAT 98
[2022-12-08 07:50] VITALS: BP 107/74; PULSE 91; RESP 18; TEMP 36.1; O2SAT 99
[2022-12-08] MEDS: Albuterol/Iprat 2.5/0.5MG 3 ML AMPUL.NEB INHALE (08:04)
[2022-12-08] MEDS: Fluticasone/Vilanterol 100/25 BLST.W.DEV 1 PUFF INHALE (08:04)
[2022-12-08 08:05] VITALS: PULSE 94; RESP 18; O2SAT 92
[2022-12-08] MEDS: 0.9 % Sodium Chloride Flush 3 ML SYRINGE IVFLUSH (08:35)
[2022-12-08] MEDS: dilTIAZem HCL CD 180 MG CAP.ER.24H PO (08:35)
[2022-12-08] MEDS: Magnesium Oxide 400 MG TABLET PO (08:35)
[2022-12-08] MEDS: LORazepam 0.5 MG TABLET PO ×2 (08:36→13:13)
[2022-12-08] MEDS: Rivaroxaban 20 MG TABLET PO (08:36)
[2022-12-08] MEDS: Famotidine 20 MG TABLET 40 MG PO (08:36)
[2022-12-08] MEDS: Atorvastatin Calcium 20 MG TABLET PO (08:36)
[2022-12-08] MEDS: guaiFENesin LA 600 MG TAB.ER.12H PO (08:36)
[2022-12-08] MEDS: Metoprolol Succinate ER 50 MG TAB.ER.24H PO (08:36)
[2022-12-08 10:35] VITALS: PULSE 92; O2SAT 97
--- NOTE | 2022-12-08 12:18 | W.MHC.F2F ---
Service Date Service Date: 12/08/22 Encounter Date of encounter: 12/08/22 Encounter: COPD exacerbation, chronic back pain. Reasons for Services Signs and symptoms assessed: Monitor her shortness of breath or any new symptoms Reason for long-term: medication management, medication treatment and teach disease management Reason for physical therapy: home safety and mobility, therapeutic exercises, restore joint function, gait/transfer training, assess need for DME, ADL training, energy conservation and other MD Overseeing Care: Olu Rawls Homebound: Leaving the home is medically contraindicated at this time without the asist of a device and/or another person due th the listed conditions above and below. Reason homebound: weakness related to hospital stay Homebound supporting statement: Patient is generalized weak and needed help to go to appointments, also need PT. Certification: Based on the above findings, I certify that this patient is confined to the home and needs intermittent long-term care, physical therapy and/or speech therapy, or continues to need occupational therapy. The patient is under my care, and I have initiated the establishment of the plan of care. The patient will be followed by a physician who will periodically review the plan of care. Time Spent With Patient Time: Total time managing care of this patient today ____ minutes.
--- NOTE | 2022-12-08 13:53 | PM.DS ---
DS: Providers Provider Date of Service: 12/08/22 Date of admission: 12/04/22 00:04 Date of discharge: 12/08/22 Primary care physician: Olu Rawls MD Attending physician on discharge: Lex Conner Discharging clinician: Lex Conner DS: Diagnosis Discharge Diagnosis (1) Acute and chronic respiratory failure with hypoxia: Status: Acute (2) Atrial fibrillation: Status: Acute (3) COPD exacerbation: Status: Acute DS: Summary Hospital Course Hospital Course: HPI: 62-year-old male with pertinent history of chronic hypoxemic respiratory failure due to COPD on 3 L supplemental oxygen, paroxysmal atrial fibrillation on Xarelto, mixed hyperlipidemia, mood disorder who presents to the emergency department for evaluation of dyspnea. Patient states he has been having dyspnea of associated with wheezing for the last 2-3 days.? It worsened on the day of presentation.? Patient tried home inhaler but no use.? Patient states he was having dyspnea in spite of using his supplemental baseline 3 L oxygen.? No fevers or chills.? No cough.? Patient denies chest discomfort, palpitations, abdominal pain, changes in urinary bowel or bowel habits. ? In the emergency department, patient requiring 5 L supplemental oxygen. Hopsital course and plan: Patient admitted for sob -Acute on chronic hypoxemic respiratory failure due to acute exacerbation of COPD-treated with nebs ,steriods ,antibiotics -with above management patient seems feeling better ,near his baseline -subsequently IV steroid changed to Prednisone 20 mg daily for 3 more day, then go back to 5 mg daily as usual. You have completed 5 days of antibitiocs with Azithromycin for bronchitis, continue all other medication, and follow up with primary care provider in a week. seen by pt-added home with vna/pt. Patient has chronic back pain: Says that his oxycodone prescription finished due to extra use at home due to pain. Given limited supply of oxycodone and further management outpatient as per PCP. Patient was strongly advised to avoid excessive use, hold for sedation. Above management discussed with patient detail length he understand and in agreement with above plan, time spent 50 minute. Time Spent with Patient Time attestation: Total time managing care of this patient today ____ minutes. Discharge coordination time: Greater than 30 minutes Quality: Safe Use of Opioids Does Pt have an Active Cancer Diagnosis on the Problem List?: No Quality: Stroke Does the patient have a stroke diagnosis?: No Physical Exam Vital Signs: Vital Signs: Last Vital Signs Temp 97.0 F 12/08/22 07:50 Pulse 92 12/08/22 10:35 Resp 18 12/08/22 08:05 BP 107/74 12/08/22 07:50 Pulse Ox 97 12/08/22 10:35 O2 Del Method Nasal Cannula 12/08/22 07:50 O2 Flow Rate 3 12/08/22 07:50 Oxygen Flow Rate 5 12/03/22 22:57 BMI result Body Mass Index 21.0 Appearance: Alert.? Oriented X3.? not in distress.? cvs: rrr, [id number] . res: clear to auscultation ,no rhonchii or wheezing abd: no rebound or guarding ,nt, bs present. ext pulses present , no cyanosis . neuro: axo3 , nonfocal. DS: Data Data Completed and Pending Labs on day of discharge: Preliminary micro results at discharge 12/03/22 22:40 Blood Culture - Preliminary Blood - Venous No growth after 48 hours. 12/03/22 22:32 Blood Culture - Preliminary Blood - Venous No growth after 48 hours. Imaging Chest x-ray: Radiologist's impression: ITS Impressions Chest X-Ray 12/03/22 23:14 IMPRESSION: Low lung volumes and severe emphysematous change. Question left lung bronchial wall thickening versus low lung volumes. Chest X-Ray 12/06/22 09:01 IMPRESSION: Severe emphysematous changes of the right lung. Increased coarse lung markings on the left similar to previous exams. No evidence for acute disease in the chest. Discharge Plan Discharge Anticipated Discharge Date/Time: 12/08/22 09:30 Patient Disposition: Home Health Service Discharge Diagnosis: Acute on chronic hypoxic respiratory failure, copd exacerbation Referrals: [facility] [Other] - 1 Week Olu Rawls MD [Primary Care Provider] - 1 Week Discharge Medications: New prednisone 20 mg tablet 20 mg PO DAILY Qty: 3 0RF docusate sodium [Colace] 100 mg capsule 100 mg PO BID PRN (Reason: constipation) Qty: 30 0RF Continued ipratropium-albuterol 0.5 mg-3 mg(2.5 mg base)/3 mL solution for nebulization 3 ml inhalation Q6H PRN (Reason: shortness of breath or wheezing) 90 Days Qty: 1080 8RF metoprolol succinate 100 mg tablet extended release 24 hr 50 mg PO TID Qty: 90 8RF albuterol sulfate 90 mcg/actuation HFA aerosol inhaler 2 puff inhalation Q6H PRN (Reason: bronchospasm) Qty: 8.5 8RF furosemide 20 mg tablet 40 mg PO DAILY PRN (Reason: edema) Qty: 180 3RF famotidine 40 mg tablet 40 mg PO DAILY Qty: 90 8RF (DME) compr.stocking,knee,long,x-lrg Misc See Rx Instructions .Route Qty: 2 0RF Rx Instructions: As directed fluticasone propion-salmeterol [Wixela Inhub] 250-50 mcg/dose blister with device 1 ea PO BID Qty: 180 0RF diltiazem HCl 180 mg capsule,extended release 24hr 180 mg PO DAILY Qty: 120 5RF Xarelto 20 mg tablet 20 mg PO DAILY Qty: 90 4RF Rx Instructions: Must call and make a cardiology appt simvastatin 40 mg tablet 40 mg PO DAILY magnesium oxide 400 mg (241.3 mg magnesium) tablet 400 mg PO DAILY lorazepam 0.5 mg tablet 0.5 mg PO BEDTIME PRN (Reason: anxiety) quetiapine 200 mg tablet 200 mg PO DAILY@0000 Rx Instructions: PATIENT REQUESTED TO TAKE AFTER MIDNIGHT trazodone 100 mg tablet 100 mg PO DAILY@0000 Rx Instructions: PATIENT REQUESTED TO TAKE AFTER MIDNIGHT zolpidem 10 mg tablet 10 mg PO DAILY@0000 PRN (Reason: insomnia) Rx Instructions: PATIENT REQUESTED TO TAKE AFTER MIDNIGHT oxycodone 5 mg tablet 5 mg PO Q4-6H PRN (Reason: pain) 28 Days Qty: 10 0RF Held prednisone 5 mg tablet 5 mg PO DAILY Qty: 30 0RF Hold Instructions: Resume on 12/12/22. Discharge Orders: Discharge Order (Routine); Ordered 12/08/22 Ordered By: Lex Conner Diet: Advance to usual diet Activity on Discharge: As tolerated Stand Alone Forms: Patient Portal Discharge page Care Plan Goals: Full reocvery from copd and acute respiratory failure Health Concerns: copd exacerbation Plan of Treatment: You were treated for exacerbation of copd with bronchodilaros by Nebulizer, IV steroid that have been changed to Prednisone 20 mg daily for 3 more day, then go back to 5 mg daily as usual. You have completed 5 days of antibitiocs with Azithromycin for bronchitis, continue all other medication, and follow up with primary care provider in a week, call for appointment Assessment: as above
[2022-12-08 13:54] VITALS: BP 128/73; PULSE 91; RESP 19
== END 2022-12-08 15:36 | disposition home health service (06) | DRG 192 ==
LOC: HO.ED 12-04 00:05 → HO.EDOVER 12-04 00:07 → HO.S3 12-04 09:31
PROVIDERS: Internal Medicine; Admitting Provider Student in an Organized Health Care Education/Training Program; Emergency Provider Internal Medicine; PCP Internal Medicine; Visit Provider Internal Medicine
DX: J44.0 Chronic obstructive pulmonary disease with (acute) lower respiratory infection (principal); J44.1 Chronic obstructive pulmonary disease with (acute) exacerbation; J20.9 Acute bronchitis, unspecified; E78.2 Mixed hyperlipidemia; F39 Unspecified mood [affective] disorder; I48.0 Paroxysmal atrial fibrillation; Z20.822 Contact with and (suspected) exposure to COVID-19; Z99.81 Dependence on supplemental oxygen; Z87.891 Personal history of nicotine dependence; Z79.01 Long term (current) use of anticoagulants; Z79.51 Long term (current) use of inhaled steroids; Z79.899 Other long term (current) drug therapy
CPT/HCPCS: 36415; 71045; 71046; 80048; 80053; 83605; 83735; 83880; 84484; 85025; 85027; 85610; 87040; 87635; 93005; 94640; 97162; 99285; J0456; J0696; J2920

== ENCOUNTER 2022-12-09 22:12 | Emergency (ER) | payer MEDICARE, SELFPAY ==
--- NOTE | 2022-12-09 | ECG_ITS ---
Test Reason : DYSPENA Blood Pressure : / mmHG Vent. Rate : 071 BPM Atrial Rate : 000 BPM P-R Int : 000 ms QRS Dur : 084 ms QT Int : 392 ms P-R-T Axes : 000 247 060 degrees QTc Int : 425 ms Atrial fibrillation with a competing junctional pacemaker Right superior axis deviation Pulmonary disease pattern Right ventricular hypertrophy with repolarization abnormality Abnormal ECG When compared with ECG of 03-DEC-2022 22:57, Criteria for Septal infarct are no longer Present Referred By: Generic ED Physician Electronically Signed By:ENRIQUETA WATTS MD
--- NOTE | ~2022-12-09 | XR_ITS ---
EXAMINATION: XR CHEST CLINICAL INFORMATION: Shortness of breath COMPARISON: 12/06/2022 TECHNIQUE: Frontal view of the chest was obtained. FINDINGS: Severe emphysema, worse in the right lung. Chronic background interstitial prominence. No discrete consolidation. No pleural effusion or pneumothorax. Normal heart size and pulmonary vascularity. XR/XR chest 1V IMPRESSION: * No acute findings. * Severe emphysema.
[2022-12-09 22:26] VITALS: BP 122/87; BP 129/70; PULSE 81; PULSE 82; RESP 16; TEMP 37.1; O2SAT 96; O2SAT 97; BMI 21.4
--- NOTE | 2022-12-09 23:16 | MHC.EDTECH ---
pt ekg taken and was read by provider .
--- NOTE | 2022-12-09 23:24 | ED.SOB ---
HPI - SOB/Dyspnea General Chief Complaint: Dyspnea Stated Complaint: SOB WEAKNESS MILD WHEEZING Time Seen by Provider: 12/09/22 23:19 Source: patient Limitations: no limitations History of Present Illness HPI Narrative: 62-year-old male with pertinent history of chronic hypoxemic respiratory failure due to COPD on 3 L supplemental oxygen, paroxysmal atrial fibrillation on Xarelto, mixed hyperlipidemia, mood disorder frequently get admitted to our hospital does discharge yesterday after 5 days of stay for shortness of on prednisone diagnosed as COPD exacerbation patient comes back as still feeling short of breath saturating 96% on 3 L speaking full sentences no fever does have chronic cough with mucoid phlegm no chest pain or palpitation Related Data Home Medications Medication Instructions Recorded Confirmed lorazepam 0.5 mg tablet 0.5 mg PO BEDTIME PRN anxiety 09/07/22 12/04/22 magnesium oxide 400 mg (241.3 mg 400 mg PO DAILY 09/07/22 12/04/22 magnesium) tablet simvastatin 40 mg tablet 40 mg PO DAILY 09/07/22 12/04/22 quetiapine 200 mg tablet 200 mg PO DAILY@0000 12/04/22 12/04/22 trazodone 100 mg tablet 100 mg PO DAILY@0000 12/04/22 12/04/22 zolpidem 10 mg tablet 10 mg PO DAILY@0000 PRN insomnia 12/04/22 12/04/22 Previous Rx's Medication Instructions Recorded ipratropium 0.5 mg-albuterol 3 mg 3 ml inhalation Q6H PRN shortness 02/09/22 (2.5 mg base)/3 mL nebulization of breath or wheezing 90 days soln #1,080 mL metoprolol succinate 100 mg 50 mg PO TID #90 tabs 06/13/22 tablet,extended release 24 hr albuterol sulfate 90 mcg/actuation 2 puff inhalation Q6H PRN 09/03/22 aerosol inhaler bronchospasm #8.5 grams famotidine 40 mg tablet 40 mg PO DAILY #90 tabs 09/27/22 furosemide 20 mg tablet 40 mg PO DAILY PRN edema #180 tabs 09/27/22 compr.stocking,knee,long,x-lrg #2 ea 09/29/22 fluticasone 250 mcg-salmeterol 50 1 ea PO BID #180 ea 10/13/22 mcg/dose blistr powdr for inhalation (Wixela Inhub) diltiazem HCl 180 mg 180 mg PO DAILY #120 caps 11/06/22 capsule,extended release 24 hr rivaroxaban 20 mg tablet (Xarelto) 20 mg PO DAILY #90 tabs 11/06/22 prednisone 5 mg tablet 5 mg PO DAILY #30 tabs 11/16/22 prednisone 20 mg tablet 20 mg PO DAILY #3 tabs 12/07/22 docusate sodium 100 mg capsule 100 mg PO BID PRN constipation #30 12/08/22 (Colace) caps oxycodone 5 mg tablet 5 mg PO Q4-6H PRN pain 28 days #10 12/08/22 tabs Allergies Allergy/AdvReac Type Severity Reaction Status Date / Time No Known Allergies Allergy Verified 11/06/22 09:46 Review of Systems Review of Systems: Yes all other systems are reviewed and are negative [facility] Past Medical History Medical History Allergic rhinitis Back pain Chronic respiratory failure with hypoxia COPD (chronic obstructive pulmonary disease) COVID-19 vaccine series completed Dependence on continuous supplemental oxygen Elevated cholesterol History of cardioversion HTN (hypertension) Hypoxemia On anticoagulant therapy Persistent atrial fibrillation Surgical History H/O colonoscopy History of back surgery History of esophagogastroduodenoscopy (EGD) Family History Family History Father No problems noted. Mother No problems noted. Father No problems noted. Mother No problems noted. Social History Social History Household Members: None Housing: Apartment Are you a primary child day care center worker to a significant other at home: No Do you presently have visiting nurse or other home services: No Alcohol intake: never Patient Tobacco Use Status: Former Tobacco user Quit Date: 2000 Tobacco use type: Cigarette Smoked in Last 30 Days: No e-Cigarette/Vaping Use: Never Used Second Hand Smoke Exposure: No Use of substances other than those prescribed or required for medical reasons: No Advance Directives: No Advance Directives Information Provided: Yes service: No Current occupational status: disabled Cognitive needs: No Hearing needs: No Vision needs: Yes Physical Exam Vital Signs: Vital Signs: Last Vital Signs Temp 98.2 F 12/10/22 06:18 Pulse 78 12/10/22 06:18 Resp 12 12/10/22 06:18 BP 119/74 12/10/22 06:18 Pulse Ox 98 12/10/22 06:18 O2 Del Method Nasal Cannula 12/10/22 06:18 O2 Flow Rate 3 12/10/22 06:18 Oxygen Flow Rate 3 12/09/22 22:26 BMI result Body Mass Index 21.4 Appearance: Alert. Oriented X3. No acute distress. ENT: Pharynx normal. Oral Mucosa moist Neck: Normal inspection. Neck supple. CVS: Normal heart rate irregularly irregular rhythm no murmur Pulses normal. Respiratory: Mild respiratory distress. Equal air entry bilateral, bilateral wheezing and coarse crackles Abdomen: Soft and nontender. Bowel sounds are present, no mass palpable, no CVA tenderness Skin: Skin warm and dry. Normal skin color. Normal skin turgor. Extremities: Trace lower extremity edema. No calf tenderness Neuro: Oriented X 3. No motor deficit. No sensory deficit.No cerebellar signs , cranial nerves II-XII intact Medications Administered Discontinued Medications Generic Name Dose Route Start Last Admin Trade Name Freq PRN Reason Stop Dose Admin Albuterol Sulfate 2.5 mg/ 0 mg 12/09/22 23:41 12/10/22 00:00 Albuterol/Ipratropium 3 ml INHALE 12/09/22 23:42 1 each ONCE ONE Administration Medical Decision Making Medical Decision Making [facility] Narrative: Patient's COPD home on home oxygen with stable labs and stable chest x-ray saturating 96% on 3 L will discharge patient back to home advised to continue his nebulized treatment and follow up with VNA at home Lab Data [facility] Lab Attestation statement: I reviewed the patient's lab results. 12/09/22 23:26 12/09/22 23:26 Labs: Lab Results 12/09/22 12/09/22 Range/Units 23:26 23:26 WBC 15.7 H (4.8-10.8) X10*3/uL RBC 3.94 L (4.60-5.80) X10*6/uL Hgb 12.7 L (14.0-18.0) g/dl Hct 38.8 L (42.0-52.0) % MCV 98.5 H (80.0-98.0) fL MCH 32.2 (27.0-33.0) pg MCHC 32.7 (31.0-36.0) g/dl RDW 13.1 (11.0-16.0) % Plt Count 265 (160-400) X10*3/uL MPV 9.0 L (9.4-12.4) fL Immature Gran % (Auto) 1.1 H (0.0-0.4) % Neut % (Auto) 75.4 H (45-73) % Lymph % (Auto) 13.8 L (20-40) % [place] % (Auto) 6.8 (2-11) % Eos % (Auto) 2.5 (0-4) % Baso % (Auto) 0.4 (0-2) % Lymph # (Auto) 2.2 (1.2-4.9) X10*3/uL [place] # (Auto) 1.1 (0.1-1.2) X10*3/uL Eos # (Auto) 0.4 (0.0-0.4) X10*3/uL Baso # (Auto) 0.1 (0.0-0.2) X10*3/uL Abs Immat Gran (auto) 0.17 H (0.00-0.03) X10*3/uL Absolute Neuts (auto) 11.9 H (2.0-8.3) x10*3/uL Absolute Nucleated RBC 0.000 (0.0-0.012) X10*3/uL Nucleated RBC % (auto) 0.0 (0.0-0.2) /100WBC Sodium 134 L (135-145) mmol/L Potassium 4.0 (3.3-5.1) mmol/L Chloride 94 L (96-108) mmol/L Carbon Dioxide 33 H (22-29) mmol/L Anion Gap 11 L (12-20) BUN 8 L (9-16) mg/dL Creatinine 0.62 (0.5-1.4) mg/dL Estim Creat Clear Calc 111.9 Estimated GFR > 60 Random Glucose 113 (60-115) mg/dL Calcium 9.7 (8.4-10.2) mg/dL Total Bilirubin 1.8 H (0.0-1.0) mg/dL AST 17 (5-37) U/L ALT 21 (0-40) U/L Alkaline Phosphatase 65 (39-117) U/L Total Protein 6.6 (6.5-8.0) g/dL Albumin 4.0 (3.5-5.0) g/dL Independent Interpretation I performed an independent interpretation of an: EKG Interpretation: Atrial fibrillation with ventricular rate of 71 beats per minute no acute ST-T changes no acute ischemia Discharge Plan Discharge Clinical Impression: COPD (chronic obstructive pulmonary disease) Patient Disposition: Home, Self-Care Instructions: COPD (Chronic Obstructive Pulmonary Disease) (ED) Additional Instructions: Continue nebulizing treatment every 4 hours as advised along with prednisone and oxygen and follow-up with PCP Prescriptions: No Action ipratropium-albuterol 0.5 mg-3 mg(2.5 mg base)/3 mL solution for nebulization 3 ml inhalation Q6H PRN (Reason: shortness of breath or wheezing) 90 Days Qty: 1080 8RF metoprolol succinate 100 mg tablet extended release 24 hr 50 mg PO TID Qty: 90 8RF albuterol sulfate 90 mcg/actuation HFA aerosol inhaler 2 puff inhalation Q6H PRN (Reason: bronchospasm) Qty: 8.5 8RF furosemide 20 mg tablet 40 mg PO DAILY PRN (Reason: edema) Qty: 180 3RF famotidine 40 mg tablet 40 mg PO DAILY Qty: 90 8RF (DME) compr.stocking,knee,long,x-lrg Misc See Rx Instructions .Route Qty: 2 0RF Rx Instructions: As directed fluticasone propion-salmeterol [Wixela Inhub] 250-50 mcg/dose blister with device 1 ea PO BID Qty: 180 0RF diltiazem HCl 180 mg capsule,extended release 24hr 180 mg PO DAILY Qty: 120 5RF Xarelto 20 mg tablet 20 mg PO DAILY Qty: 90 4RF Rx Instructions: Must call and make a cardiology appt prednisone 5 mg tablet 5 mg PO DAILY Qty: 30 0RF Hold Instructions: Resume on 12/12/22. simvastatin 40 mg tablet 40 mg PO DAILY magnesium oxide 400 mg (241.3 mg magnesium) tablet 400 mg PO DAILY lorazepam 0.5 mg tablet 0.5 mg PO BEDTIME PRN (Reason: anxiety) quetiapine 200 mg tablet 200 mg PO DAILY@0000 Rx Instructions: PATIENT REQUESTED TO TAKE AFTER MIDNIGHT trazodone 100 mg tablet 100 mg PO DAILY@0000 Rx Instructions: PATIENT REQUESTED TO TAKE AFTER MIDNIGHT zolpidem 10 mg tablet 10 mg PO DAILY@0000 PRN (Reason: insomnia) Rx Instructions: PATIENT REQUESTED TO TAKE AFTER MIDNIGHT prednisone 20 mg tablet 20 mg PO DAILY Qty: 3 0RF oxycodone 5 mg tablet 5 mg PO Q4-6H PRN (Reason: pain) 28 Days Qty: 10 0RF docusate sodium [Colace] 100 mg capsule 100 mg PO BID PRN (Reason: constipation) Qty: 30 0RF Interventions: ED Discharge Assessment Last Done: 12/10/22 06:55
[2022-12-09 23:31] LABS: Basophils Absolute Auto 0.1 X10*3/uL (0.0-0.2); Basophils Percent Auto 0.4 % (0-2); Eosinophils Absolute Auto 0.4 X10*3/uL (0.0-0.4); Eosinophils Percent Auto 2.5 % (0-4); Hematocrit 38.8 % (42.0-52.0); Hemoglobin 12.7 g/dl (14.0-18.0); Imm Gran Abs Auto 0.17 X10*3/uL (0.00-0.03); Imm Gran Pct Auto 1.1 % (0.0-0.4); Lymphocytes Absolute Auto 2.2 X10*3/uL (1.2-4.9); Lymphocytes Percent Auto 13.8 % (20-40); MANUAL DIFF FLAG NO; Mean Corpuscular HGB Conc 32.7 g/dl (31.0-36.0); Mean Corpuscular Hemoglobin 32.2 pg (27.0-33.0); Mean Corpuscular Volume 98.5 fL (80.0-98.0); Monocytes Absolute Auto 1.1 X10*3/uL (0.1-1.2); Monocytes Percent Auto 6.8 % (2-11); Neutrophils Absolute Auto 11.9 x10*3/uL (2.0-8.3); Neutrophils Percent Auto 75.4 % (45-73); Platelet Count 265 X10*3/uL (160-400); Red Blood Count 3.94 X10*6/uL (4.60-5.80); Red Cell Distribution Width 13.1 % (11.0-16.0); White Blood Count 15.7 X10*3/uL (4.8-10.8)
[2022-12-09 23:53] LABS: Alanine Aminotransferase 21 U/L (0-40); Alkaline Phosphatase 65 U/L (39-117); Anion Gap 11 (12-20); Aspartate Amino Transferase 17 U/L (5-37); Bilirubin Total 1.8 mg/dL (0.0-1.0); Blood Urea Nitrogen 8 mg/dL (9-16); Calcium 9.7 mg/dL (8.4-10.2); Carbon Dioxide 33 mmol/L (22-29); Chloride 94 mmol/L (96-108); Creatinine Clr Calc Pharmacy 111.9; Estimated Glomerular Filt Rate > 60; Glucose Random 113 mg/dL (60-115); Sodium 134 mmol/L (135-145); Total Protein 6.6 g/dL (6.5-8.0)
[2022-12-10 00:02] VITALS: PULSE 77; RESP 16; O2SAT 94
--- NOTE | 2022-12-10 00:06 | PC.NURSE ---
resp in with pt
[2022-12-10 00:07] VITALS: BP 119/81; PULSE 84; RESP 12; O2SAT 90
[2022-12-10 01:06] VITALS: O2SAT 98
--- NOTE | 2022-12-10 02:11 | MHC.EDTECH ---
call out to [place] for transport, eta is for 0700
--- NOTE | 2022-12-10 02:24 | PC.NURSE ---
[facility] have a ride home until [address]. Dr. benitez
[2022-12-10 02:25] VITALS: BP 131/71; PULSE 86; RESP 18; TEMP 36.5; O2SAT 94
[2022-12-10 04:31] VITALS: BP 108/75; PULSE 73; RESP 12; O2SAT 98
[2022-12-10 06:18] VITALS: BP 119/74; PULSE 78; RESP 12; TEMP 36.8; O2SAT 98
== END 2022-12-10 07:54 | disposition home or self-care (01) ==
PROVIDERS: Emergency Provider Internal Medicine; PCP Internal Medicine
DX: J44.9 Chronic obstructive pulmonary disease, unspecified (principal); R06.00 Dyspnea, unspecified; I48.91 Unspecified atrial fibrillation; E78.2 Mixed hyperlipidemia; Z79.01 Long term (current) use of anticoagulants
CPT/HCPCS: 36415; 71045; 80053; 85025; 93005; 94640; 99284; 99285

== ENCOUNTER 2023-01-08 08:32 | Outpatient (AMB) | payer MEDICARE, SELFPAY ==
--- NOTE | 2023-01-08 08:30 | MHC.PC.OV ---
Intake Visit Reasons: Med Management Intake Note: Patient is here to follow up on med management. Vocal Music Instructor Required: No Retirement Benefits Specialist: Not Required per policy Accompanied by: Self / Same As Patient Allergies No Known Allergies Allergy (Verified 01/08/23 08:30) Tobacco use date assessed: 01/08/23 Fall risk assessment: No Falls in past year Last assessed Fall Risk: 01/08/23 Dental Screening Dental Screen Date: 01/08/23 Did you have a dental visit in the last 12 months?: Yes Did you have a dental problem in the last 6 months where you did not have access to dental care?: No Was dental information given to patient?: Patient has dentist HPI Med Management HPI Details F/U chronic back pain; doinhg well; compliant [facility] Medical History Allergic rhinitis Back pain Chronic respiratory failure with hypoxia COPD (chronic obstructive pulmonary disease) COVID-19 vaccine series completed Dependence on continuous supplemental oxygen Elevated cholesterol History of cardioversion HTN (hypertension) Hypoxemia On anticoagulant therapy Persistent atrial fibrillation Surgical History H/O colonoscopy History of back surgery History of esophagogastroduodenoscopy (EGD) Family History Father No problems noted. Mother No problems noted. Father No problems noted. Mother No problems noted. Social History Household Members: None Housing: Apartment Are you a primary rental boats caretaker to a significant other at home: No Do you presently have visiting nurse or other home services: No Alcohol intake: never Patient Tobacco Use Status: Former Tobacco user Quit Date: 2000 Tobacco use type: Cigarette e-Cigarette/Vaping Use: Never Used Second Hand Smoke Exposure: No service: No Current occupational status: disabled Cognitive needs: No Hearing needs: No Vision needs: Yes Questionnaire Thrive Questionnaire Date Thrive assessed: 09/18/22 FERNANDO-7 AMB Questionnaire FERNANDO-7 Date FERNANDO - 7 assessed: 09/18/22 Source: Developed by Drs. Jaime Dykes, Angélica Foley, Oren Burns and colleagues, with an educational na from [employer]. Review of Systems Const Denies chills, Denies headache(s) and Denies weight loss ENT Denies headache(s) Card Denies chest pain, Denies syncope, Denies irregular heart rhythm and Denies dyspnea Resp Denies chest congestion, Denies cough and Denies dyspnea GI Denies abdominal pain, Denies change in stool character, Denies nausea and Denies vomiting Musc Denies deformity and Denies joint swelling Neuro Denies syncope and Denies headache(s) Physical exam (Primary Care) Tobacco/Smoking Status: Tobacco use Status Tobacco use date assessed 01/08/23 01/08/23 08:32 Patient Tobacco Use Status Former Tobacco user 01/08/23 08:32 Tobacco use type Cigarette 01/08/23 08:32 e-Cigarette/Vaping Use Never Used 01/08/23 08:32 Thrive Assessment: Date of Thrive Assessment Date Thrive assessed 09/18/22 01/08/23 08:32 Telehealth Telehealth Location of provider rendering services: practice address Location of patient: address on file Patient Identification confirmed using: Name, : Yes Telehealth method: voice only Patient verbally consented to treatment: Yes Patient verbally consented to billing insurance company: Yes Patient informed of any privacy concerns related to visit: Yes Minutes spent on Phone/Video with Pt.: 15 (telephone) Assessment and Plan Assessment & Plan (1) Back pain: Code(s): M54.9 - Dorsalgia, unspecified Plan: stable; same rx Medications: Refilled oxycodone 5 mg PO Q4-6H PRN 140 tabs 0RF pain 28 days M54.9 - Dorsalgia, unspecified Discontinued quetiapine 200 mg PO BEDTIME 30 tabs 6RF zolpidem 10 mg PO BEDTIME PRN 30 tabs 5RF insomnia trazodone 100 mg PO BEDTIME 90 tabs 8RF Coding Level of Care Code Tele Est Pt Level 3 (55586) Diagnoses Back pain M54.9
== END 2023-01-08 09:18 | disposition home or self-care (01) ==
LOC: HO.HMGH 08:32
PROVIDERS: PCP Internal Medicine; Visit Provider Internal Medicine
DX: M54.9 Dorsalgia, unspecified (principal)
CPT/HCPCS: G2252

== ENCOUNTER 2023-01-19 10:17 | Inpatient (IN) | payer MEDICARE, SELFPAY ==
[2023-01-19] VITALS (8 sets, daily range): BP systolic 100–129; BP diastolic 65–82; PULSE 97–113; RESP 14–20; TEMP 35.9–37.2; O2SAT 3–98; BMI 17.3
--- NOTE | ~2023-01-19 | XR_ITS ---
EXAMINATION: XR CHEST CLINICAL INFORMATION: Shortness of breath and weakness. COMPARISON: Chest radiograph dated 12/09/2022, chest CT scan dated 09/07/2022. TECHNIQUE: 2 views of the chest were obtained. FINDINGS: Known emphysema is seen, right greater than left. Mild increased hazy opacification is seen in the right upper lung. The heart and mediastinal structures are unremarkable. XR/XR chest 2V IMPRESSION: 1. Mild increased hazy opacification in the right upper lung may be projectional representing soft tissue attenuation. A developing infiltrate cannot be excluded. 2. Known severe emphysema.
--- NOTE | 2023-01-19 10:42 | ED.GENADULT ---
HPI - General Adult General Chief complaint: Dyspnea Stated complaint: OPD EXACERBATION,SOB,PEDAL EDEMA PER EMS Time Seen by Provider: 01/19/23 10:27 Source: patient, EMS and RN notes reviewed Mode of arrival: EMS Limitations: no limitations History of Present Illness HPI narrative: Patient is a 62-year-old male with history of history of chronic hypoxemic respiratory failure due to COPD on 3 L supplemental oxygen, paroxysmal atrial fibrillation on Xarelto, mixed hyperlipidemia, HTN, mood disorder presenting to the emergency department with complaint of worsening shortness of breath over the past few days as well as generalized weakness and pedal edema. Also complaining of sores/discoloration to tongue. States he usually rinses his mouth out after using his inhalers. Denies any fevers. Denies cough, sore throat, ear pain. Denies any abdominal pain, nausea, vomiting, diarrhea, or constipation. Denies any dysuria or other urinary symptoms. MD complaint: shortness of breath Onset (ago): day(s) Location: chest Relieving factors: rest Exacerbating factors: movement Associated symptoms: weakness and other (pedal edema) Treatments prior to arrival: none Related Data Home Medications Medication Instructions Recorded Confirmed magnesium oxide 400 mg (241.3 mg 400 mg PO DAILY 09/07/22 12/11/22 magnesium) tablet simvastatin 40 mg tablet 40 mg PO DAILY 09/07/22 12/11/22 trazodone 100 mg tablet 100 mg PO DAILY@0000 12/04/22 12/11/22 Previous Rx's Medication Instructions Recorded ipratropium 0.5 mg-albuterol 3 mg 3 ml inhalation Q6H PRN shortness 02/09/22 (2.5 mg base)/3 mL nebulization of breath or wheezing 90 days soln #1,080 mL metoprolol succinate 100 mg 50 mg PO TID #90 tabs 06/13/22 tablet,extended release 24 hr albuterol sulfate 90 mcg/actuation 2 puff inhalation Q6H PRN 09/03/22 aerosol inhaler bronchospasm #8.5 grams famotidine 40 mg tablet 40 mg PO DAILY #90 tabs 09/27/22 furosemide 20 mg tablet 40 mg PO DAILY PRN edema #180 tabs 09/27/22 compr.stocking,knee,long,x-lrg #2 ea 09/29/22 diltiazem HCl 180 mg 180 mg PO DAILY #120 caps 11/06/22 capsule,extended release 24 hr rivaroxaban 20 mg tablet (Xarelto) 20 mg PO DAILY #90 tabs 11/06/22 prednisone 20 mg tablet 20 mg PO DAILY #3 tabs 12/07/22 docusate sodium 100 mg capsule 100 mg PO BID PRN constipation #30 12/08/22 (Colace) caps lorazepam 0.5 mg tablet 0.5 mg PO BEDTIME PRN anxiety #90 12/17/22 tabs quetiapine 200 mg tablet 200 mg PO DAILY@0000 #90 tabs 12/30/22 zolpidem 10 mg tablet 10 mg PO DAILY@0000 PRN insomnia 01/04/23 #30 tabs oxycodone 5 mg tablet 5 mg PO Q4-6H PRN pain 28 days 01/08/23 #140 tabs prednisone 5 mg tablet 5 mg PO DAILY #30 tabs 01/08/23 fluticasone 250 mcg-salmeterol 50 1 ea PO BID #180 ea 01/19/23 mcg/dose blistr powdr for inhalation (Wixela Inhub) Allergies Allergy/AdvReac Type Severity Reaction Status Date / Time No Known Allergies Allergy Verified 01/19/23 10:30 Review of Systems Review of Systems: As per HPI. Yes all other systems are reviewed and are negative [facility] Past Medical History Medical History Allergic rhinitis Back pain Chronic respiratory failure with hypoxia COPD (chronic obstructive pulmonary disease) COVID-19 vaccine series completed Dependence on continuous supplemental oxygen Elevated cholesterol History of cardioversion HTN (hypertension) Hypoxemia On anticoagulant therapy Persistent atrial fibrillation Surgical History H/O colonoscopy History of back surgery History of esophagogastroduodenoscopy (EGD) Family History Family History Father No problems noted. Mother No problems noted. Father No problems noted. Mother No problems noted. Social History Social History Household Members: None Housing: Apartment Are you a primary respiratory care faculty to a significant other at home: No Do you presently have visiting nurse or other home services: No Alcohol intake: never Patient Tobacco Use Status: Former Tobacco user Quit Date: 2000 Tobacco use type: Cigarette Smoked in Last 30 Days: No e-Cigarette/Vaping Use: Never Used Second Hand Smoke Exposure: No Use of substances other than those prescribed or required for medical reasons: No Advance Directives: No Advance Directives Information Provided: Yes service: No Current occupational status: disabled Cognitive needs: No Hearing needs: No Vision needs: Yes Physical Exam ED Vital Signs: Vital Signs - 24 hr 01/19/23 10:31 01/19/23 11:16 01/19/23 11:16 Temperature 98.9 F Pulse Rate 108 H 106 H 97 Respiratory Rate 16 16 14 Blood Pressure 123/78 104/71 Pulse Oximetry 97 97 Oxygen Delivery Method Nasal Cannula Nasal Cannula Oxygen Flow Rate 3 01/19/23 14:00 01/19/23 15:27 Temperature 98.0 F Pulse Rate 103 H 108 H Respiratory Rate 18 20 Blood Pressure 121/79 115/71 Pulse Oximetry 3 L 95 Oxygen Delivery Method Nasal Cannula Nasal Cannula Oxygen Flow Rate 3 BMI result Body Mass Index 17.3 Vital signs have been reviewed and appear to be correct. Blood pressure normal. Heart rate tachycardic. Respiratory rate normal. Temperature normal. Oxygen saturation normal. Medications Administered Discontinued Medications Generic Name Dose Route Start Last Admin Trade Name Freq PRN Reason Stop Dose Admin Albuterol/Ipratropium 3 ml 01/19/23 10:49 01/19/23 11:14 Albuterol/Iprat 2.5/0.5mg 3 Ml Ampul.Neb INHALE 01/19/23 10:50 3 ml ONCE ONE Administration Ceftriaxone Sodium 1 gm/ 50 mls @ 100 mls/hr 01/19/23 13:49 01/19/23 15:16 Sodium Chloride IV 01/19/23 14:18 Infused ONCE ONE Infusion Methylprednisolone Sodium Succinate 125 mg 01/19/23 11:00 01/19/23 11:57 Methylprednisolone Sod Succ 125 Mg/2 Ml Vial IVPUSH 01/19/23 11:01 125 mg ONCE ONE Administration Oxycodone HCl 5 mg 01/19/23 14:50 01/19/23 15:10 Oxycodone Hcl Immed Release 5 Mg Tablet PO 01/19/23 14:51 5 mg ONCE ONE Administration Medical Decision Making Medical Decision Making [facility] Narrative: 10:55 Patient is a 62-year-old male with history of history of chronic hypoxemic respiratory failure due to COPD on 3 L supplemental oxygen, paroxysmal atrial fibrillation on Xarelto, mixed hyperlipidemia, HTN, mood disorder presenting to the emergency department with complaint of worsening shortness of breath over the past few days as well as generalized weakness and pedal edema. On exam patient is awake, A+Ox3, mildly tachycardic, VS otherwise WNL, afebrile, normal neurological exam without focal deficits, LS diminished throughout, bilateral 3+ pitting edema to feet, white plaques to tongue. Given reported symptoms and physical exam findings, initial differential includes COPD exacerbation, pneumonia, CHF, ACS. PE less likely as patient is anticoagulated, Wells score 4.5. Concern for oral thrush based on physical exam findings likely related to inhaled corticosteroids. Do not suspect sepsis at this time. Labs notable for leukocytosis which is somewhat consistent with prior labs, mild hyponatremia, lactic WNL, troponin 5.5, will obtain delta trop, labs otherwise unchanged from baseline, BNP WNL. X-ray notable for mildly increased hazy opacification to RUL. My interpretation is in agreement with the radiologist's interpretation. Low suspicion for/unlikely CHF exacerbation. Patient meeting SIRS criteria. Will order ceftriaxone. 15:[address] [place] Text [address] Dover for admission. Differential Diagnosis Differential Diagnoses: The differential diagnosis associated with the presentation includes As per MDM. Admission/Observation Consideration of admission/observation: Escalation of care including admission/observation considered Consult Healthcare Provider Management of the patient was discussed with: Hospitalist (Dr. Dover) Lab Data [facility] Lab Attestation statement: I reviewed the patient's lab results. As per MDM. 01/19/23 11:40 01/19/23 11:40 Labs: Lab Results 01/19/23 01/19/23 01/19/23 Range/Units 11:40 11:40 11:40 WBC 18.7 H (4.8-10.8) X10*3/uL RBC 4.21 L (4.60-5.80) X10*6/uL Hgb 13.5 L (14.0-18.0) g/dl Hct 40.4 L (42.0-52.0) % MCV 96.0 (80.0-98.0) fL MCH 32.1 (27.0-33.0) pg MCHC 33.4 (31.0-36.0) g/dl RDW 13.1 (11.0-16.0) % Plt Count 255 (160-400) X10*3/uL MPV 9.2 L (9.4-12.4) fL Immature Gran % (Auto) 1.9 H (0.0-0.4) % Neut % (Auto) 78.7 H (45-73) % Lymph % (Auto) 8.3 L (20-40) % Marion % (Auto) 8.6 (2-11) % Eos % (Auto) 2.3 (0-4) % Baso % (Auto) 0.2 (0-2) % Lymph # (Auto) 1.6 (1.2-4.9) X10*3/uL Marion # (Auto) 1.6 H (0.1-1.2) X10*3/uL Eos # (Auto) 0.4 (0.0-0.4) X10*3/uL Baso # (Auto) 0.0 (0.0-0.2) X10*3/uL Abs Immat Gran (auto) 0.35 H (0.00-0.03) X10*3/uL Absolute Neuts (auto) 14.7 H (2.0-8.3) x10*3/uL Absolute Nucleated RBC 0.000 (0.0-0.012) X10*3/uL Nucleated RBC % (auto) 0.0 (0.0-0.2) /100WBC Smear Tech's Comments VERIFIED PT (11.1-13.3) SEC INR (0.9-1.1) Sodium 130 L (135-145) mmol/L Potassium 3.5 (3.3-5.1) mmol/L Chloride 90 L (96-108) mmol/L Carbon Dioxide 32 H (22-29) mmol/L Anion Gap 12 (12-20) BUN 8 L (9-16) mg/dL Creatinine 0.58 (0.5-1.4) mg/dL Estim Creat Clear Calc 96.6 Estimated GFR > 60 Random Glucose 87 (60-115) mg/dL Lactic Acid (0.5-2.0) mmol/L Calcium 8.7 D (8.4-10.2) mg/dL Total Bilirubin 1.3 H (0.0-1.0) mg/dL AST 16 (5-37) U/L ALT 20 (0-40) U/L Alkaline Phosphatase 62 (39-117) U/L Troponin I High Sens 5.5 D (<3.5-35.0) ng/L B-Natriuretic Peptide (<100) pg/mL Total Protein 5.9 L (6.5-8.0) g/dL Albumin 3.4 L (3.5-5.0) g/dL Influenza Type A (PCR) (Negative) Influenza Type B (PCR) (Negative) RSV RNA Qual (PCR) (Negative) SARS-CoV-2 RNA (RT-PCR) (Negative) 01/19/23 01/19/23 01/19/23 Range/Units 11:40 11:40 11:40 WBC (4.8-10.8) X10*3/uL RBC (4.60-5.80) X10*6/uL Hgb (14.0-18.0) g/dl Hct (42.0-52.0) % MCV (80.0-98.0) fL MCH (27.0-33.0) pg MCHC (31.0-36.0) g/dl RDW (11.0-16.0) % Plt Count (160-400) X10*3/uL MPV (9.4-12.4) fL Immature Gran % (Auto) (0.0-0.4) % Neut % (Auto) (45-73) % Lymph % (Auto) (20-40) % Marion % (Auto) (2-11) % Eos % (Auto) (0-4) % Baso % (Auto) (0-2) % Lymph # (Auto) (1.2-4.9) X10*3/uL Marion # (Auto) (0.1-1.2) X10*3/uL Eos # (Auto) (0.0-0.4) X10*3/uL Baso # (Auto) (0.0-0.2) X10*3/uL Abs Immat Gran (auto) (0.00-0.03) X10*3/uL Absolute Neuts (auto) (2.0-8.3) x10*3/uL Absolute Nucleated RBC (0.0-0.012) X10*3/uL Nucleated RBC % (auto) (0.0-0.2) /100WBC Smear Tech's Comments PT 21.6 H (11.1-13.3) SEC INR 1.8 H (0.9-1.1) Sodium (135-145) mmol/L Potassium (3.3-5.1) mmol/L Chloride (96-108) mmol/L Carbon Dioxide (22-29) mmol/L Anion Gap (12-20) BUN (9-16) mg/dL Creatinine (0.5-1.4) mg/dL Estim Creat Clear Calc Estimated GFR Random Glucose (60-115) mg/dL Lactic Acid 0.9 (0.5-2.0) mmol/L Calcium (8.4-10.2) mg/dL Total Bilirubin (0.0-1.0) mg/dL AST (5-37) U/L ALT (0-40) U/L Alkaline Phosphatase (39-117) U/L Troponin I High Sens (<3.5-35.0) ng/L B-Natriuretic Peptide (<100) pg/mL Total Protein (6.5-8.0) g/dL Albumin (3.5-5.0) g/dL Influenza Type A (PCR) NEGATIVE (Negative) Influenza Type B (PCR) NEGATIVE (Negative) RSV RNA Qual (PCR) NEGATIVE (Negative) SARS-CoV-2 RNA (RT-PCR) NEGATIVE (Negative) 01/19/23 Range/Units 11:40 WBC (4.8-10.8) X10*3/uL RBC (4.60-5.80) X10*6/uL Hgb (14.0-18.0) g/dl Hct (42.0-52.0) % MCV (80.0-98.0) fL MCH (27.0-33.0) pg MCHC (31.0-36.0) g/dl RDW (11.0-16.0) % Plt Count (160-400) X10*3/uL MPV (9.4-12.4) fL Immature Gran % (Auto) (0.0-0.4) % Neut % (Auto) (45-73) % Lymph % (Auto) (20-40) % Marion % (Auto) (2-11) % Eos % (Auto) (0-4) % Baso % (Auto) (0-2) % Lymph # (Auto) (1.2-4.9) X10*3/uL Marion # (Auto) (0.1-1.2) X10*3/uL Eos # (Auto) (0.0-0.4) X10*3/uL Baso # (Auto) (0.0-0.2) X10*3/uL Abs Immat Gran (auto) (0.00-0.03) X10*3/uL Absolute Neuts (auto) (2.0-8.3) x10*3/uL Absolute Nucleated RBC (0.0-0.012) X10*3/uL Nucleated RBC % (auto) (0.0-0.2) /100WBC Smear Tech's Comments PT (11.1-13.3) SEC INR (0.9-1.1) Sodium (135-145) mmol/L Potassium (3.3-5.1) mmol/L Chloride (96-108) mmol/L Carbon Dioxide (22-29) mmol/L Anion Gap (12-20) BUN (9-16) mg/dL Creatinine (0.5-1.4) mg/dL Estim Creat Clear Calc Estimated GFR Random Glucose (60-115) mg/dL Lactic Acid (0.5-2.0) mmol/L Calcium (8.4-10.2) mg/dL Total Bilirubin (0.0-1.0) mg/dL AST (5-37) U/L ALT (0-40) U/L Alkaline Phosphatase (39-117) U/L Troponin I High Sens (<3.5-35.0) ng/L B-Natriuretic Peptide 55 (<100) pg/mL Total Protein (6.5-8.0) g/dL Albumin (3.5-5.0) g/dL Influenza Type A (PCR) (Negative) Influenza Type B (PCR) (Negative) RSV RNA Qual (PCR) (Negative) SARS-CoV-2 RNA (RT-PCR) (Negative) Independent Interpretation I performed an independent interpretation of an: EKG Interpretation: EKG: atrial fibrillation, rate 97bpm, normal QT interval, no significant change from prior. CXR: mild increased hazy opacification RUL Radiology Impression Discussion of test interpretation with radiology: I have reviewed the radiologist's reading. Radiologist Impression: FINDINGS: Known emphysema is seen, right greater than left. Mild increased hazy opacification is seen in the right upper lung. The heart and mediastinal structures are unremarkable. XR/XR chest 2V IMPRESSION: 1.? Mild increased hazy opacification in the right upper lung may be projectional representing soft tissue attenuation. A developing infiltrate cannot be excluded. 2.? Known severe emphysema. ? External Record Review External record reviewed: Inpatient record, Office record and Outpatient record Chronic Conditions Patient?s care impacted by: Other (COPD) Critical Care Time Critical Care Time Critical Care Time: Yes Total Critical Care Time: 35 Attestation: I have personally provided critical care time exclusive of time spent on separately billable procedures. Time includes review of lab data, radiology results, discussion with consultants, and monitoring for potential decompensation. Intervention performed as documented. Discharge Plan Discharge Clinical Impression: Chronic obstructive pulmonary disease with acute exacerbation Patient Disposition: Admitted As Inpatient
--- NOTE | 2023-01-19 10:48 | ECG_ITS ---
Test Reason : SOB Blood Pressure : / mmHG Vent. Rate : 097 BPM Atrial Rate : 000 BPM P-R Int : 000 ms QRS Dur : 082 ms QT Int : 350 ms P-R-T Axes : 000 234 049 degrees QTc Int : 444 ms Poor data quality Atrial fibrillation Right superior axis deviation Pulmonary disease pattern Right ventricular hypertrophy Abnormal ECG When compared with ECG of 09-DEC-2022 23:04, No significant change was found Referred By: Mirtha Champion Electronically Signed By:ENRIQUETA WATTS MD
[2023-01-19] MEDS: Albuterol/Iprat 2.5/0.5MG 3 ML AMPUL.NEB INHALE ×2 (11:14→20:28)
[2023-01-19 11:54] LABS: Basophils Percent Auto 0.2 % (0-2); Eosinophils Absolute Auto 0.4 X10*3/uL (0.0-0.4); Eosinophils Percent Auto 2.3 % (0-4); Hematocrit 40.4 % (42.0-52.0); Hemoglobin 13.5 g/dl (14.0-18.0); Imm Gran Abs Auto 0.35 X10*3/uL (0.00-0.03); Imm Gran Pct Auto 1.9 % (0.0-0.4); Lymphocytes Absolute Auto 1.6 X10*3/uL (1.2-4.9); Lymphocytes Percent Auto 8.3 % (20-40); MANUAL DIFF FLAG SCAN; Mean Corpuscular HGB Conc 33.4 g/dl (31.0-36.0); Mean Corpuscular Hemoglobin 32.1 pg (27.0-33.0); Mean Platelet Volume 9.2 fL (9.4-12.4); Monocytes Absolute Auto 1.6 X10*3/uL (0.1-1.2); Monocytes Percent Auto 8.6 % (2-11); Neutrophils Absolute Auto 14.7 x10*3/uL (2.0-8.3); Neutrophils Percent Auto 78.7 % (45-73); Platelet Count 255 X10*3/uL (160-400); Red Blood Count 4.21 X10*6/uL (4.60-5.80); Red Cell Distribution Width 13.1 % (11.0-16.0); SCAN SMEAR FLAG 1; White Blood Count 18.7 X10*3/uL (4.8-10.8)
[2023-01-19] MEDS: methylPREDNISolone Sod Succ 125 MG/2 ML VIAL IVPUSH (11:57)
--- NOTE | 2023-01-19 11:58 | PC.NURSE ---
20g IV placed in the left AC w/o complications, medication administered per provider order.
[2023-01-19 12:03] LABS: Lactic Acid 0.9 mmol/L (0.5-2.0)
[2023-01-19 12:04] LABS: INTERNATIONAL NORM RATIO 1.8 (0.9-1.1); Prothrombin Time 21.6 SEC (11.1-13.3)
[2023-01-19 12:08] LABS: Alanine Aminotransferase 20 U/L (0-40); Albumin Level 3.4 g/dL (3.5-5.0); Alkaline Phosphatase 62 U/L (39-117); Anion Gap 12 (12-20); Aspartate Amino Transferase 16 U/L (5-37); Bilirubin Total 1.3 mg/dL (0.0-1.0); Blood Urea Nitrogen 8 mg/dL (9-16); Calcium 8.7 mg/dL (8.4-10.2); Carbon Dioxide 32 mmol/L (22-29); Chloride 90 mmol/L (96-108); Creatinine Clr Calc Pharmacy 96.6; Estimated Glomerular Filt Rate > 60; Glucose Random 87 mg/dL (60-115); Potassium 3.5 mmol/L (3.3-5.1); Sodium 130 mmol/L (135-145); Total Protein 5.9 g/dL (6.5-8.0)
[2023-01-19 12:13] LABS: Troponin-I High Sensitivity 5.5 ng/L (<3.5-35.0)
[2023-01-19 12:14] LABS: B Type Natriuretic Peptide 55 pg/mL (<100)
[2023-01-19 12:35] LABS: SLIDE REVIEW VERIFIED
[2023-01-19 12:36] LABS: Influenza A PCR NEGATIVE (Negative); Influenza B PCR NEGATIVE (Negative); Resp Syncy Virus RNA Qual PCR NEGATIVE (Negative); SARS COV2 PCR INHOUSE NEGATIVE (Negative)
[2023-01-19] MEDS: cefTRIAXone sodium 1 GM in 0.9 % Sodium Chloride 50 ML IV (14:46)
[2023-01-19] MEDS: oxyCODONE HCl Immed Release 5 MG TABLET PO ×3 (15:10→21:12)
--- NOTE | 2023-01-19 15:11 | PC.NURSE ---
medication administered per provider order.
--- NOTE | 2023-01-19 15:28 | PC.NURSE ---
pt a&ox3, vss aside from being slighlty tachycardic, pt verbalizing 03/07 pain level - will reassess pain level since medication was administered, pt stating that he hasn't felt this bad in a really long time, waiting for provider to put in diet order so kitchen can be notified.
--- NOTE | 2023-01-19 16:17 | P.HPHOSP_ITS ---
History of Present Illness Date of Service: 01/19/23 Chief Complaint: Shortness of breath 62-year-old man presented to the ER with complaints of worsening shortness of breath especially with ambulation that started a couple days ago. He does have a history of chronic hypoxemic respiratory failure with history of COPD/emphysema on 2-3 L at baseline. He was last discharged on 12/08/2022 and was treated for acute hypoxemic respiratory failure at that time as well. He was not noted to be hypoxic but reported shortness of breath and wheezing. He denied fever, chills, nausea, vomiting, diarrhea, recent travel, sick contacts. In the ER, chest x-ray showed mild increased hazy opacification in the right upper lung possibly representing a developing infiltrate. Sodium 130,, dioxide 32, negative COVID, flu and RSV. In the ER he was given a dose of albuterol, Solu-Medrol, Rocephin and oxycodone. He will be admitted for further management and treatment of acute on chronic hypoxic respiratory failure secondary to COPD exacerbation. Review of Systems Review of Systems: Denies any recent fever chills or decrease in appetite respiratory see HPI cardiovascular denies chest pain gastrointestinal denies any dysphagia abdominal pain nausea vomiting or diarrhea genitourinary denies any dysuria frequency or hematuria musculoskeletal denies any joint pain or swelling neuropsych denies any weakness or seizures all other systems reviewed are negative [facility] Medical History (Updated 01/19/23 @ 16:22 by Carmen Segovia NP) Atrial fibrillation Back pain Chronic respiratory failure with hypoxia COPD (chronic obstructive pulmonary disease) COVID-19 vaccine series completed Dependence on continuous supplemental oxygen Elevated cholesterol History of cardioversion HTN (hypertension) Persistent atrial fibrillation Family History Father No problems noted. Mother No problems noted. Father No problems noted. Mother No problems noted. Surgical History H/O colonoscopy History of back surgery History of esophagogastroduodenoscopy (EGD) Social History Household Members: None Housing: Apartment Are you a primary day care provider to a significant other at home: No Do you presently have visiting nurse or other home services: No Alcohol intake: never Patient Tobacco Use Status: Former Tobacco user Quit Date: 2000 Tobacco use type: Cigarette Smoked in Last 30 Days: No e-Cigarette/Vaping Use: Never Used Second Hand Smoke Exposure: No Use of substances other than those prescribed or required for medical reasons: No Advance Directives: No Advance Directives Information Provided: Yes service: No Current occupational status: disabled Cognitive needs: No Hearing needs: No Vision needs: Yes Meds Allergies Allergy/AdvReac Type Severity Reaction Status Date / Time No Known Allergies Allergy Verified 01/19/23 10:30 Active Medications: Current Medications Acetaminophen (Acetaminophen 325 Mg Tablet) 650 mg PO Q6H PRN PRN Reason: Pain, Mild (Pain Scale 1-3) Albuterol/Ipratropium (Albuterol/Iprat 2.5/0.5mg 3 Ml Ampul.Neb) 3 ml INHALE RQ4H WHILE AWAKE SARAY Diltiazem HCl (Diltiazem Hcl Cd 180 Mg Cap.Er.24h) 180 mg PO DAILY SARAY; Protocol Docusate Sodium (Docusate Sodium 100 Mg Capsule) 100 mg PO BID PRN PRN Reason: constipation Famotidine (Famotidine 20 Mg Tablet) 40 mg PO DAILY SARAY Furosemide (Furosemide 40 Mg Tablet) 40 mg PO DAILY PRN; Protocol PRN Reason: edema Doxycycline Hyclate 100 mg/ (Sodium Chloride) 250 mls @ 166.67 mls/hr IV Q12H SARAY Lorazepam (Lorazepam 0.5 Mg Tablet) 0.5 mg PO BEDTIME PRN PRN Reason: anxiety Methylprednisolone Sodium Succinate (Methylprednisolone Sod Succ 40 Mg/Ml Vial) 40 mg IVPUSH Q8H SARAY Metoprolol Succinate (Metoprolol Succinate Er 50 Mg Tab.Er.24h) 50 mg PO TID SARAY; Protocol Ondansetron HCl (Ondansetron Hcl 4 Mg/2 Ml Vial) 4 mg IVPUSH Q8H PRN PRN Reason: Nausea and Vomiting Pharmacy Consult (Consult Rx Perform Med Rec) 1 each MISCELLANE ONCE PRN PRN Reason: Consult order Sodium Chloride (0.9 % Sodium Chloride Flush 3 Ml Syringe) 3 ml IVFLUSH QSHIFT [facility] Home Medications Medication Instructions Recorded Confirmed Last Taken Type magnesium oxide 400 mg (241.3 mg 400 mg PO DAILY 09/07/22 12/11/22 09/07/22 History magnesium) tablet simvastatin 40 mg tablet 40 mg PO DAILY 09/07/22 01/19/23 09/07/22 History trazodone 100 mg tablet 100 mg PO DAILY@0000 12/04/22 01/19/23 Unknown History furosemide 20 mg tablet 40 mg PO DAILY 01/19/23 01/19/23 Unknown History ipratropium 0.5 mg-albuterol 3 mg 3 ml inhalation QID 01/19/23 01/19/23 Unknown History (2.5 mg base)/3 mL nebulization soln metoprolol succinate 100 mg 100 mg PO BID 01/19/23 01/19/23 Unknown History tablet,extended release 24 hr multivitamin 1 tab PO DAILY 01/19/23 01/19/23 Unknown History oxycodone 5 mg tablet 5 mg PO Q4H 01/19/23 01/19/23 Unknown History Physical Exam Vital Signs and Narrative: Vital Signs: Last Vital Signs Temp 98.0 F 01/19/23 14:00 Pulse 108 H 01/19/23 15:27 Resp 20 01/19/23 15:27 BP 115/71 01/19/23 15:27 Pulse Ox 95 01/19/23 15:27 O2 Del Method Nasal Cannula 01/19/23 15:27 O2 Flow Rate 3 01/19/23 15:27 Oxygen Flow Rate 3 01/19/23 10:31 BMI result Body Mass Index 17.3 Appearing in no acute distress head is normocephalic atraumatic eyes pupils are PERRLA sclera is anicteric mouth throat mucous membranes are intact and moist neck is supple no lymphadenopathy, no JVD noted lung sounds extra jennifer wheezing heart regular rate rhythm, clear S1, S2 positive bowel sounds, abdomen is soft, nontender neuro patient is alert x3, no focal deficits Results Labs 01/19/23 11:40 01/19/23 11:40 Labs: Laboratory Results - last 24 hr 01/19/23 01/19/23 01/19/23 11:40 11:40 11:40 MCV 96.0 MCH 32.1 MCHC 33.4 RDW 13.1 Plt Count 255 MPV 9.2 L Immature Gran % (Auto) 1.9 H Neut % (Auto) 78.7 H Lymph % (Auto) 8.3 L Dickens % (Auto) 8.6 Eos % (Auto) 2.3 Baso % (Auto) 0.2 Lymph # (Auto) 1.6 Dickens # (Auto) 1.6 H Eos # (Auto) 0.4 Baso # (Auto) 0.0 Abs Immat Gran (auto) 0.35 H Absolute Neuts (auto) 14.7 H Absolute Nucleated RBC 0.000 Nucleated RBC % (auto) 0.0 Smear Tech's Comments VERIFIED PT 21.6 H INR 1.8 H Anion Gap 12 Estim Creat Clear Calc 96.6 Estimated GFR > 60 Random Glucose 87 Lactic Acid Calcium 8.7 D Total Bilirubin 1.3 H AST 16 ALT 20 Alkaline Phosphatase 62 B-Natriuretic Peptide Total Protein 5.9 L Albumin 3.4 L Influenza Type A (PCR) Influenza Type B (PCR) RSV RNA Qual (PCR) SARS-CoV-2 RNA (RT-PCR) 01/19/23 01/19/23 01/19/23 11:40 11:40 11:40 MCV MCH MCHC RDW Plt Count MPV Immature Gran % (Auto) Neut % (Auto) Lymph % (Auto) Dickens % (Auto) Eos % (Auto) Baso % (Auto) Lymph # (Auto) Dickens # (Auto) Eos # (Auto) Baso # (Auto) Abs Immat Gran (auto) Absolute Neuts (auto) Absolute Nucleated RBC Nucleated RBC % (auto) Smear Tech's Comments PT INR Anion Gap Estim Creat Clear Calc Estimated GFR Random Glucose Lactic Acid 0.9 Calcium Total Bilirubin AST ALT Alkaline Phosphatase B-Natriuretic Peptide 55 Total Protein Albumin Influenza Type A (PCR) NEGATIVE Influenza Type B (PCR) NEGATIVE RSV RNA Qual (PCR) NEGATIVE SARS-CoV-2 RNA (RT-PCR) NEGATIVE Imaging Radiologist's Impressions: Impressions Chest X-Ray 01/19/23 11:02 IMPRESSION: 1. Mild increased hazy opacification in the right upper lung may be projectional representing soft tissue attenuation. A developing infiltrate cannot be excluded. 2. Known severe emphysema. Assessment and Plan (1) Chronic obstructive pulmonary disease with acute exacerbation: Status: Acute Plan 62-year-old man with a history of chronic respiratory failure admitted with acute on chronic respiratory failure secondary to COPD exacerbation Acute on chronic respiratory failure secondary to COPD exacerbation, without hypoxemia Scheduled Solu-Medrol 40 mg Q 8 hours Schedule DuoNebs every 4 hours while awake Doxycycline for likely bronchitis Continue supplemental oxygen VBG pending Hyponatremia Unknown etiology at this time but possibly secondary to dehydration check urine studies Recheck BMP in the morning, if significant decrease consider Nephrology consultation Atrial fibrillation. Continue diltiazem and Xarelto Monitor for any episodes of RVR Mental health Continue medications History of lower extremity edema Hold Lasix for now in light of hyponatremia DVT prophylaxis with Xarelto Full code Patient requires 2 inpatient midnights for treatment of acute on chronic respiratory failure requiring is scheduled DuoNebs, IV steroids Time Spent With Patient Time: Total time managing care of this patient today ____ minutes. Quality Stroke Does the patient have a stroke diagnosis?: No VTE Prior VTE?: No VTE Risk Level:: Medical - moderate - high VTE Device Contraindication: Treatment Not Indicated VTE Drug Contraindication: N/A - Med Ordered
[2023-01-19 16:22] LABS: Troponin-I High Sensitivity < 2.7 ng/L (<3.5-35.0)
--- NOTE | 2023-01-19 16:35 | PHA.MEDREC ---
Pharmacy Consult ? Medication Reconciliation Pharmacy has completed the medication reconciliation. Patient had list of medications. Reported he take metoprolol 100 mg BID instead of 50 mg TID. Report that his lasix is 40 mg every morning but has not taken it in a while due to being in the hospital. Reports using oxycodone Q4H regularly. Kate Stewart, PharmD
--- NOTE | 2023-01-19 16:37 | PC.NURSE ---
pt's pain level reassessed - stating that his pain level is at 9/10 post medication administration - stating that .low sodium diet ordered for pt - waiting for tray.
[2023-01-19] MEDS: Doxycycline Hyclate 100 MG in 0.9 % Sodium Chloride 250 ML 166.67 MG IV (16:50)
--- NOTE | 2023-01-19 16:52 | PC.NURSE ---
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
[2023-01-19 18:14] LABS: VBG HCO3 38 mmol/L (22-26); VBG pCO2 56 mmHg; VBG pH 7.44 (7.32-7.43); VBG pO2 61 mmHg
[2023-01-19 18:21] LABS: Venous Blood Gas Refer to POC result
--- NOTE | 2023-01-19 18:47 | PC.NURSE ---
pt requesting oxycodone 5mg that he takes at home, this nurse has tiger texted hospitalist Carmen huynh for order for pain medication.
--- NOTE | 2023-01-19 19:03 | PC.NURSE ---
medication administered per provider order.
--- NOTE | 2023-01-19 20:57 | PC.NURSE ---
this rn assumed care of pt @ 1900. pt calm and cooperative. rn to rn report given to noah gabriel. pt sister in law called to check on pt bed assignment status.
[2023-01-19] MEDS: Metoprolol Succinate ER 100 MG TAB.ER.24H PO (21:13)
[2023-01-19] MEDS: methylPREDNISolone Sod Succ 40 MG/ML VIAL IVPUSH (21:13)
[2023-01-19] MEDS: 0.9 % Sodium Chloride Flush 3 ML SYRINGE IVFLUSH (21:14)
[2023-01-20 00:02] LABS: Appearance Urine Clear; Color Urine Yellow; Glucose Urine UA >=1000 mg/dL (Negative); Leukocyte Esterase Urine Negative (Negative); Nitrite Urine Negative (Negative); Specific Gravity - Urine >= 1.030 (1.005-1.025); UMIC TRIGGER UACC YES; Urine Blood Small (1+) (Negative); Urine Ketones 80 mg/dL (Negative); Urine Protein Negative (Neg-Trace)
[2023-01-20 00:10] LABS: Bacteria Urine None Seen (None Seen); Hyaline Casts Urine 0-2 /LPF (0-2); Squamous Epithelial Cell Urine 0-2 /HPF (0-2); WBC Urine 0-5 /HPF (0-5)
[2023-01-20] MEDS: oxyCODONE HCl Immed Release 5 MG TABLET PO ×6 (02:26→22:39)
[2023-01-20 03:16] VITALS: BP 121/86; PULSE 101; RESP 17; TEMP 36.2; O2SAT 96
[2023-01-20] MEDS: Doxycycline Hyclate 100 MG in 0.9 % Sodium Chloride 250 ML 166.67 MG IV ×2 (04:19→16:49)
[2023-01-20] MEDS: methylPREDNISolone Sod Succ 40 MG/ML VIAL IVPUSH ×3 (06:03→22:39)
[2023-01-20 07:07] VITALS: BP 117/79; PULSE 100; RESP 20; TEMP 36.1; O2SAT 97
[2023-01-20 07:21] LABS: Hematocrit 41.2 % (42.0-52.0); Hemoglobin 13.8 g/dl (14.0-18.0); Mean Corpuscular HGB Conc 33.5 g/dl (31.0-36.0); Mean Corpuscular Hemoglobin 31.8 pg (27.0-33.0); Mean Corpuscular Volume 94.9 fL (80.0-98.0); Mean Platelet Volume 9.4 fL (9.4-12.4); Platelet Count 371 X10*3/uL (160-400); Red Blood Count 4.34 X10*6/uL (4.60-5.80); Red Cell Distribution Width 12.6 % (11.0-16.0); White Blood Count 15.1 X10*3/uL (4.8-10.8)
[2023-01-20 08:02] LABS: Anion Gap 12 (12-20); Blood Urea Nitrogen 11 mg/dL (9-16); Calcium 9.3 mg/dL (8.4-10.2); Carbon Dioxide 31 mmol/L (22-29); Chloride 92 mmol/L (96-108); Creatinine Clr Calc Pharmacy 83.6; Estimated Glomerular Filt Rate > 60; Glucose Random 168 mg/dL (60-115); Potassium 4.4 mmol/L (3.3-5.1); Sodium 131 mmol/L (135-145)
[2023-01-20] MEDS: Atorvastatin Calcium 20 MG TABLET PO (08:06)
[2023-01-20] MEDS: Metoprolol Succinate ER 100 MG TAB.ER.24H PO ×2 (08:06→20:53)
[2023-01-20] MEDS: dilTIAZem HCL CD 180 MG CAP.ER.24H PO (08:07)
[2023-01-20] MEDS: Famotidine 20 MG TABLET 40 MG PO (08:07)
--- NOTE | 2023-01-20 09:04 | MHC.CM.PN ---
IMM 01/20. Pt admitted with COPD exacerbation. Pt lives alone, has home O2 with [employer]. Pt states he has active [facility] and [facility] services. D/C plan to return home with resumption of [facility] and [facility]. Pt will need assistance with transportation. Pt states he has a HCP Emily Avila ([facility]) [phone], and Sandrine Menjivar (neighbor) [phone], copy of HCP requested. When asked if STR were to be recommended, pt states he is against that idea as he has his cat and dog at home that he needs to care for (neighbor is watching them currently). PCP: Olu Ramirez vax: x 3 pfizer
[2023-01-20] MEDS: 0.9 % Sodium Chloride Flush 3 ML SYRINGE IVFLUSH ×2 (10:13→15:17)
--- NOTE | 2023-01-20 10:45 | P.PNIM_ITS ---
Subjective Subjective Date of Service: 01/20/23 Review of Systems Follow up COPD exacerbation still with some wheezing feeling weak Physical Exam Vital Signs: Vital Signs: Last Vital Signs Temp 96.9 F 01/20/23 07:07 Pulse 100 01/20/23 07:07 Resp 20 01/20/23 07:07 BP 117/79 01/20/23 07:07 Pulse Ox 97 01/20/23 07:07 O2 Del Method Nasal Cannula 01/20/23 07:07 O2 Flow Rate 3 01/20/23 07:07 Oxygen Flow Rate 3 01/19/23 10:31 BMI result Body Mass Index 17.3 Appearing in no acute distress lung sounds exp wheezing heart regular rate rhythm, clear S1, S2 positive bowel sounds, abdomen is soft, nontender neuro patient is alert x3, no focal deficits Objective Data Active Medications Acetaminophen (Acetaminophen 325 Mg Tablet) 650 mg PO Q6H PRN PRN Reason: Pain, Mild (Pain Scale 1-3) Albuterol/Ipratropium (Albuterol/Iprat 2.5/0.5mg 3 Ml Ampul.Neb) 3 ml INHALE RQ4H WHILE AWAKE [facility] Last Admin: 01/20/23 07:59 Dose: Not Given Documented By: JASPAL Non-Admin Reason: See Note Atorvastatin Calcium (Atorvastatin Calcium 20 Mg Tablet) 20 mg PO DAILY [facility] Last Admin: 01/20/23 08:06 Dose: 20 mg Documented By: ROSEMARY Diltiazem HCl (Diltiazem Hcl Cd 180 Mg Cap.Er.24h) 180 mg PO DAILY [facility]; Protocol Last Admin: 01/20/23 08:07 Dose: 180 mg Documented By: ROSEMARY Docusate Sodium (Docusate Sodium 100 Mg Capsule) 100 mg PO BID PRN PRN Reason: constipation Famotidine (Famotidine 20 Mg Tablet) 40 mg PO DAILY [facility] Last Admin: 01/20/23 08:07 Dose: 40 mg Documented By: ROSEMARY Doxycycline Hyclate 100 mg/ (Sodium Chloride) 250 mls @ 166.67 mls/hr IV Q12H [facility] Last Infusion: 01/20/23 06:05 Dose: 0 mls/hr Documented By: ANTOIC Lidocaine/Diphenhydr/Alum/Mg/Simeth (Mag&Al/Sim/Diphenhyd/Lidocaine 10 Ml Oral.Susp) 10 ml PO Q3H PRN PRN Reason: Pain, Mild (Pain Scale 1-3) Lorazepam (Lorazepam 0.5 Mg Tablet) 0.5 mg PO BEDTIME PRN PRN Reason: anxiety Methylprednisolone Sodium Succinate (Methylprednisolone Sod Succ 40 Mg/Ml Vial) 40 mg IVPUSH Q8H [facility] Last Admin: 01/20/23 06:03 Dose: 40 mg Documented By: ANNIE Metoprolol Succinate (Metoprolol Succinate Er 100 Mg Tab.Er.24h) 100 mg PO BID [facility]; Protocol Last Admin: 01/20/23 08:06 Dose: 100 mg Documented By: ROSEMARY Ondansetron HCl (Ondansetron Hcl 4 Mg/2 Ml Vial) 4 mg IVPUSH Q8H PRN PRN Reason: Nausea and Vomiting Oxycodone HCl (Oxycodone Hcl Immed Release 5 Mg Tablet) 5 mg PO Q4H [facility] Last Admin: 01/20/23 10:12 Dose: 5 mg Documented By: ROSEMARY Pharmacy Consult (Consult Rx Perform Med Rec) 1 each MISCELLANE ONCE PRN PRN Reason: Consult order Quetiapine Fumarate (Quetiapine Fumarate 200 Mg Tablet) 200 mg PO DAILY@0000 [facility] Last Admin: 01/19/23 21:14 Dose: Not Given Documented By: ANTJAYASHREE Non-Admin Reason: Patient Refused Rivaroxaban (Rivaroxaban 20 Mg Tablet) 20 mg PO DAILY@1730 [facility] Sodium Chloride (0.9 % Sodium Chloride Flush 3 Ml Syringe) 3 ml IVFLUSH QSHIFT [facility] Last Admin: 01/20/23 10:13 Dose: 3 ml Documented By: ROSEMARY Trazodone HCl (Trazodone Hcl 100 Mg Tablet) 100 mg PO DAILY@0000 [facility] Last Admin: 01/19/23 21:14 Dose: Not Given Documented By: ANTOIC Non-Admin Reason: Patient Refused Zolpidem Tartrate (Zolpidem Tartrate 5 Mg Tablet) 5 mg PO DAILY@0000 PRN PRN Reason: insomnia Labs 01/20/23 07:02 01/20/23 07:02 Labs: Laboratory Results - last 24 hr 01/19/23 01/19/23 01/19/23 11:40 11:40 11:40 MCV 96.0 MCH 32.1 MCHC 33.4 RDW 13.1 Plt Count 255 MPV 9.2 L Immature Gran % (Auto) 1.9 H Neut % (Auto) 78.7 H Lymph % (Auto) 8.3 L [place] % (Auto) 8.6 Eos % (Auto) 2.3 Baso % (Auto) 0.2 Lymph # (Auto) 1.6 [place] # (Auto) 1.6 H Eos # (Auto) 0.4 Baso # (Auto) 0.0 Abs Immat Gran (auto) 0.35 H Absolute Neuts (auto) 14.7 H Absolute Nucleated RBC 0.000 Nucleated RBC % (auto) 0.0 Smear Tech's Comments VERIFIED PT 21.6 H INR 1.8 H VBG pH VBG pCO2 VBG pO2 VBG HCO3 VBG O2 Saturation VBG Base Excess Anion Gap 12 Estim Creat Clear Calc 96.6 Estimated GFR > 60 Random Glucose 87 Lactic Acid Calcium 8.7 D Total Bilirubin 1.3 H AST 16 ALT 20 Alkaline Phosphatase 62 B-Natriuretic Peptide Total Protein 5.9 L Albumin 3.4 L Urine Color Urine Appearance Urine pH Ur Specific [place] Urine Protein Urine Glucose (UA) Urine Ketones Urine Blood Urine Nitrite Ur Leukocyte Esterase Urine RBC Urine WBC Ur Squamous Epith Cells Urine Bacteria Hyaline Casts Influenza Type A (PCR) Influenza Type B (PCR) RSV RNA Qual (PCR) SARS-CoV-2 RNA (RT-PCR) 01/19/23 01/19/23 01/19/23 11:40 11:40 11:40 MCV MCH MCHC RDW Plt Count MPV Immature Gran % (Auto) Neut % (Auto) Lymph % (Auto) [place] % (Auto) Eos % (Auto) Baso % (Auto) Lymph # (Auto) [place] # (Auto) Eos # (Auto) Baso # (Auto) Abs Immat Gran (auto) Absolute Neuts (auto) Absolute Nucleated RBC Nucleated RBC % (auto) Smear Tech's Comments PT INR VBG pH VBG pCO2 VBG pO2 VBG HCO3 VBG O2 Saturation VBG Base Excess Anion Gap Estim Creat Clear Calc Estimated GFR Random Glucose Lactic Acid 0.9 Calcium Total Bilirubin AST ALT Alkaline Phosphatase B-Natriuretic Peptide 55 Total Protein Albumin Urine Color Urine Appearance Urine pH Ur Specific [place] Urine Protein Urine Glucose (UA) Urine Ketones Urine Blood Urine Nitrite Ur Leukocyte Esterase Urine RBC Urine WBC Ur Squamous Epith Cells Urine Bacteria Hyaline Casts Influenza Type A (PCR) NEGATIVE Influenza Type B (PCR) NEGATIVE RSV RNA Qual (PCR) NEGATIVE SARS-CoV-2 RNA (RT-PCR) NEGATIVE 01/19/23 01/19/23 01/20/23 17:18 23:45 07:02 MCV 94.9 MCH 31.8 MCHC 33.5 RDW 12.6 Plt Count 371 D MPV 9.4 Immature Gran % (Auto) Neut % (Auto) Lymph % (Auto) [place] % (Auto) Eos % (Auto) Baso % (Auto) Lymph # (Auto) [place] # (Auto) Eos # (Auto) Baso # (Auto) Abs Immat Gran (auto) Absolute Neuts (auto) Absolute Nucleated RBC 0.000 Nucleated RBC % (auto) 0.0 Smear Tech's Comments PT INR VBG pH 7.44 H VBG pCO2 56 VBG pO2 61 VBG HCO3 38 H VBG O2 Saturation 90.0 VBG Base Excess 12.0 Anion Gap Estim Creat Clear Calc Estimated GFR Random Glucose Lactic Acid Calcium Total Bilirubin AST ALT Alkaline Phosphatase B-Natriuretic Peptide Total Protein Albumin Urine Color Yellow Urine Appearance Clear Urine pH 6.0 Ur Specific [place] >= 1.030 H Urine Protein Negative Urine Glucose (UA) >=1000 H Urine Ketones 80 Urine Blood Small (1+) H Urine Nitrite Negative Ur Leukocyte Esterase Negative Urine RBC 11-20 H Urine WBC 0-5 Ur Squamous Epith Cells 0-2 Urine Bacteria None Seen Hyaline Casts 0-2 Influenza Type A (PCR) Influenza Type B (PCR) RSV RNA Qual (PCR) SARS-CoV-2 RNA (RT-PCR) 01/20/23 07:02 MCV MCH MCHC RDW Plt Count MPV Immature Gran % (Auto) Neut % (Auto) Lymph % (Auto) [place] % (Auto) Eos % (Auto) Baso % (Auto) Lymph # (Auto) [place] # (Auto) Eos # (Auto) Baso # (Auto) Abs Immat Gran (auto) Absolute Neuts (auto) Absolute Nucleated RBC Nucleated RBC % (auto) Smear Tech's Comments PT INR VBG pH VBG pCO2 VBG pO2 VBG HCO3 VBG O2 Saturation VBG Base Excess Anion Gap 12 Estim Creat Clear Calc 83.6 Estimated GFR > 60 Random Glucose 168 H Lactic Acid Calcium 9.3 D Total Bilirubin AST ALT Alkaline Phosphatase B-Natriuretic Peptide Total Protein Albumin Urine Color Urine Appearance Urine pH Ur Specific [place] Urine Protein Urine Glucose (UA) Urine Ketones Urine Blood Urine Nitrite Ur Leukocyte Esterase Urine RBC Urine WBC Ur Squamous Epith Cells Urine Bacteria Hyaline Casts Influenza Type A (PCR) Influenza Type B (PCR) RSV RNA Qual (PCR) SARS-CoV-2 RNA (RT-PCR) Assessment and Plan (1) Chronic obstructive pulmonary disease with acute exacerbation: Status: Acute Plan 62-year-old man with a history of chronic respiratory failure admitted with andrzej on chronic respiratory failure secondary to COPD exacerbation Acute on chronic respiratory failure secondary to COPD exacerbation, without hypoxemia Scheduled Solu-Medrol 40 mg Q 8 hours Schedule DuoNebs every 4 hours while awake Doxycycline for likely bronchitis Continue supplemental oxygen VBG 7.44/56/61/38 Hyponatremia. Sodium trending up Likely secondary to dehydration check urine studies Recheck BMP in the morning, if significant decrease consider Nephrology consultation Atrial fibrillation. Continue diltiazem and Xarelto Monitor for any episodes of RVR Mental health Continue medications History of lower extremity edema Hold Lasix for now in light of hyponatremia DVT prophylaxis with Xarelto Attending Dr. Aviles Full code Continued hospital stay for treatment of acute on chronic respiratory failure requiring is scheduled DuoNebs, IV steroids Time Spent With Patient Time: Total time managing care of this patient today ____ minutes. Quality Stroke Does the patient have a stroke diagnosis?: No VTE Prior VTE?: No VTE Risk Level:: Medical - moderate - high VTE Device Contraindication: Treatment Not Indicated VTE Drug Contraindication: N/A - Med Ordered
[2023-01-20 11:52] VITALS: BMI 17.3
[2023-01-20] MEDS: Mag&Al/Sim/Diphenhyd/Lidocaine 10 ML ORAL.SUSP PO ×3 (14:27→20:53)
[2023-01-20 15:04] VITALS: BP 121/66; PULSE 100; RESP 18; TEMP 36.2; O2SAT 99
[2023-01-20] MEDS: Rivaroxaban 20 MG TABLET PO (16:50)
[2023-01-20 20:51] VITALS: BP 139/85; PULSE 102; RESP 20; TEMP 36.7; O2SAT 98
[2023-01-20 21:27] VITALS: BP 111/76; PULSE 99; RESP 18; TEMP 36; O2SAT 99
[2023-01-20 23:39] VITALS: BP 126/77; PULSE 68; RESP 18; TEMP 36.4; O2SAT 98
[2023-01-21] VITALS (7 sets, daily range): BP systolic 118–154; BP diastolic 74–100; PULSE 90–103; RESP 16–20; TEMP 36–37.1; O2SAT 96–99
[2023-01-21] MEDS: Mag&Al/Sim/Diphenhyd/Lidocaine 10 ML ORAL.SUSP PO ×5 (01:04→20:25)
[2023-01-21] MEDS: 0.9 % Sodium Chloride Flush 3 ML SYRINGE IVFLUSH ×3 (01:05→16:55)
[2023-01-21] MEDS: oxyCODONE HCl Immed Release 5 MG TABLET PO ×6 (03:51→22:47)
[2023-01-21] MEDS: Doxycycline Hyclate 100 MG in 0.9 % Sodium Chloride 250 ML 166.67 MG IV ×2 (03:52→16:55)
[2023-01-21] MEDS: methylPREDNISolone Sod Succ 40 MG/ML VIAL IVPUSH (06:26)
[2023-01-21] MEDS: Metoprolol Succinate ER 100 MG TAB.ER.24H PO ×2 (07:47→20:25)
[2023-01-21] MEDS: Famotidine 20 MG TABLET 40 MG PO (07:48)
[2023-01-21] MEDS: dilTIAZem HCL CD 180 MG CAP.ER.24H PO (07:48)
[2023-01-21] MEDS: Atorvastatin Calcium 20 MG TABLET PO (07:48)
--- NOTE | 2023-01-21 12:52 | P.PNIM_ITS ---
Subjective Subjective Date of Service: 01/21/23 Interval History: seen and examined this morning follow up for COPD exacerbation cough at baseline mostly complaining about ill fitting dentures has not been walking around much Review of Systems Review of Systems: Yes all other systems are reviewed and are negative Constitutional Constitutional: Denies chills and Denies fever(s) Cardiovascular Cardiovascular: Denies chest pain, Denies palpitations and Denies dyspnea Respiratory Respiratory: Reports cough and Denies dyspnea Gastrointestinal Gastrointestinal: Denies abdominal pain, Denies nausea and Denies vomiting Endocrine Endocrine: Denies palpitations Physical Exam Vital Signs: Vital Signs: Last Vital Signs Temp 97.9 F 01/21/23 08:00 Pulse 98 01/21/23 08:00 Resp 16 01/21/23 08:00 BP 118/84 01/21/23 08:00 Pulse Ox 99 01/21/23 08:00 O2 Del Method Nasal Cannula 01/21/23 08:00 O2 Flow Rate 3 01/21/23 08:00 Oxygen Flow Rate 3 01/19/23 10:31 BMI result Body Mass Index 17.3 Const: General: comfortable, no acute distress, alert and awake Nutritional Appearance: thin Orientation/consciousness: patient oriented x3 Resp: Effort & Inspection: normal respiratory effort, able to speak in complete sentences, no respiratory distress and no use of accessory muscles Cardio: Rate: regular rate Heart sounds: S1 normal heart sound present and S2 normal heart sound present GI: Inspection: No distended Palpation (GI): Soft to palpation Neuro: General: patient oriented x3 and CN's II-XI intact bilaterally Extrem: General: Yes no pedal edema Objective Data Active Medications Acetaminophen (Acetaminophen 325 Mg Tablet) 650 mg PO Q6H PRN PRN Reason: Pain, Mild (Pain Scale 1-3) Albuterol/Ipratropium (Albuterol/Iprat 2.5/0.5mg 3 Ml Ampul.Neb) 3 ml INHALE RQ4H WHILE AWAKE [facility] Last Admin: 01/21/23 11:54 Dose: Not Given Documented By: JASPAL Non-Admin Reason: Patient Refused Atorvastatin Calcium (Atorvastatin Calcium 20 Mg Tablet) 20 mg PO DAILY [facility] Last Admin: 01/21/23 07:48 Dose: 20 mg Documented By: BIBI Diltiazem HCl (Diltiazem Hcl Cd 180 Mg Cap.Er.24h) 180 mg PO DAILY [facility]; Protocol Last Admin: 01/21/23 07:48 Dose: 180 mg Documented By: BIBI Docusate Sodium (Docusate Sodium 100 Mg Capsule) 100 mg PO BID PRN PRN Reason: constipation Famotidine (Famotidine 20 Mg Tablet) 40 mg PO DAILY [facility] Last Admin: 01/21/23 07:48 Dose: 40 mg Documented By: BIBI Doxycycline Hyclate 100 mg/ (Sodium Chloride) 250 mls @ 166.67 mls/hr IV Q12H [facility] Last Infusion: 01/21/23 05:36 Dose: 0 mls/hr Documented By: ANGEL Lidocaine/Diphenhydr/Alum/Mg/Simeth (Mag&Al/Sim/Diphenhyd/Lidocaine 10 Ml Oral.Susp) 10 ml PO Q3H PRN PRN Reason: Pain, Mild (Pain Scale 1-3) Last Admin: 01/21/23 11:03 Dose: 10 ml Documented By: BIBI Lorazepam (Lorazepam 0.5 Mg Tablet) 0.5 mg PO BEDTIME PRN PRN Reason: anxiety Methylprednisolone Sodium Succinate (Methylprednisolone Sod Succ 40 Mg/Ml Vial) 40 mg IVPUSH Q8H [facility] Last Admin: 01/21/23 06:26 Dose: 40 mg Documented By: ANGEL Metoprolol Succinate (Metoprolol Succinate Er 100 Mg Tab.Er.24h) 100 mg PO BID [facility]; Protocol Last Admin: 01/21/23 07:47 Dose: 100 mg Documented By: BIBI Ondansetron HCl (Ondansetron Hcl 4 Mg/2 Ml Vial) 4 mg IVPUSH Q8H PRN PRN Reason: Nausea and Vomiting Oxycodone HCl (Oxycodone Hcl Immed Release 5 Mg Tablet) 5 mg PO Q4H [facility] Last Admin: 01/21/23 11:00 Dose: 5 mg Documented By: BIBI Pharmacy Consult (Consult Rx Perform Med Rec) 1 each MISCELLANE ONCE PRN PRN Reason: Consult order Quetiapine Fumarate (Quetiapine Fumarate 200 Mg Tablet) 200 mg PO DAILY@0000 [facility] Last Admin: 01/21/23 01:05 Dose: Not Given Documented By: ANGEL Non-Admin Reason: Patient Refused Rivaroxaban (Rivaroxaban 20 Mg Tablet) 20 mg PO DAILY@1730 [facility] Last Admin: 01/20/23 16:50 Dose: 20 mg Documented By: MARY Sodium Chloride (0.9 % Sodium Chloride Flush 3 Ml Syringe) 3 ml IVFLUSH QSHIFT [facility] Last Admin: 01/21/23 07:48 Dose: 3 ml Documented By: BIBI Trazodone HCl (Trazodone Hcl 100 Mg Tablet) 100 mg PO DAILY@0000 [facility] Last Admin: 01/21/23 01:05 Dose: Not Given Documented By: ANGEL Non-Admin Reason: Patient Refused Zolpidem Tartrate (Zolpidem Tartrate 5 Mg Tablet) 5 mg PO DAILY@0000 PRN PRN Reason: insomnia Labs 01/20/23 07:02 01/20/23 07:02 Microbiology Microbiology Results: Microbiology 01/19/23 11:40 Blood Culture - Preliminary Blood - Venous No growth after 24 hours. 01/19/23 11:40 Blood Culture - Preliminary Blood - Venous No growth after 24 hours. Assessment and Plan (1) Chronic obstructive pulmonary disease with acute exacerbation: Status: Acute Plan 62-year-old man with a history of chronic respiratory failure admitted with acute on chronic respiratory failure secondary to COPD exacerbation Acute on chronic respiratory failure secondary to acute COPD exacerbation, without hypoxemia Scheduled Solu-Medrol, will start to wean (on prednisone 5mg daily at baseline) Schedule DuoNebs every 4 hours while awake Continue Doxycycline for likely bronchitis Continue supplemental oxygen, on baseline 3L Hyponatremia. Sodium trending up Likely secondary to dehydration Atrial fibrillation HR controlled Continue metoprolol, diltiazem and Xarelto Mood Continue medications History of lower extremity edema Hold Lasix for now in light of hyponatremia HLD continue statin chronic pain continue baseline oxycodone ill fitting dentures will need outpatient follow up with dentist presumed CHF, unspecified lasix on hold for hyponatremia DVT prophylaxis with [place] Attending Dr. Aviles Full code dispo - likely home - recent admission to [facility], recommended STR, patient declined. seen by PT here, recommended inpatient pulmonary rehab, pt declines at this time Continued hospital stay for treatment of acute on chronic respiratory failure requiring is scheduled DuoNebs, IV steroids Time Spent With Patient Time: Total time managing care of this patient today ____ minutes. Quality Stroke Does the patient have a stroke diagnosis?: No VTE Prior VTE?: No VTE Risk Level:: Medical - moderate - high VTE Device Contraindication: Treatment Not Indicated VTE Drug Contraindication: N/A - Med Ordered
--- NOTE | 2023-01-21 15:42 | MHC.CM.PN ---
Pt is active with [facility], he is looking to go back home with resumption of them and [facility] upon D/C. PT saw pt and are recommending pulmonary rehab, however pt is adamantly against going to rehab.
[2023-01-21] MEDS: Rivaroxaban 20 MG TABLET PO (16:53)
[2023-01-22] MEDS: traZODone HCL 100 MG TABLET PO (00:01)
[2023-01-22] MEDS: QUEtiapine Fumarate 200 MG TABLET PO (00:01)
[2023-01-22] MEDS: 0.9 % Sodium Chloride Flush 3 ML SYRINGE IVFLUSH ×2 (00:01→07:58)
[2023-01-22] MEDS: Zolpidem Tartrate 5 MG TABLET PO (00:56)
[2023-01-22 03:23] VITALS: BP 123/83; PULSE 130; RESP 18; TEMP 37; O2SAT 100
[2023-01-22] MEDS: Doxycycline Hyclate 100 MG in 0.9 % Sodium Chloride 250 ML 166.67 MG IV (04:05)
[2023-01-22 04:15] VITALS: PULSE 88
[2023-01-22] MEDS: methylPREDNISolone Sod Succ 40 MG/ML VIAL IVPUSH (06:02)
[2023-01-22 07:41] VITALS: BP 140/87; PULSE 101; RESP 16; TEMP 36.5; O2SAT 100
[2023-01-22] MEDS: dilTIAZem HCL CD 180 MG CAP.ER.24H PO (07:56)
[2023-01-22] MEDS: oxyCODONE HCl Immed Release 5 MG TABLET PO ×3 (07:57→15:21)
[2023-01-22] MEDS: Metoprolol Succinate ER 100 MG TAB.ER.24H PO (07:57)
[2023-01-22] MEDS: Famotidine 20 MG TABLET 40 MG PO (07:57)
[2023-01-22] MEDS: Atorvastatin Calcium 20 MG TABLET PO (07:58)
[2023-01-22 11:28] VITALS: BP 104/67; PULSE 101; RESP 20; TEMP 36.4; O2SAT 95
--- NOTE | 2023-01-22 12:40 | PM.DS ---
DS: Providers Provider Date of Service: 01/22/23 Date of admission: 01/19/23 16:10 Date of discharge: 01/22/23 Primary care physician: Olu Rawls MD Attending physician on discharge: Srinivasa Aviles Discharging clinician: Ángela Ashley DS: Diagnosis Discharge Diagnosis (1) Chronic obstructive pulmonary disease with acute exacerbation: Status: Acute DS: Summary Hospital Course Hospital Course: From H&P on day of admission 62-year-old man presented to the ER with complaints of worsening shortness of breath especially with ambulation that started a couple days ago.? He does have a history of chronic hypoxemic respiratory failure with history of COPD/emphysema on 2-3 L at baseline.? He was last discharged on 12/08/2022 and was treated for acute hypoxemic respiratory failure at that time as well.? He was not noted to be hypoxic but reported shortness of breath and wheezing.? He denied fever, chills, nausea, vomiting, diarrhea, recent travel, sick contacts.? In the ER, chest x-ray showed mild increased hazy opacification in the right upper lung possibly representing a developing infiltrate.? Sodium 130,, dioxide 32, negative COVID, flu and RSV.? In the ER he was given a dose of albuterol, Solu-Medrol, Rocephin and oxycodone.? He will be admitted for further management and treatment of acute on chronic hypoxic respiratory failure secondary to COPD exacerbation. Acute on chronic respiratory failure secondary to acute COPD exacerbation, without hypoxemia Initially treated with IV Solu-Medrol and breathing treatments as well as Doxycycline for likely bronchitis. He was continue on supplemental oxygen, on baseline 3L. He has remained afebrile. He has been able to ambulated without shortness of breath. He was evaluated by PT who recommended inpatient pulmonary rehab, however the patient declined rehab and opted to return home. He will be discharged home to complete pulse dose of steroids and then should return to his baseline dose of prednisone. Time Spent with Patient Time attestation: Total time managing care of this patient today ____ minutes. Discharge coordination time: Greater than 30 minutes Quality: Safe Use of Opioids Does Pt have an Active Cancer Diagnosis on the Problem List?: No Quality: Stroke Does the patient have a stroke diagnosis?: No Physical Exam Vital Signs: Vital Signs: Last Vital Signs Temp 97.6 F 01/22/23 11:28 Pulse 101 H 01/22/23 11:28 Resp 20 01/22/23 11:28 BP 104/67 01/22/23 11:28 Pulse Ox 95 01/22/23 11:28 O2 Del Method Nasal Cannula 01/22/23 11:28 O2 Flow Rate 1 01/22/23 11:28 Oxygen Flow Rate 3 01/19/23 10:31 BMI result Body Mass Index 17.3 Const: General: comfortable, no acute distress, alert and awake Nutritional Appearance: thin Orientation/consciousness: patient oriented x3 Resp: Effort & Inspection: normal respiratory effort, able to speak in complete sentences, no respiratory distress and no use of accessory muscles Cardio: Rate: regular rate Heart sounds: S1 normal heart sound present and S2 normal heart sound present GI: Inspection: No distended Palpation (GI): Soft to palpation Neuro: General: patient oriented x3 and CN's II-XI intact bilaterally Extrem: General: Yes no pedal edema DS: Data Data Completed and Pending Completed studies during hospitalization [Text1]: Procedures Assistance with Respiratory Ventilation, Less than 24 Consecutive Hours, Continuous Positive Airway Pressure (12/04/22) Labs on day of discharge: Preliminary micro results at discharge 01/19/23 11:40 Blood Culture - Preliminary Blood - Venous No growth after 48 hours. 01/19/23 11:40 Blood Culture - Preliminary Blood - Venous No growth after 48 hours. Discharge Plan Discharge Anticipated Discharge Date/Time: 01/22/23 12:11 Patient Disposition: Home Health Service Discharge Diagnosis: COPD exacerbation Referrals: Deyanira ARREAGA [Outside] - 1 Week Olu Rawls MD [Primary Care Provider] - 1 Week Discharge Medications: New prednisone 20 mg tablet 40 mg PO DAILY 5 Days Qty: 10 0RF doxycycline hyclate 100 mg tablet 100 mg PO BID 3 Days Qty: 6 0RF Continued albuterol sulfate 90 mcg/actuation HFA aerosol inhaler 2 puff inhalation Q6H PRN (Reason: bronchospasm) Qty: 8.5 8RF famotidine 40 mg tablet 40 mg PO DAILY Qty: 90 8RF diltiazem HCl 180 mg capsule,extended release 24hr 180 mg PO DAILY Qty: 120 5RF Xarelto 20 mg tablet 20 mg PO DAILY Qty: 90 4RF Rx Instructions: Must call and make a cardiology appt lorazepam 0.5 mg tablet 0.5 mg PO BEDTIME PRN (Reason: anxiety) Qty: 90 4RF quetiapine 200 mg tablet 200 mg PO DAILY@0000 Qty: 90 3RF Rx Instructions: PATIENT REQUESTED TO TAKE AFTER MIDNIGHT zolpidem 10 mg tablet 10 mg PO DAILY@0000 PRN (Reason: insomnia) Qty: 30 3RF Rx Instructions: PATIENT REQUESTED TO TAKE AFTER MIDNIGHT fluticasone propion-salmeterol [Wixela Inhub] 250-50 mcg/dose blister with device 1 ea PO BID Qty: 180 0RF simvastatin 40 mg tablet 40 mg PO DAILY magnesium oxide 400 mg (241.3 mg magnesium) tablet 400 mg PO DAILY trazodone 100 mg tablet 100 mg PO DAILY@0000 Rx Instructions: PATIENT REQUESTED TO TAKE AFTER MIDNIGHT docusate sodium [Colace] 100 mg capsule 100 mg PO BID PRN (Reason: constipation) Qty: 30 0RF metoprolol succinate 100 mg tablet extended release 24 hr 100 mg PO BID multivitamin Tablet 1 tab PO DAILY ipratropium-albuterol 0.5 mg-3 mg(2.5 mg base)/3 mL solution for nebulization 3 ml inhalation QID furosemide 20 mg tablet 40 mg PO DAILY oxycodone 5 mg tablet 5 mg PO Q4H Held prednisone 5 mg tablet 5 mg PO DAILY Qty: 30 0RF Hold Instructions: resume after completing 40 mg of prednisone for 5 days No Action (DME) compr.stocking,knee,long,x-lrg Misc See Rx Instructions .Route Qty: 2 0RF Rx Instructions: As directed Discharge Orders: Discharge Order (Routine); Ordered 01/22/23 Ordered By: Ángela Ashley Activity on Discharge: As tolerated Stand Alone Forms: Patient Portal Discharge page Care Plan Goals: see below Health Concerns: COPD exacerbation bronchitis Plan of Treatment: complete 5 day course of prednisone and then return to previous baseline dose complete course of antibiotics as prescribed call to schedule follow up appointment with PCP Assessment: see discharge summary
--- NOTE | 2023-01-22 12:43 | MHC.CLN ---
F/U DIET RX: 2GM NA-APPROPRIATE ENSURE BID TO INCREASE KCALS AND PROMOTE WT GAIN. SUPPLEMENT PROVIDES 700 KCALS, 40 G PROTEIN. GOOD INTAKE AT MEALS REPORTED. MONITOR PO INTAKE CLOSELY.
--- NOTE | 2023-01-22 12:50 | P.F2F_ITS ---
Service Date Service Date: 01/22/23 Encounter Date of encounter: 01/22/23 Reasons for Services Signs and symptoms assessed: needs home physical therapy for muscle weakness, gross deconditioning Reason for physical therapy: therapeutic exercises, gait/transfer training and energy conservation MD Overseeing Care: Olu Rawls Homebound: Leaving the home is medically contraindicated at this time without the asist of a device and/or another person due th the listed conditions above and below. Reason homebound: weakness related to hospital stay Certification: Based on the above findings, I certify that this patient is confined to the home and needs intermittent penitentiary care, physical therapy and/or speech therapy, or continues to need occupational therapy. The patient is under my care, and I have initiated the establishment of the plan of care. The patient will be followed by a physician who will periodically review the plan of care. Time Spent With Patient Time: Total time managing care of this patient today ____ minutes.
--- NOTE | 2023-01-22 12:50 | P.CDIM_ITS ---
PROVIDER RESPONSE TEXT: To clarify, the appropriate diagnosis supported by the clinical indicators: Underweight QUERY TEXT: PHYSICIAN'S DOCUMENTATION REQUEST Date of Query: 01/22/2023 08:07 AM EDT Patient Name: Kelechi Amado Admit Date: 01/19/2023 Dear Ángela Ashley, A review of the medical record indicates additional documentation may be needed. Please review below and update the documentation accordingly. Clinical Indicators: Clinical nutrition note 01/20 - patient is underweight Poor PO intake R/T acute illness BMI 17.3 Patient agreed to drink Ensure to increase KCALS. If possible, please provide an associated diagnosis related to the abnormal BMI, such as: Underweight Weight loss Cachexia Anorexia Other please specify Other (explain)Clinically unable to determine (explain)Thank you, Nano [place], CCS, CDIS Use of terms such as suspected, likely, concern for, or probable (associated with a specific diagnosi s that is being evaluated, monitored, or treated as if it exists) are acceptable and can be coded in the inpatient se tting, when documented at the time of discharge. Please use your independent medical judgment in providing your response. THIS QUERY IS PART OF THE PERMANENT MEDICAL RECORD
--- NOTE | 2023-01-22 14:40 | MHC.CM.PN ---
Second IMM 01/22. Pt is medically cleared for D/C home with resumption of [facility] and [facility] services. Transportation set up at for 3pm today via [facility]. Pt was given a meal to take home, he reports he will have food delivered to him for tomorrow.
[2023-01-22 15:16] VITALS: BP 124/82; PULSE 98; RESP 19; TEMP 36.7; O2SAT 98
== END 2023-01-22 16:27 | disposition home health service (06) | DRG 190 ==
LOC: HO.ED 16:01 → HO.EDOVER 16:18 → HO.IMC 19:31
PROVIDERS: Registered Nurse Emergency; Admitting Provider Nurse Practitioner Acute Care; Emergency Provider Emergency Medicine; PCP Internal Medicine; Visit Provider Physician Assistant Medical
DX: J44.1 Chronic obstructive pulmonary disease with (acute) exacerbation (principal); J96.20 Acute and chronic respiratory failure, unspecified whether with hypoxia or hypercapnia; E87.1 Hypo-osmolality and hyponatremia; I48.19 Other persistent atrial fibrillation; Z68.1 Body mass index [BMI] 19.9 or less, adult; E86.0 Dehydration; G89.29 Other chronic pain; I50.9 Heart failure, unspecified; I11.0 Hypertensive heart disease with heart failure; R63.6 Underweight; E78.00 Pure hypercholesterolemia, unspecified; Z99.81 Dependence on supplemental oxygen; Z79.01 Long term (current) use of anticoagulants; Z87.891 Personal history of nicotine dependence; Z79.51 Long term (current) use of inhaled steroids; Z79.899 Other long term (current) drug therapy
CPT/HCPCS: 0241U; 36415; 71046; 80048; 80053; 81001; 81003; 82803; 83605; 83880; 84484; 85025; 85027; 85610; 87040; 93005; 94640; 97162; 99222; 99285; J0696; J2920; J2930

== ENCOUNTER → 2023-01-19 10:48 | Outpatient (BNV) | payer MEDICARE, SELFPAY | PROVIDERS: Emergency Provider Emergency Medicine; PCP Internal Medicine; Visit Provider Internal Medicine Cardiovascular Disease | DX: R06.02 Shortness of breath (principal) | CPT/HCPCS: 93010 ==

== ENCOUNTER → 2023-01-19 16:10 | Outpatient (BNV) | payer MEDICARE, SELFPAY | PROVIDERS: Admitting Provider Nurse Practitioner Acute Care; Emergency Provider Emergency Medicine; PCP Internal Medicine; Visit Provider Nurse Practitioner Acute Care | DX: J44.1 Chronic obstructive pulmonary disease with (acute) exacerbation (principal) | CPT/HCPCS: 99223; 99232; 99239; G0180 ==

== ENCOUNTER 2023-02-05 08:39 | Outpatient (AMB) | payer MEDICARE, SELFPAY ==
--- NOTE | 2023-02-05 08:36 | A.OFFPC_ITS ---
Intake Visit Reasons: Med Management Intake Note: Patient is here to follow up on med management. Cone Sewer Required: No Seasonal Greenery Bundler: Not Required per policy Accompanied by: Self / Same As Patient Allergies No Known Allergies Allergy (Verified 02/05/23 08:37) Medication List - Last Reconciled 02/05/23 by Olu Rawls MD albuterol sulfate 90 mcg/actuation 2 puffs inhalation Q6H PRN compr.stocking,knee,long,x-lrg As directed diltiazem HCl 180 mg PO DAILY docusate sodium (Colace) 100 mg PO BID PRN doxycycline hyclate 100 mg PO BID 3 days famotidine 40 mg PO DAILY fluticasone propion-salmeterol 250-50 mcg/dose (Wixela Inhub) 1 ea PO BID furosemide 40 mg PO DAILY ipratropium-albuterol 0.5 mg-3 mg(2.5 mg base)/3 mL 3 mL inhalation QID lorazepam 0.5 mg PO BEDTIME PRN magnesium oxide 400 mg PO DAILY metoprolol succinate ER 100 mg PO BID multivitamin 1 tab PO DAILY oxycodone 5 mg PO Q4H prednisone 40 mg (2 x 20 mg) PO DAILY 5 days prednisone 5 mg PO DAILY quetiapine 200 mg PO DAILY@0000 rivaroxaban (Xarelto) 20 mg PO DAILY simvastatin 40 mg PO DAILY trazodone 100 mg PO DAILY@0000 zolpidem 10 mg PO DAILY@0000 PRN Tobacco use date assessed: 02/05/23 HPI Med Management HPI Details chronic back pain; stable PFSH Medical History (Updated 01/19/23 @ 16:22 by Carmen Segovia NP) Atrial fibrillation Back pain Chronic respiratory failure with hypoxia COPD (chronic obstructive pulmonary disease) COVID-19 vaccine series completed Dependence on continuous supplemental oxygen Elevated cholesterol History of cardioversion HTN (hypertension) Persistent atrial fibrillation Surgical History H/O colonoscopy History of back surgery History of esophagogastroduodenoscopy (EGD) Family History Father No problems noted. Mother No problems noted. Father No problems noted. Mother No problems noted. Social History Household Members: None Housing: Apartment Are you a primary manager intensive care to a significant other at home: No Do you presently have visiting nurse or other home services: Yes Alcohol intake: never Patient Tobacco Use Status: Former Tobacco user Quit Date: 2000 Tobacco use type: Cigarette e-Cigarette/Vaping Use: Never Used Second Hand Smoke Exposure: No service: No Current occupational status: disabled Cognitive needs: No Hearing needs: No Vision needs: Yes Questionnaire Thrive Questionnaire Date Thrive assessed: 01/20/23 FERNANDO-7 AMB Questionnaire FERNANDO-7 Date FERNANDO - 7 assessed: 09/18/22 Source: Developed by Drs. Jaime Dykes, Angélica Foley, Oren Burns and colleagues, with an educational na from [employer]. Review of Systems Const Denies chills, Denies headache(s) and Denies weight loss ENT Denies headache(s) Card Denies chest pain, Denies syncope, Denies irregular heart rhythm and Denies dyspnea Resp Denies chest congestion, Denies cough and Denies dyspnea GI Denies abdominal pain, Denies change in stool character, Denies nausea and Denies vomiting Musc Denies deformity and Denies joint swelling Neuro Denies syncope and Denies headache(s) Physical exam (Primary Care) Tobacco/Smoking Status: Tobacco use Status Tobacco use date assessed 02/05/23 02/05/23 08:38 Patient Tobacco Use Status Former Tobacco user 02/05/23 08:38 Tobacco use type Cigarette 02/05/23 08:38 e-Cigarette/Vaping Use Never Used 02/05/23 08:38 Thrive Assessment: Date of Thrive Assessment Date Thrive assessed 01/20/23 02/05/23 08:38 Telehealth Telehealth Location of provider rendering services: practice address Location of patient: address on file Patient Identification confirmed using: Name, : Yes Telehealth method: voice only Patient verbally consented to treatment: Yes Patient verbally consented to billing insurance company: Yes Patient informed of any privacy concerns related to visit: Yes Minutes spent on Phone/Video with Pt.: 15 (telerphone) Assessment and Plan Assessment & Plan (1) Back pain: Code(s): M54.9 - Dorsalgia, unspecified Plan: stable same rx Medications: Refilled oxycodone 5 mg PO Q4-6H PRN 140 tabs 0RF pain 28 days M54.9 - Dorsalgia, unspecified Olu Rawls MD Discontinued oxycodone 5 mg PO Q4-6H PRN 140 tabs 0RF pain 28 days M54.9 - Dorsalgia, unspecified Kate Stewart, [facility] quetiapine 200 mg PO BEDTIME 30 tabs 6RF zolpidem 10 mg PO BEDTIME PRN 30 tabs 5RF insomnia trazodone 100 mg PO BEDTIME 90 tabs 8RF Coding Level of Care Code Tele Est Pt Level 3 (93180) Diagnoses Back pain M54.9
== END 2023-02-05 09:10 | disposition home or self-care (01) ==
LOC: HO.HMGH 08:39
PROVIDERS: PCP Internal Medicine; Visit Provider Internal Medicine
DX: M54.9 Dorsalgia, unspecified (principal)
CPT/HCPCS: G2252

== ENCOUNTER 2023-03-05 08:34 | Outpatient (AMB) | payer MEDICARE, MEDICAID, SELFPAY ==
--- NOTE | 2023-03-05 08:31 | MHC.PC.OV ---
Intake Visit Reasons: Med Management Allergies No Known Allergies Allergy (Verified 03/05/23 08:32) Medication List - Last Reconciled 03/05/23 by Olu Rawls MD albuterol sulfate 90 mcg/actuation 2 puffs inhalation Q6H PRN compr.stocking,knee,long,x-lrg As directed diltiazem HCl 180 mg PO DAILY docusate sodium (Colace) 100 mg PO BID PRN doxycycline hyclate 100 mg PO BID 3 days famotidine 40 mg PO DAILY fluticasone propion-salmeterol 250-50 mcg/dose (Wixela Inhub) 1 ea PO BID furosemide 40 mg PO DAILY ipratropium-albuterol 0.5 mg-3 mg(2.5 mg base)/3 mL 3 mL inhalation QID lorazepam 0.5 mg PO BEDTIME PRN magnesium oxide 400 mg PO DAILY metoprolol succinate ER 100 mg PO BID multivitamin 1 tab PO DAILY oxycodone 5 mg PO Q4H oxycodone 5 mg PO Q4-6H PRN 28 days prednisone 40 mg (2 x 20 mg) PO DAILY 5 days prednisone 5 mg PO DAILY quetiapine 200 mg PO DAILY@0000 rivaroxaban (Xarelto) 20 mg PO DAILY simvastatin 40 mg PO DAILY trazodone 100 mg PO DAILY@0000 zolpidem 10 mg PO DAILY@0000 PRN Tobacco use date assessed: 02/05/23 Fall risk assessment: No Falls in past year Last assessed Fall Risk: 03/05/23 Dental Screening Dental Screen Date: 03/05/23 Did you have a dental visit in the last 12 months?: Yes Did you have a dental problem in the last 6 months where you did not have access to dental care?: No Was dental information given to patient?: Patient has dentist HPI Med Management HPI Details chronic back pain on pain management; doing well on current bryce,en; compliant [facility] Medical History Atrial fibrillation Chronic respiratory failure with hypoxia History of cardioversion COVID-19 vaccine series completed Dependence on continuous supplemental oxygen Elevated cholesterol HTN (hypertension) Persistent atrial fibrillation Back pain COPD (chronic obstructive pulmonary disease) Surgical History History of back surgery History of esophagogastroduodenoscopy (EGD) H/O colonoscopy Family History Father No problems noted. Mother No problems noted. Father No problems noted. Mother No problems noted. Social History Household Members: None Housing: Apartment Are you a primary pet caretaker to a significant other at home: No Do you presently have visiting nurse or other home services: Yes Alcohol intake: never Patient Tobacco Use Status: Former Tobacco user Quit Date: 2000 Tobacco use type: Cigarette e-Cigarette/Vaping Use: Never Used Second Hand Smoke Exposure: No service: No Current occupational status: disabled Cognitive needs: No Hearing needs: No Vision needs: Yes Questionnaire PHQ-9 Over the last 2 weeks, how often have you been bothered by any of the following problems? 1. Little interest or pleasure in doing things: not at all 2. Feeling down, depressed, or hopeless: not at all 3. Trouble falling or staying asleep, or sleeping too much: not at all 4. Feeling tired or having little energy: not at all 5. Poor appetite or overeating: not at all 6. Feeling bad about yourself - or that you are a failure or have let yourself or your family down: not at all 7. Trouble concentrating on things, such as reading the newspaper or watching television: not at all 8. Moving or speaking so slowly that other people could have noticed. Or the opposite - being so fidgety or restless that you have been moving around a lot more than usual: not at all 9. Thoughts that you would be better off or of hurting yourself in some way: not at all Total score: 0 Source: Developed by Drs. Jaime Dykes, Angélica Foley, Oren Burns and colleagues, with an educational na from [employer]. Thrive Questionnaire Date Thrive assessed: 01/20/23 AUDIT C Alcohol Use Questionnaire (AUDIT-C) 1. How often do you have a drink containing alcohol?: Never Total Score: 0 Score Reviewed/Action Taken: Yes FERNANDO-7 AMB Questionnaire FERNANDO-7 Date FERNANDO - 7 assessed: 09/18/22 Source: Developed by Drs. Jaime Dykes, Angélica Foley, Oren Burns and colleagues, with an educational na from [employer]. Review of Systems Const Denies chills, Denies headache(s) and Denies weight loss ENT Denies headache(s) Card Denies chest pain, Denies syncope, Denies irregular heart rhythm and Denies dyspnea Resp Denies chest congestion, Denies cough and Denies dyspnea GI Denies abdominal pain, Denies change in stool character, Denies nausea and Denies vomiting Musc Denies deformity and Denies joint swelling Neuro Denies syncope and Denies headache(s) Physical exam (Primary Care) Tobacco/Smoking Status: Tobacco use Status Tobacco use date assessed 02/05/23 03/05/23 08:32 Patient Tobacco Use Status Former Tobacco user 03/05/23 08:32 Tobacco use type Cigarette 03/05/23 08:32 e-Cigarette/Vaping Use Never Used 03/05/23 08:32 PHQ-9: PHQ-9 Score PHQ-9: Total score 0 03/05/23 08:32 Thrive Assessment: Date of Thrive Assessment Date Thrive assessed 01/20/23 03/05/23 08:32 Telehealth Telehealth Location of provider rendering services: practice address Location of patient: address on file Patient Identification confirmed using: Name, : Yes Telehealth method: voice only Patient verbally consented to treatment: Yes Patient verbally consented to billing insurance company: Yes Patient informed of any privacy concerns related to visit: Yes Minutes spent on Phone/Video with Pt.: 15 (telephone) Assessment and Plan Assessment & Plan (1) Back pain: Code(s): M54.9 - Dorsalgia, unspecified Plan: stable; same rx Medications: Refilled oxycodone 5 mg PO Q4-6H 28 days PRN 140 tabs 0RF pain M54.9 - Dorsalgia, unspecified Coding Level of Care Code Tele Est Pt Level 3 (60053) Diagnoses Back pain M54.9
== END 2023-03-05 09:15 | disposition home or self-care (01) ==
LOC: HO.HMGH 08:34
PROVIDERS: PCP Internal Medicine; Visit Provider Internal Medicine
DX: M54.9 Dorsalgia, unspecified (principal)
CPT/HCPCS: 99442